=== PATIENT | male | born 1955 | race African-American/Black ===

== ENCOUNTER 2018-12-31 16:48 | Observation (INO) ==
[2018-12-31] MEDS ORDERED: MORPHINE 4 MG/1 ML VIAL IV STA (17:13)
[2018-12-31] MEDS ORDERED: FUROSEMIDE 40 MG/4 ML VIAL IV STA (17:13)
[2018-12-31] MEDS ORDERED: ASPIRIN 325 MG TABLET PO STA (17:13)
[2018-12-31] MEDS ORDERED: ONDANSETRON 4 MG/2 ML VIAL IV STA (17:13)
[2018-12-31] MEDS ORDERED: NITROGLYCERIN 2% OINT 1 INCH/GM PACK TOP STA (17:13)
[2018-12-31] MEDS ORDERED: PANTOPRAZOLE 40 MG VIAL IV STA (17:13)
[2018-12-31] MEDS ORDERED: ALUM/MAG/SIMETH/LIDO VISC 1:1 30 ML BOTTLE PO STA (17:13)
[2018-12-31] MEDS ORDERED: ALBUTEROL/IPRATROPIUM 3 ML NEB RESP TX STA (17:13)
[2018-12-31] MEDS ORDERED: methylPREDNISolone SOD SUC 125 MG/2 ML VIAL IV STA (17:13)
[2018-12-31 17:41] LABS: INR 0.9
[2018-12-31 17:49] LABS: Alanine Aminotransferase 32 U/L (16-61); Albumin 4.2 G/DL (3.4-5.0); Alkaline Phosphatase 71 U/L (45-117); Amylase 94 U/L (25-115); Aspartate Amino Transferase 26 U/L (0-37); Bilirubin,Total < 0.39 MG/DL (0.2-1.0); Blood Urea Nitrogen 18 MG/DL (7-18); Glucose 121 MG/DL (74-106); Osmolality,Calculated 281.4 MOS/KG (273-304); Potassium 3.6 MMOL/L (3.5-5.1); Sodium 140 MMOL/L (136-145); Total Protein 8.1 G/DL (6.4-8.3)
[2018-12-31 18:19] LABS: Basophils % 0.2 % (0.0-0.8); Hemoglobin 15.4 GM/DL (14.0-18.0); Immature Granulocytes % 0.4 %; Immature Granulocytes Absolute 0.05 #; Lymphocytes # 1.2 10*3/uL (1.4-4.0); Lymphocytes % 9.8 % (21.2-54.2); Mean Corpuscular HGB Conc 34.2 GM/DL (32-36); Mean Corpuscular Hemoglobin 34 PG (27-34); Mean Corpuscular Volume 98.5 FL (87-102); Mean Platelet Volume 10.1 FL (9.6-12.0); Monocytes # 0.9 10*3/uL (0.11-0.8); Monocytes % 7.4 % (1.7-12.7); Neutrophils # 10.4 10*3/uL (1.4-7.4); Neutrophils % 82.2 % (38.7-73.9); Platelet Count 320 T/CUMM (130-400); Red Blood Count 4.57 MC/CUMM (3.8-5.5); Red Cell Distribution Width 13.3 % (9.3-17.3); White Blood Count 12.6 T/CUMM (4-12)
[2018-12-31 18:39] LABS: Apearance,Urine CLEAR (Clear); Bacteria,Urine Occasional /HPF (Few); Bilirubin,Urine Negative (Negative); Blood, Urine Negative (Negative); Glucose,Urine (UA) Negative (Negative); Hyaline Casts,Urine 1 /LPF (0-3); Ketones,Urine Negative (Negative); Nitrite,Urine Negative (Negative); Protein,Urine Negative; RBC,Urine <1 /HPF (0-4); Squamous Epithelial Cell,Urine Occasional /HPF (0-10); Urine Color Yellow (Yellow); Urine Specific Gravity 1.013 (1.001-1.035); Urine Urobilinogen < 2.0 EU/DL (0.2-1.0); WBC,Urine 1 /HPF (0-6)
[2018-12-31] MEDS ORDERED: ACETAMINOPHEN 325 MG TABLET PO PRN (18:59)
[2018-12-31] MEDS ORDERED: ONDANSETRON 4 MG/2 ML VIAL IV PRN (18:59)
[2018-12-31] MEDS ORDERED: CYCLOBENZAPRINE 10 MG TABLET PO PRN (19:02)
[2018-12-31] MEDS ORDERED: MORPHINE 4 MG/1 ML VIAL IV PRN (19:08)
[2018-12-31 19:12] LABS: Barbiturates Screen,Urine Negative (Negative); Benzodiazepines Screen,Urine Negative (Negative); Cannabinoid Screen,Urine Negative (Negative); Opiate Screen,Urine Negative (Negative); Phencyclidine Screen,Urine Negative (Negative)
[2018-12-31] MEDS: ALBUTEROL/IPRATROPIUM 3 ML NEB RESP TX SCH (19:33)
[2018-12-31] MEDS: ENOXAPARIN 40 MG/0.4 ML SYRINGE SUBCUT SCH (20:50)
[2018-12-31] MEDS: cloNIDine 0.1 MG TABLET PO SCH (20:50)
[2018-12-31] MEDS: MAGNESIUM CHLORIDE 64 MG TABLET PO SCH (20:51)
[2018-12-31] MEDS: chlordiazePOXIDE 25 MG CAPSULE PO SCH (20:51)
[2018-12-31] MEDS: THIAMINE 100 MG TABLET PO SCH (20:51)
[2018-12-31 21:12] LABS: Troponin I < 0.015 NG/ML (0.00-0.045)
[2019-01-01] MEDS: traMADol 50 MG TABLET PO PRN ×2 (00:21→08:13)
[2019-01-01] MEDS: ALBUTEROL/IPRATROPIUM 3 ML NEB RESP TX SCH ×4 (02:02→19:48)
[2019-01-01 04:55] LABS: Basophils % 0.1 % (0.0-0.8); Hematocrit 43.7 VOL% (42.0-52.0); Hemoglobin 14.8 GM/DL (14.0-18.0); Immature Granulocytes % 0.6 %; Immature Granulocytes Absolute 0.08 #; Lymphocytes # 0.2 10*3/uL (1.4-4.0); Lymphocytes % 1.9 % (21.2-54.2); Mean Corpuscular HGB Conc 33.9 GM/DL (32-36); Mean Corpuscular Hemoglobin 34 PG (27-34); Mean Corpuscular Volume 99.3 FL (87-102); Mean Platelet Volume 10.8 FL (9.6-12.0); Monocytes # 0.3 10*3/uL (0.11-0.8); Monocytes % 2.7 % (1.7-12.7); Neutrophils # 11.9 10*3/uL (1.4-7.4); Neutrophils % 94.7 % (38.7-73.9); Platelet Count 278 T/CUMM (130-400); Red Cell Distribution Width 13.4 % (9.3-17.3); White Blood Count 12.6 T/CUMM (4-12)
[2019-01-01 05:18] LABS: Troponin I < 0.015 NG/ML (0.00-0.045)
[2019-01-01 05:24] LABS: Albumin 4.2 G/DL (3.4-5.0); Bilirubin,Total 0.8 MG/DL (0.2-1.0); Calcium 9.2 MG/DL (8.5-10.1); Potassium 4.1 MMOL/L (3.5-5.1); Thyroid Stimulating Hormone 0.153 uIU/ml (0.358-3.74); Total Protein 7.9 G/DL (6.4-8.3)
[2019-01-01 06:49] LABS: Lymphocytes 3 % (20-55); Segmented Neutrophils 96 % (50-85); Total Cells Counted 100
[2019-01-01 06:50] LABS: Platelet Estimate Normal; Schistocytes Slight
[2019-01-01] MEDS ORDERED: FUROSEMIDE 40 MG/4 ML VIAL IV ONE (07:17)
[2019-01-01] MEDS: PANTOPRAZOLE 40 MG TABLET PO SCH (08:14)
[2019-01-01] MEDS: chlordiazePOXIDE 25 MG CAPSULE PO SCH ×3 (08:14→20:58)
[2019-01-01] MEDS: THIAMINE 100 MG TABLET PO SCH ×2 (08:14→21:06)
[2019-01-01] MEDS: POTASSIUM CHLORIDE 10 MEQ TABLET PO SCH (08:14)
[2019-01-01] MEDS: ASPIRIN EC 325 MG TABLET PO SCH (08:14)
[2019-01-01] MEDS: cloNIDine 0.1 MG TABLET PO SCH (08:14)
[2019-01-01] MEDS: MAGNESIUM CHLORIDE 64 MG TABLET PO SCH ×2 (08:15→20:58)
[2019-01-01] MEDS: LEVOFLOXACIN INJ 500 MG in PREMIX 1 EACH IV SCH (08:15)
[2019-01-01] MEDS: NICOTINE 14 MG/24 HR PATCH TRANSDERM SCH (08:16)
[2019-01-01] MEDS ORDERED: VERAPAMIL 120 MG TABLET PO SCH (09:00)
[2019-01-01] MEDS ORDERED: LORazepam 2 MG/1 ML VIAL IV PRN (16:10)
[2019-01-01] MEDS: BUDESONIDE/FORMOTEROL 160-4.5 INHALER 6 GM INH SCH (20:58)
[2019-01-01] MEDS ORDERED: MONTELUKAST 10 MG TABLET PO SCH (21:00)
[2019-01-01] MEDS: ENOXAPARIN 40 MG/0.4 ML SYRINGE SUBCUT SCH (21:00)
[2019-01-01] MEDS ORDERED: ATORVASTATIN 10 MG TABLET PO SCH (21:00)
[2019-01-02] MEDS: ALBUTEROL/IPRATROPIUM 3 ML NEB RESP TX SCH ×2 (01:26→07:56)
[2019-01-02] MEDS: chlordiazePOXIDE 25 MG CAPSULE PO SCH (05:46)
[2019-01-02 06:09] LABS: Risk Ratio 2.3; VLDL CHOLESTEROL 25.4 MG/DL
[2019-01-02] MEDS: POTASSIUM CHLORIDE 10 MEQ TABLET PO SCH (08:05)
[2019-01-02] MEDS: THIAMINE 100 MG TABLET PO SCH (08:05)
[2019-01-02] MEDS: PANTOPRAZOLE 40 MG TABLET PO SCH (08:06)
[2019-01-02] MEDS: ASPIRIN EC 325 MG TABLET PO SCH (08:06)
[2019-01-02] MEDS: MAGNESIUM CHLORIDE 64 MG TABLET PO SCH (08:06)
[2019-01-02] MEDS: LEVOFLOXACIN INJ 500 MG in PREMIX 1 EACH IV SCH (08:06)
[2019-01-02] MEDS: BUDESONIDE/FORMOTEROL 160-4.5 INHALER 6 GM INH SCH (08:07)
[2019-01-02] MEDS: NICOTINE 14 MG/24 HR PATCH TRANSDERM SCH (08:08)
[2019-01-02] MEDS ORDERED: FOLIC ACID 1 MG TABLET PO SCH (09:00)
[2019-01-02] MEDS ORDERED: VERAPAMIL SR 240 MG TABLET PO SCH (09:00)
[2019-01-02 09:19] VITALS: BP 128/83
== END 2019-01-02 10:55 | disposition home or self-care (01) ==
LOC: EDBD → EDUNIT# → N.ED 16:48 → N.EDINP 16:48 → SUATTDRO 18:43 → N.5E 19:52
PROVIDERS: ADMIT Internal Medicine; ATTEND Internal Medicine

== ENCOUNTER 2019-06-14 13:30 | Inpatient (IN) ==
[2019-06-14] MEDS ORDERED: methylPREDNISolone SOD SUC 125 MG/2 ML VIAL ONE (13:38)
[2019-06-14] MEDS ORDERED: FAMOTIDINE 20 MG/2 ML VIAL IV ONE (13:38)
[2019-06-14] MEDS ORDERED: methylPREDNISolone SOD SUC 125 MG/2 ML VIAL IV STA (13:43)
[2019-06-14] MEDS ORDERED: FAMOTIDINE 20 MG/2 ML VIAL IV STA (13:43)
[2019-06-14] MEDS ORDERED: ONDANSETRON 4 MG/2 ML VIAL IV PRN (17:27)
[2019-06-14] MEDS ORDERED: ALBUTEROL 2.5 MG/3 ML NEB RESP TX PRN ×2 (17:27→23:00)
[2019-06-14 17:32] LABS: Basophils % 0.2 % (0.0-0.8); Hematocrit 54.7 VOL% (42.0-52.0); Hemoglobin 18.4 GM/DL (14.0-18.0); Immature Granulocytes % 0.4 %; Immature Granulocytes Absolute 0.04 #; Lymphocytes # 0.3 10*3/uL (1.4-4.0); Lymphocytes % 2.9 % (21.2-54.2); Mean Corpuscular HGB Conc 33.6 GM/DL (32-36); Mean Corpuscular Volume 100.4 FL (87-102); Mean Platelet Volume 10.5 FL (9.6-12.0); Monocytes % 1.3 % (1.7-12.7); Neutrophils % 95.2 % (38.7-73.9); Platelet Count 223 T/CUMM (130-400); Red Blood Count 5.45 MC/CUMM (3.8-5.5); Red Cell Distribution Width 14.6 % (9.3-17.3); White Blood Count 10.5 T/CUMM (4-12)
[2019-06-14 17:57] LABS: Calcium 9.7 MG/DL (8.5-10.1); Osmolality,Calculated 278.4 MOS/KG (273-304)
[2019-06-14 17:59] LABS: Anisocytosis 1+; Lymphocytes 2 % (20-55); Macrocytosis 1+; Platelet Estimate Normal; Polychromasia Slight; Segmented Neutrophils 98 % (50-85); Total Cells Counted 100
[2019-06-14 18:00] LABS: Atypical Lymphocytes 1+
[2019-06-14] MEDS ORDERED: LORazepam 1 MG TABLET PO PRN (19:09)
[2019-06-14] MEDS ORDERED: ONDANSETRON ODT 4 MG TABLET PO PRN (19:49)
[2019-06-14] MEDS: ENOXAPARIN 40 MG/0.4 ML SYRINGE SUBCUT SCH (20:15)
[2019-06-14] MEDS: methylPREDNISolone SOD SUC 125 MG/2 ML VIAL IV SCH (20:15)
[2019-06-14] MEDS: MAGNESIUM CHLORIDE 64 MG TABLET PO SCH (20:30)
[2019-06-14] MEDS: CYCLOBENZAPRINE 10 MG TABLET PO SCH (20:30)
[2019-06-14] MEDS: diphenhydrAMINE 50 MG/1 ML VIAL IV SCH ×2 (20:30→23:48)
[2019-06-14] MEDS: BUDESONIDE/FORMOTEROL 160-4.5 INHALER 6 GM INH SCH (22:22)
[2019-06-14] MEDS ORDERED: MAGNESIUM SULF RIDER 1 GM in PREMIX 1 EACH IV ONE (22:30)
[2019-06-14] MEDS: MAGNESIUM SULF RIDER 1 GM in PREMIX 1 EACH IV ONE ×2 (22:46→22:51)
[2019-06-15] MEDS ORDERED: hydrALAZINE 20 MG/1 ML VIAL IV PRN (00:05)
[2019-06-15] MEDS: methylPREDNISolone SOD SUC 125 MG/2 ML VIAL IV SCH ×4 (02:31→21:34)
[2019-06-15] MEDS: FAMOTIDINE 20 MG/2 ML VIAL IV SCH ×2 (02:31→14:31)
[2019-06-15] MEDS: diphenhydrAMINE 50 MG/1 ML VIAL IV SCH ×4 (05:58→23:44)
[2019-06-15 06:43] LABS: Basophils % 0.2 % (0.0-0.8); Hematocrit 56.6 VOL% (42.0-52.0); Hemoglobin 19.2 GM/DL (14.0-18.0); Immature Granulocytes % 0.2 %; Immature Granulocytes Absolute 0.02 #; Lymphocytes # 0.4 10*3/uL (1.4-4.0); Mean Corpuscular HGB Conc 33.9 GM/DL (32-36); Mean Corpuscular Volume 99.5 FL (87-102); Monocytes % 1.6 % (1.7-12.7); Platelet Count 211 T/CUMM (130-400); Red Blood Count 5.69 MC/CUMM (3.8-5.5); Red Cell Distribution Width 14.6 % (9.3-17.3); White Blood Count 8.8 T/CUMM (4-12)
[2019-06-15 07:05] LABS: Albumin 3.3 G/DL (3.4-5.0); Calcium 9.3 MG/DL (8.5-10.1); Total Protein 7.5 G/DL (6.4-8.3)
[2019-06-15 07:15] LABS: Band Neutrophils 3 % (0-10); Lymphocytes 3 % (20-55); Platelet Estimate Normal; Segmented Neutrophils 93 % (50-85); Total Cells Counted 100
[2019-06-15 07:16] LABS: Macrocytosis 1+
[2019-06-15] MEDS: POTASSIUM CHLORIDE 20 MEQ/15 ML UDCUP PO SCH (08:58)
[2019-06-15] MEDS: FOLIC ACID 1 MG TABLET PO SCH (08:59)
[2019-06-15] MEDS: MAGNESIUM CHLORIDE 64 MG TABLET PO SCH ×2 (08:59→21:34)
[2019-06-15] MEDS: MULTIVITAMIN (CENTRUM) TABLET PO SCH (08:59)
[2019-06-15] MEDS: VERAPAMIL 120 MG TABLET PO SCH (09:00)
[2019-06-15] MEDS: THIAMINE 100 MG TABLET PO SCH (09:03)
[2019-06-15] MEDS: BUDESONIDE/FORMOTEROL 160-4.5 INHALER 6 GM INH SCH ×2 (10:32→21:35)
[2019-06-15] MEDS: ENOXAPARIN 40 MG/0.4 ML SYRINGE SUBCUT SCH (21:34)
[2019-06-15] MEDS: CYCLOBENZAPRINE 10 MG TABLET PO SCH (21:34)
[2019-06-16] MEDS: FAMOTIDINE 20 MG/2 ML VIAL IV SCH ×2 (02:12→20:42)
[2019-06-16] MEDS: methylPREDNISolone SOD SUC 125 MG/2 ML VIAL IV SCH ×4 (02:21→20:42)
[2019-06-16] MEDS: diphenhydrAMINE 50 MG/1 ML VIAL IV SCH ×3 (06:13→17:32)
[2019-06-16 06:14] LABS: Calcium 9.6 MG/DL (8.5-10.1)
[2019-06-16] MEDS: VERAPAMIL 120 MG TABLET PO SCH (10:33)
[2019-06-16] MEDS: MULTIVITAMIN (CENTRUM) TABLET PO SCH (10:34)
[2019-06-16] MEDS: THIAMINE 100 MG TABLET PO SCH (10:34)
[2019-06-16] MEDS: MAGNESIUM CHLORIDE 64 MG TABLET PO SCH ×2 (10:34→20:41)
[2019-06-16] MEDS: hydroCHLOROthiazide 12.5 MG CAPSULE PO SCH (10:34)
[2019-06-16] MEDS: FOLIC ACID 1 MG TABLET PO SCH (10:34)
[2019-06-16] MEDS: POTASSIUM CHLORIDE 20 MEQ/15 ML UDCUP PO SCH (10:35)
[2019-06-16] MEDS: BUDESONIDE/FORMOTEROL 160-4.5 INHALER 6 GM INH SCH ×2 (14:45→20:43)
[2019-06-16] MEDS: CYCLOBENZAPRINE 10 MG TABLET PO SCH (20:41)
[2019-06-16] MEDS: ENOXAPARIN 40 MG/0.4 ML SYRINGE SUBCUT SCH (20:42)
[2019-06-17] MEDS: diphenhydrAMINE 50 MG/1 ML VIAL IV SCH ×3 (00:32→11:37)
[2019-06-17] MEDS: methylPREDNISolone SOD SUC 125 MG/2 ML VIAL IV SCH ×2 (03:15→09:02)
[2019-06-17 04:54] LABS: Basophils % 0.1 % (0.0-0.8); Hematocrit 45.2 VOL% (42.0-52.0); Immature Granulocytes % 0.5 %; Immature Granulocytes Absolute 0.05 #; Lymphocytes # 0.3 10*3/uL (1.4-4.0); Lymphocytes % 2.3 % (21.2-54.2); Mean Corpuscular HGB Conc 33.2 GM/DL (32-36); Mean Corpuscular Volume 100.2 FL (87-102); Mean Platelet Volume 10.7 FL (9.6-12.0); Monocytes % 5.4 % (1.7-12.7); Neutrophils % 91.7 % (38.7-73.9); Platelet Count 192 T/CUMM (130-400); Red Blood Count 4.51 MC/CUMM (3.8-5.5); Red Cell Distribution Width 14.6 % (9.3-17.3); White Blood Count 10.8 T/CUMM (4-12)
[2019-06-17 05:43] LABS: Lymphocytes 3 % (20-55); Segmented Neutrophils 97 % (50-85); Total Cells Counted 100
[2019-06-17 05:44] LABS: Anisocytosis 1+; Platelet Estimate Adequate
[2019-06-17] MEDS: FAMOTIDINE 20 MG/2 ML VIAL IV SCH (09:04)
[2019-06-17] MEDS: THIAMINE 100 MG TABLET PO SCH (09:07)
[2019-06-17] MEDS: hydroCHLOROthiazide 12.5 MG CAPSULE PO SCH (09:07)
[2019-06-17] MEDS: FOLIC ACID 1 MG TABLET PO SCH (09:07)
[2019-06-17] MEDS: MULTIVITAMIN (CENTRUM) TABLET PO SCH (09:07)
[2019-06-17] MEDS: MAGNESIUM CHLORIDE 64 MG TABLET PO SCH (09:07)
[2019-06-17] MEDS: VERAPAMIL 120 MG TABLET PO SCH (09:07)
[2019-06-17] MEDS: POTASSIUM CHLORIDE 20 MEQ/15 ML UDCUP PO SCH (09:08)
[2019-06-17] MEDS: BUDESONIDE/FORMOTEROL 160-4.5 INHALER 6 GM INH SCH (09:41)
[2019-06-17 11:59] VITALS: BP 158/91
== END 2019-06-17 13:07 | disposition home or self-care (01) | DRG 811 ==
LOC: EDUNIT# → EDBD → N.ED 13:30 → SUATTDRO 17:27 → SUPCPDRO 17:27 → N.EDINP 17:27 → N.CC 18:20 → N.2E 06-15 18:48
PROVIDERS: ADMIT Family Medicine; ATTEND Internal Medicine

== ENCOUNTER 2019-12-19 11:46 | Inpatient (IN) ==
[2019-12-19] MEDS ORDERED: MORPHINE 4 MG/1 ML VIAL IV STA (11:58)
[2019-12-19] MEDS ORDERED: ONDANSETRON 4 MG/2 ML VIAL IV STA (11:58)
[2019-12-19] MEDS ORDERED: NITROGLYCERIN 2% OINT 1 INCH/GM PACK TOP STA (11:58)
[2019-12-19] MEDS ORDERED: ASPIRIN 325 MG TABLET PO STA (11:58)
[2019-12-19] MEDS ORDERED: ALUM/MAG/SIMETH/LIDO VISC 1:1 30 ML BOTTLE PO STA (11:58)
[2019-12-19 13:14] LABS: Apearance,Urine CLEAR (Clear); Bilirubin,Urine Negative (Negative); Blood, Urine Small mg/dL (Negative); Glucose,Urine (UA) Negative (Negative); Ketones,Urine 20 mg/dL (Negative); Mucus,Urine Occasional /LPF (Occasional); Nitrite,Urine Negative (Negative); Protein,Urine Negative; RBC,Urine 2 /HPF (0-4); Squamous Epithelial Cell,Urine Occasional /HPF (0-10); Urine Color Yellow (Yellow); Urine Specific Gravity 1.016 (1.001-1.035); Urine Urobilinogen < 2.0 EU/DL (0.2-1.0); WBC,Urine <1 /HPF (0-6)
[2019-12-19 13:24] LABS: Barbiturates Screen,Urine Negative (Negative); Benzodiazepines Screen,Urine Negative (Negative); Cannabinoid Screen,Urine Negative (Negative); Opiate Screen,Urine Negative (Negative); Phencyclidine Screen,Urine Negative (Negative)
[2019-12-19 13:33] LABS: Basophils % 0.4 % (0.0-0.8); Eosinophils % 0.1 % (0.00-10.9); Hematocrit 47.8 VOL% (42.0-52.0); Hemoglobin 16.8 GM/DL (14.0-18.0); Immature Granulocytes % 0.3 %; Immature Granulocytes Absolute 0.02 #; Lymphocytes % 12.2 % (21.2-54.2); Mean Corpuscular HGB Conc 35.1 GM/DL (32-36); Mean Corpuscular Volume 94.7 FL (87-102); Mean Platelet Volume 9.9 FL (9.6-12.0); Monocytes % 7.4 % (1.7-12.7); Neutrophils % 79.6 % (38.7-73.9); Platelet Count 272 T/CUMM (130-400); Red Blood Count 5.05 MC/CUMM (3.8-5.5); Red Cell Distribution Width 15.3 % (9.3-17.3); White Blood Count 7.9 T/CUMM (4-12)
[2019-12-19 13:44] LABS: PT Patient Result 10.7 SECS (9.6-12.2)
[2019-12-19 13:57] LABS: Albumin 3.8 G/DL (3.4-5.0); Bilirubin,Total 0.8 MG/DL (0.2-1.0); Calcium 9.1 MG/DL (8.5-10.1); Osmolality,Calculated 272.7 MOS/KG (273-304); Total Protein 7.2 G/DL (6.4-8.3)
[2019-12-19] MEDS ORDERED: POTASSIUM CHLORIDE 20 MEQ TABLET PO STA (14:23)
[2019-12-19] MEDS ORDERED: MAGNESIUM SULF RIDER 2 GM in PREMIX 1 EACH IV STA (14:23)
[2019-12-19] MEDS ORDERED: diphenhydrAMINE CAP 25 MG CAPSULE PO PRN (14:35)
[2019-12-19] MEDS ORDERED: ZALEPLON 5 MG CAPSULE PO PRN (14:35)
[2019-12-19] MEDS ORDERED: PROMETHAZINE 25 MG/1 ML VIAL IM PRN (14:35)
[2019-12-19] MEDS ORDERED: MORPHINE 4 MG/1 ML VIAL IV PRN (14:35)
[2019-12-19] MEDS ORDERED: ONDANSETRON 4 MG/2 ML VIAL IV PRN (14:35)
[2019-12-19] MEDS ORDERED: ACETAMINOPHEN 325 MG TABLET PO PRN (14:35)
[2019-12-19] MEDS ORDERED: ALBUTEROL 2.5 MG/3 ML NEB RESP TX PRN (15:00)
[2019-12-19] MEDS ORDERED: ENOXAPARIN 40 MG/0.4 ML SYRINGE SUBCUT SCH (15:00)
[2019-12-19] MEDS ORDERED: cefTRIAXone 1,000 MG in SYRINGE 1 EACH IV SCH (15:00)
[2019-12-19] MEDS ORDERED: AZITHROMYCIN INJ 500 MG in SODIUM CHLORIDE 0.9% 250 ML IV SCH (15:30)
[2019-12-19] MEDS ORDERED: LABETALOL 100 MG/20 ML VIAL IV PRN (17:04)
[2019-12-19] MEDS: ALBUTEROL/IPRATROPIUM 3 ML NEB RESP TX SCH (19:29)
[2019-12-19] MEDS: BUDESONIDE/FORMOTEROL 160-4.5 INHALER 6 GM INH SCH ×2 (19:59→21:52)
[2019-12-19] MEDS: chlordiazePOXIDE 10 MG CAPSULE PO SCH ×2 (19:59→21:31)
[2019-12-19] MEDS: hydroCHLOROthiazide 12.5 MG CAPSULE PO SCH (20:19)
[2019-12-19] MEDS: VERAPAMIL SR 180 MG TABLET PO SCH (20:19)
[2019-12-19] MEDS: LEVOFLOXACIN INJ 500 MG in PREMIX 1 EACH IV SCH (20:19)
[2019-12-19] MEDS: CYCLOBENZAPRINE 10 MG TABLET PO SCH (21:32)
[2019-12-19] MEDS: PIPERACILLIN/TAZOBACTAM 3,375 MG in SODIUM CHLORIDE 0.9% 100 ML IV SCH (21:33)
[2019-12-20] MEDS: ALBUTEROL/IPRATROPIUM 3 ML NEB RESP TX SCH ×4 (00:59→20:17)
[2019-12-20 05:37] LABS: Basophils % 0.2 % (0.0-0.8); Eosinophils % 0.3 % (0.00-10.9); Hematocrit 50.9 VOL% (42.0-52.0); Hemoglobin 17.7 GM/DL (14.0-18.0); Immature Granulocytes % 0.2 %; Immature Granulocytes Absolute 0.01 #; Lymphocytes % 14.9 % (21.2-54.2); Mean Corpuscular HGB Conc 34.8 GM/DL (32-36); Mean Platelet Volume 9.8 FL (9.6-12.0); Monocytes % 10.3 % (1.7-12.7); Neutrophils % 74.1 % (38.7-73.9); Platelet Count 252 T/CUMM (130-400); Red Blood Count 5.36 MC/CUMM (3.8-5.5); Red Cell Distribution Width 15.5 % (9.3-17.3); White Blood Count 6.6 T/CUMM (4-12)
[2019-12-20] MEDS: PIPERACILLIN/TAZOBACTAM 3,375 MG in SODIUM CHLORIDE 0.9% 100 ML IV SCH ×3 (05:41→21:42)
[2019-12-20 06:02] LABS: Calcium 9.4 MG/DL (8.5-10.1); Osmolality,Calculated 266.2 MOS/KG (273-304); Risk Ratio 2.3; VLDL CHOLESTEROL 20.2 MG/DL
[2019-12-20] MEDS: BUDESONIDE/FORMOTEROL 160-4.5 INHALER 6 GM INH SCH ×2 (09:55→21:39)
[2019-12-20] MEDS: POTASSIUM CHLORIDE 20 MEQ TABLET PO SCH ×2 (09:55→11:53)
[2019-12-20] MEDS: VERAPAMIL SR 180 MG TABLET PO SCH (09:56)
[2019-12-20] MEDS: chlordiazePOXIDE 10 MG CAPSULE PO SCH ×3 (09:56→21:38)
[2019-12-20] MEDS: PANTOPRAZOLE 40 MG TABLET PO SCH (09:56)
[2019-12-20] MEDS: ASPIRIN 325 MG TABLET PO SCH (09:56)
[2019-12-20] MEDS: hydroCHLOROthiazide 12.5 MG CAPSULE PO SCH (09:56)
[2019-12-20 14:30] LABS: Eosinophils,Pleural Fluid 2 %; Lymphocytes,Pleural Fluid 52 %; Neutrophils,Pleural Fluid 46 %
[2019-12-20 14:31] LABS: RBC,Pleural Fluid 4172 T/CUMM
[2019-12-20] MEDS: LEVOFLOXACIN INJ 500 MG in PREMIX 1 EACH IV SCH (18:48)
[2019-12-20] MEDS: CYCLOBENZAPRINE 10 MG TABLET PO SCH (21:38)
[2019-12-21] MEDS: ALBUTEROL/IPRATROPIUM 3 ML NEB RESP TX SCH ×4 (00:13→19:54)
[2019-12-21] MEDS: PIPERACILLIN/TAZOBACTAM 3,375 MG in SODIUM CHLORIDE 0.9% 100 ML IV SCH ×3 (06:33→22:45)
[2019-12-21] MEDS ORDERED: LORazepam 2 MG/1 ML VIAL IV PRN (08:50)
[2019-12-21] MEDS: NICOTINE 21 MG/24 HR PATCH TRANSDERM SCH (09:06)
[2019-12-21] MEDS: chlordiazePOXIDE 25 MG CAPSULE PO SCH ×3 (09:07→21:34)
[2019-12-21] MEDS: BUDESONIDE/FORMOTEROL 160-4.5 INHALER 6 GM INH SCH ×2 (09:08→21:34)
[2019-12-21] MEDS: hydroCHLOROthiazide 12.5 MG CAPSULE PO SCH (09:08)
[2019-12-21] MEDS: PANTOPRAZOLE 40 MG TABLET PO SCH (09:08)
[2019-12-21] MEDS: VERAPAMIL SR 180 MG TABLET PO SCH (09:08)
[2019-12-21] MEDS: ASPIRIN 325 MG TABLET PO SCH (09:08)
[2019-12-21] MEDS: LEVOFLOXACIN 500 MG TABLET PO SCH (09:10)
[2019-12-21] MEDS ORDERED: AZITHROMYCIN 250 MG TABLET PO SCH (17:00)
[2019-12-21] MEDS: CYCLOBENZAPRINE 10 MG TABLET PO SCH (21:34)
[2019-12-22] MEDS: ALBUTEROL/IPRATROPIUM 3 ML NEB RESP TX SCH ×4 (01:30→19:12)
[2019-12-22] MEDS: PIPERACILLIN/TAZOBACTAM 3,375 MG in SODIUM CHLORIDE 0.9% 100 ML IV SCH ×3 (05:53→21:05)
[2019-12-22] MEDS ORDERED: POTASSIUM CHLORIDE 20 MEQ TABLET PO SCH (07:30)
[2019-12-22] MEDS: LEVOFLOXACIN 500 MG TABLET PO SCH (08:10)
[2019-12-22] MEDS: VERAPAMIL SR 180 MG TABLET PO SCH (08:10)
[2019-12-22] MEDS: hydroCHLOROthiazide 12.5 MG CAPSULE PO SCH (08:10)
[2019-12-22] MEDS: chlordiazePOXIDE 25 MG CAPSULE PO SCH ×5 (08:10→21:04)
[2019-12-22] MEDS: ASPIRIN 325 MG TABLET PO SCH (08:10)
[2019-12-22] MEDS: NICOTINE 21 MG/24 HR PATCH TRANSDERM SCH (08:10)
[2019-12-22] MEDS: PANTOPRAZOLE 40 MG TABLET PO SCH (08:10)
[2019-12-22] MEDS: BUDESONIDE/FORMOTEROL 160-4.5 INHALER 6 GM INH SCH ×2 (08:11→21:05)
[2019-12-22] MEDS ORDERED: chlordiazePOXIDE 25 MG CAPSULE PO ONE (08:31)
[2019-12-22] MEDS: METOPROLOL TARTRATE 25 MG TABLET PO SCH ×2 (09:01→21:04)
[2019-12-22] MEDS: CYCLOBENZAPRINE 10 MG TABLET PO SCH (21:04)
[2019-12-23] MEDS: ALBUTEROL/IPRATROPIUM 3 ML NEB RESP TX SCH ×4 (00:12→19:21)
[2019-12-23 05:01] LABS: Basophils % 0.5 % (0.0-0.8); Eosinophils # 0.2 10*3/uL (0.0-0.87); Eosinophils % 3.3 % (0.00-10.9); Hematocrit 44.8 VOL% (42.0-52.0); Hemoglobin 15.2 GM/DL (14.0-18.0); Immature Granulocytes % 0.3 %; Immature Granulocytes Absolute 0.02 #; Lymphocytes % 15.3 % (21.2-54.2); Mean Corpuscular HGB Conc 33.9 GM/DL (32-36); Mean Corpuscular Volume 98.2 FL (87-102); Mean Platelet Volume 10.3 FL (9.6-12.0); Monocytes % 14.2 % (1.7-12.7); Neutrophils % 66.4 % (38.7-73.9); Platelet Count 190 T/CUMM (130-400); Red Blood Count 4.56 MC/CUMM (3.8-5.5); Red Cell Distribution Width 16.2 % (9.3-17.3); White Blood Count 6.3 T/CUMM (4-12)
[2019-12-23 05:30] LABS: Calcium 9.7 MG/DL (8.5-10.1)
[2019-12-23 05:31] LABS: Calcium 9.3 MG/DL (8.5-10.1)
[2019-12-23] MEDS: PIPERACILLIN/TAZOBACTAM 3,375 MG in SODIUM CHLORIDE 0.9% 100 ML IV SCH ×3 (06:35→21:59)
[2019-12-23] MEDS ORDERED: MAGNESIUM SULF RIDER 2 GM in PREMIX 1 EACH IV ONE (07:39)
[2019-12-23] MEDS: NICOTINE 21 MG/24 HR PATCH TRANSDERM SCH (08:27)
[2019-12-23] MEDS: hydroCHLOROthiazide 12.5 MG CAPSULE PO SCH (08:29)
[2019-12-23] MEDS: ASPIRIN 325 MG TABLET PO SCH (08:29)
[2019-12-23] MEDS: chlordiazePOXIDE 25 MG CAPSULE PO SCH ×4 (08:29→20:49)
[2019-12-23] MEDS: VERAPAMIL SR 180 MG TABLET PO SCH (08:29)
[2019-12-23] MEDS: PANTOPRAZOLE 40 MG TABLET PO SCH (08:30)
[2019-12-23] MEDS: BUDESONIDE/FORMOTEROL 160-4.5 INHALER 6 GM INH SCH ×2 (08:30→20:49)
[2019-12-23] MEDS: METOPROLOL TARTRATE 25 MG TABLET PO SCH ×2 (08:30→20:49)
[2019-12-23] MEDS: LEVOFLOXACIN 500 MG TABLET PO SCH (08:30)
[2019-12-23] MEDS: CYCLOBENZAPRINE 10 MG TABLET PO SCH (20:49)
[2019-12-24] MEDS: ALBUTEROL/IPRATROPIUM 3 ML NEB RESP TX SCH ×4 (00:12→19:15)
[2019-12-24] MEDS: PIPERACILLIN/TAZOBACTAM 3,375 MG in SODIUM CHLORIDE 0.9% 100 ML IV SCH ×3 (06:11→22:38)
[2019-12-24] MEDS: NICOTINE 21 MG/24 HR PATCH TRANSDERM SCH (08:36)
[2019-12-24] MEDS: chlordiazePOXIDE 25 MG CAPSULE PO SCH ×4 (08:37→20:59)
[2019-12-24] MEDS: ASPIRIN 325 MG TABLET PO SCH (08:37)
[2019-12-24] MEDS: METOPROLOL TARTRATE 25 MG TABLET PO SCH ×2 (08:37→20:59)
[2019-12-24] MEDS: VERAPAMIL SR 180 MG TABLET PO SCH (08:38)
[2019-12-24] MEDS: PANTOPRAZOLE 40 MG TABLET PO SCH (08:38)
[2019-12-24] MEDS: hydroCHLOROthiazide 12.5 MG CAPSULE PO SCH (08:38)
[2019-12-24] MEDS: BUDESONIDE/FORMOTEROL 160-4.5 INHALER 6 GM INH SCH ×2 (08:39→20:59)
[2019-12-24] MEDS: CYCLOBENZAPRINE 10 MG TABLET PO SCH (20:59)
[2019-12-25] MEDS: ALBUTEROL/IPRATROPIUM 3 ML NEB RESP TX SCH ×4 (00:50→20:05)
[2019-12-25 05:39] LABS: Calcium 9.2 MG/DL (8.5-10.1); Osmolality,Calculated 276.7 MOS/KG (273-304)
[2019-12-25] MEDS: PIPERACILLIN/TAZOBACTAM 3,375 MG in SODIUM CHLORIDE 0.9% 100 ML IV SCH (05:41)
[2019-12-25] MEDS ORDERED: MAGNESIUM SULF RIDER 2 GM in PREMIX 1 EACH IV ONE (07:21)
[2019-12-25] MEDS: BUDESONIDE/FORMOTEROL 160-4.5 INHALER 6 GM INH SCH ×2 (09:59→21:06)
[2019-12-25] MEDS: MAGNESIUM CHLORIDE 64 MG TABLET PO SCH ×2 (09:59→21:05)
[2019-12-25] MEDS: NICOTINE 21 MG/24 HR PATCH TRANSDERM SCH (09:59)
[2019-12-25] MEDS: PANTOPRAZOLE 40 MG TABLET PO SCH (10:00)
[2019-12-25] MEDS: ASPIRIN 325 MG TABLET PO SCH (10:00)
[2019-12-25] MEDS: hydroCHLOROthiazide 12.5 MG CAPSULE PO SCH (10:00)
[2019-12-25] MEDS: METOPROLOL TARTRATE 25 MG TABLET PO SCH ×2 (10:01→21:06)
[2019-12-25] MEDS: VERAPAMIL SR 180 MG TABLET PO SCH (10:04)
[2019-12-25] MEDS: AMOXICILLIN/CLAV 875 MG TABLET PO SCH ×2 (10:04→21:05)
[2019-12-25] MEDS: chlordiazePOXIDE 25 MG CAPSULE PO SCH (11:29)
[2019-12-25] MEDS: chlordiazePOXIDE 10 MG CAPSULE PO SCH ×2 (16:23→21:06)
[2019-12-26] MEDS: ALBUTEROL/IPRATROPIUM 3 ML NEB RESP TX SCH ×2 (00:23→07:45)
[2019-12-26 04:04] LABS: Basophils % 0.4 % (0.0-0.8); Eosinophils # 0.2 10*3/uL (0.0-0.87); Eosinophils % 2.7 % (0.00-10.9); Hemoglobin 14.4 GM/DL (14.0-18.0); Immature Granulocytes % 0.2 %; Immature Granulocytes Absolute 0.01 #; Lymphocytes # 0.8 10*3/uL (1.4-4.0); Lymphocytes % 14.2 % (21.2-54.2); Mean Corpuscular HGB Conc 33.5 GM/DL (32-36); Mean Corpuscular Volume 99.3 FL (87-102); Mean Platelet Volume 10.4 FL (9.6-12.0); Monocytes % 15.1 % (1.7-12.7); Neutrophils % 67.4 % (38.7-73.9); Platelet Count 188 T/CUMM (130-400); Red Blood Count 4.33 MC/CUMM (3.8-5.5); Red Cell Distribution Width 16.2 % (9.3-17.3); White Blood Count 5.6 T/CUMM (4-12)
[2019-12-26 04:19] LABS: Calcium 9.2 MG/DL (8.5-10.1); Osmolality,Calculated 275.7 MOS/KG (273-304)
[2019-12-26] MEDS ORDERED: MIDAZOLAM 2 MG/2 ML VIAL ONE (06:53)
[2019-12-26] MEDS ORDERED: PROMETHAZINE 25 MG/1 ML VIAL IM ONE (07:00)
[2019-12-26] MEDS ORDERED: MEPERIDINE 50 MG/1 ML VIAL IM ONE (07:00)
[2019-12-26] MEDS ORDERED: LIDOCAINE 1% 20 ML VIAL MISC INJ ONE (07:30)
[2019-12-26] MEDS ORDERED: LIDOCAINE 2% VISCOUS 100 ML BOTTLE SWISH/SPIT ONE (07:30)
[2019-12-26] MEDS ORDERED: LIDOCAINE 2% 20 ML VIAL RESP TX ONE (07:30)
[2019-12-26] MEDS ORDERED: MIDAZOLAM 2 MG/2 ML VIAL IV ONE (07:30)
[2019-12-26 08:37] VITALS: BP 110/65
[2019-12-26] MEDS ORDERED: MAGNESIUM SULF RIDER 4 GM in PREMIX 1 EACH IV PRN (09:32)
[2019-12-26] MEDS ORDERED: MAGNESIUM SULF RIDER 2 GM in PREMIX 1 EACH IV PRN (09:32)
[2019-12-26] MEDS: BUDESONIDE/FORMOTEROL 160-4.5 INHALER 6 GM INH SCH (09:38)
[2019-12-26] MEDS: VERAPAMIL SR 180 MG TABLET PO SCH (09:38)
[2019-12-26] MEDS: hydroCHLOROthiazide 12.5 MG CAPSULE PO SCH (09:38)
[2019-12-26] MEDS: MAGNESIUM CHLORIDE 64 MG TABLET PO SCH (09:38)
[2019-12-26] MEDS: METOPROLOL TARTRATE 25 MG TABLET PO SCH (09:38)
[2019-12-26] MEDS: AMOXICILLIN/CLAV 875 MG TABLET PO SCH (09:38)
[2019-12-26] MEDS: PANTOPRAZOLE 40 MG TABLET PO SCH (09:38)
[2019-12-26] MEDS: chlordiazePOXIDE 10 MG CAPSULE PO SCH (09:38)
[2019-12-26] MEDS: NICOTINE 21 MG/24 HR PATCH TRANSDERM SCH (09:38)
[2019-12-26] MEDS: ASPIRIN 325 MG TABLET PO SCH (09:38)
== END 2019-12-26 11:27 | disposition home or self-care (01) | DRG 137 ==
LOC: N.ED 11:46 → N.EDINP 11:46 → N.2W 15:01 → SUATTDRO 12-20 09:56
PROVIDERS: ADMIT Internal Medicine; ATTEND Internal Medicine

== ENCOUNTER 2020-02-14 10:56 | Inpatient (IN) ==
[2020-02-14 11:28] LABS: Basophils % 0.4 % (0.0-0.8); Eosinophils % 0.2 % (0.00-10.9); Hematocrit 51.8 VOL% (42.0-52.0); Hemoglobin 17.5 GM/DL (14.0-18.0); Immature Granulocytes % 0.4 %; Immature Granulocytes Absolute 0.02 #; Lymphocytes # 0.6 10*3/uL (1.4-4.0); Lymphocytes % 10.8 % (21.2-54.2); Mean Corpuscular HGB Conc 33.8 GM/DL (32-36); Mean Corpuscular Volume 100.4 FL (87-102); Mean Platelet Volume 10.5 FL (9.6-12.0); Monocytes % 11.2 % (1.7-12.7); Platelet Count 247 T/CUMM (130-400); Red Blood Count 5.16 MC/CUMM (3.8-5.5); Red Cell Distribution Width 17.3 % (9.3-17.3); White Blood Count 5.5 T/CUMM (4-12)
[2020-02-14 12:20] LABS: Apearance,Urine CLEAR (Clear); Bilirubin,Urine Negative (Negative); Blood, Urine Negative (Negative); Glucose,Urine (UA) Negative (Negative); Ketones,Urine 20 mg/dL (Negative); Nitrite,Urine Negative (Negative); Protein,Urine Negative; RBC,Urine 3 /HPF (0-4); Squamous Epithelial Cell,Urine Occasional /HPF (0-10); Urine Color Yellow (Yellow); Urine Specific Gravity 1.014 (1.001-1.035); WBC,Urine 3 /HPF (0-6)
[2020-02-14 12:26] LABS: Barbiturates Screen,Urine Negative (Negative); Benzodiazepines Screen,Urine Negative (Negative); Cannabinoid Screen,Urine Negative (Negative); Opiate Screen,Urine Negative (Negative); Phencyclidine Screen,Urine Negative (Negative)
[2020-02-14 12:28] LABS: Alanine Aminotransferase 30 U/L (16-61); Albumin 3.7 G/DL (3.4-5.0); Alkaline Phosphatase 70 U/L (45-117); Aspartate Amino Transferase 31 U/L (0-37); Blood Urea Nitrogen 9 MG/DL (7-18); Calcium 9.5 MG/DL (8.5-10.1); Estimated Glom Filtration Rate 115 ML/MIN; Glucose 76 MG/DL (74-106); Osmolality,Calculated 265.2 MOS/KG (273-304); Total Protein 7.8 G/DL (6.4-8.3); Troponin I < 0.015 NG/ML (0.00-0.045)
[2020-02-14] MEDS ORDERED: ONDANSETRON 4 MG/2 ML VIAL IV PRN ×2 (13:55→15:42)
[2020-02-14] MEDS ORDERED: ACETAMINOPHEN 325 MG TABLET PO PRN (13:55)
[2020-02-14] MEDS ORDERED: PROMETHAZINE 25 MG/1 ML VIAL IM PRN (13:55)
[2020-02-14] MEDS ORDERED: ALBUTEROL 2.5 MG/3 ML NEB RESP TX PRN (13:58)
[2020-02-14] MEDS ORDERED: SODIUM CHLORIDE 0.9% 100 ML IV ONE (14:41)
[2020-02-14] MEDS ORDERED: PIPERACILLIN/TAZOBACTAM 3,375 MG VIAL IV ONE (14:41)
[2020-02-14] MEDS: ENOXAPARIN 40 MG/0.4 ML SYRINGE SUBCUT SCH (14:49)
[2020-02-14] MEDS: hydrALAZINE 20 MG/1 ML VIAL IV PRN (14:49)
[2020-02-14] MEDS: PIPERACILLIN/TAZOBACTAM 3,375 MG in SODIUM CHLORIDE 0.9% 100 ML IV SCH ×2 (14:49→22:00)
[2020-02-14] MEDS ORDERED: chlorproMAZINE INJ 50 MG in SODIUM CHLORIDE 0.9% 100 ML IV PRN (15:42)
[2020-02-14] MEDS ORDERED: TEMAZEPAM 7.5 MG CAPSULE PO PRN (15:42)
[2020-02-14] MEDS ORDERED: chlorproMAZINE INJ 25 MG in SODIUM CHLORIDE 0.9% 100 ML IV PRN (15:42)
[2020-02-14] MEDS ORDERED: MYLANTA/LIDO VISC 2:1 300 ML BOTTLE SWISH/SWAL PRN (15:42)
[2020-02-14] MEDS ORDERED: ALUMINUM/MAGNES/SIMETH MAX STR 30 ML UDCUP PO PRN (15:42)
[2020-02-14] MEDS ORDERED: diphenhydrAMINE CAP 25 MG CAPSULE PO PRN (15:42)
[2020-02-14] MEDS ORDERED: MAGNESIUM HYDROXIDE SUSP 30 ML UDCUP PO PRN (15:42)
[2020-02-14] MEDS ORDERED: LACTULOSE 20 GM/30 ML UDCUP PO PRN (15:42)
[2020-02-14] MEDS ORDERED: guaiFENesin 200 MG/10 ML UDCUP PO PRN (15:42)
[2020-02-14] MEDS ORDERED: LOPERAMIDE 2 MG CAPSULE PO PRN (15:42)
[2020-02-14] MEDS ORDERED: BENZTROPINE 2 MG/2 ML AMP IV PRN (15:42)
[2020-02-14] MEDS ORDERED: ALPRAZolam 0.25 MG TABLET PO PRN (15:42)
[2020-02-14] MEDS ORDERED: traMADol 50 MG TABLET PO PRN (15:42)
[2020-02-14] MEDS ORDERED: PROMETHAZINE INJ 25 MG in SODIUM CHLORIDE 0.9% 50 ML IV PRN (15:42)
[2020-02-14] MEDS: SODIUM CHLORIDE 0.9% 1,000 ML IV SCH (15:51)
[2020-02-14] MEDS: ALBUTEROL/IPRATROPIUM 3 ML NEB RESP TX SCH (19:48)
[2020-02-14] MEDS: CYCLOBENZAPRINE 10 MG TABLET PO SCH (20:33)
[2020-02-14] MEDS: METOPROLOL TARTRATE 25 MG TABLET PO SCH (20:33)
[2020-02-14] MEDS: BUDESONIDE/FORMOTEROL 160-4.5 INHALER 6 GM INH SCH (20:34)
[2020-02-15] MEDS: ALBUTEROL/IPRATROPIUM 3 ML NEB RESP TX SCH ×4 (00:01→20:58)
[2020-02-15] MEDS: SODIUM CHLORIDE 0.9% 1,000 ML IV SCH ×3 (00:20→17:11)
[2020-02-15] MEDS: PIPERACILLIN/TAZOBACTAM 3,375 MG in SODIUM CHLORIDE 0.9% 100 ML IV SCH ×3 (05:02→22:39)
[2020-02-15 06:01] LABS: Basophils % 0.2 % (0.0-0.8); Eosinophils % 0.7 % (0.00-10.9); Hematocrit 48.5 VOL% (42.0-52.0); Hemoglobin 16.5 GM/DL (14.0-18.0); Immature Granulocytes % 0.4 %; Immature Granulocytes Absolute 0.02 #; Lymphocytes # 0.9 10*3/uL (1.4-4.0); Mean Corpuscular Volume 99.4 FL (87-102); Mean Platelet Volume 10.4 FL (9.6-12.0); Monocytes % 13.7 % (1.7-12.7); Platelet Count 217 T/CUMM (130-400); Red Blood Count 4.88 MC/CUMM (3.8-5.5); Red Cell Distribution Width 16.8 % (9.3-17.3); White Blood Count 5.4 T/CUMM (4-12)
[2020-02-15 06:32] LABS: Albumin 3.3 G/DL (3.4-5.0); Bilirubin,Total 2.6 MG/DL (0.2-1.0); Calcium 9.4 MG/DL (8.5-10.1); Osmolality,Calculated 263.5 MOS/KG (273-304)
[2020-02-15] MEDS ORDERED: POTASSIUM CHLORIDE 20 MEQ TABLET PO ONE (10:12)
[2020-02-15 10:41] LABS: PT Patient Result 11.1 SECS (9.6-12.2)
[2020-02-15] MEDS: METOPROLOL TARTRATE 25 MG TABLET PO SCH ×3 (11:34→20:37)
[2020-02-15] MEDS: VERAPAMIL SR 180 MG TABLET PO SCH (11:34)
[2020-02-15] MEDS: PANTOPRAZOLE 40 MG TABLET PO SCH (11:34)
[2020-02-15] MEDS: hydroCHLOROthiazide 12.5 MG CAPSULE PO SCH (11:34)
[2020-02-15] MEDS: BUDESONIDE/FORMOTEROL 160-4.5 INHALER 6 GM INH SCH ×2 (11:35→22:39)
[2020-02-15] MEDS: ENOXAPARIN 40 MG/0.4 ML SYRINGE SUBCUT SCH (16:58)
[2020-02-15] MEDS: BISACODYL 5 MG TABLET PO PRN (17:08)
[2020-02-15] MEDS: hydrALAZINE 20 MG/1 ML VIAL IV PRN (17:11)
[2020-02-15] MEDS: CYCLOBENZAPRINE 10 MG TABLET PO SCH (20:37)
[2020-02-16] MEDS: ALBUTEROL/IPRATROPIUM 3 ML NEB RESP TX SCH ×4 (00:34→19:40)
[2020-02-16] MEDS: PIPERACILLIN/TAZOBACTAM 3,375 MG in SODIUM CHLORIDE 0.9% 100 ML IV SCH ×3 (05:03→23:18)
[2020-02-16] MEDS: SODIUM CHLORIDE 0.9% 1,000 ML IV SCH ×4 (05:04→23:18)
[2020-02-16 05:09] LABS: Calcium 9.2 MG/DL (8.5-10.1); Osmolality,Calculated 270.1 MOS/KG (273-304)
[2020-02-16] MEDS: BISACODYL 5 MG TABLET PO PRN (08:06)
[2020-02-16] MEDS: VERAPAMIL SR 180 MG TABLET PO SCH (08:07)
[2020-02-16] MEDS: hydroCHLOROthiazide 12.5 MG CAPSULE PO SCH (08:07)
[2020-02-16] MEDS: METOPROLOL TARTRATE 25 MG TABLET PO SCH ×2 (08:08→20:51)
[2020-02-16] MEDS: PANTOPRAZOLE 40 MG TABLET PO SCH (08:08)
[2020-02-16] MEDS ORDERED: MAGNESIUM SULF RIDER 4 GM in PREMIX 1 EACH IV ONE (08:30)
[2020-02-16] MEDS: BUDESONIDE/FORMOTEROL 160-4.5 INHALER 6 GM INH SCH ×2 (10:46→23:17)
[2020-02-16] MEDS: hydrALAZINE 20 MG/1 ML VIAL IV PRN (11:43)
[2020-02-16] MEDS: ENOXAPARIN 40 MG/0.4 ML SYRINGE SUBCUT SCH (15:29)
[2020-02-16] MEDS: CYCLOBENZAPRINE 10 MG TABLET PO SCH (20:51)
[2020-02-17] MEDS: ALBUTEROL/IPRATROPIUM 3 ML NEB RESP TX SCH ×4 (00:39→19:44)
[2020-02-17] MEDS ORDERED: HALOPERIDOL 5 MG/ML AMP ONE (02:59)
[2020-02-17] MEDS ORDERED: HALOPERIDOL 5 MG/ML AMP IM ONE (03:02)
[2020-02-17 04:29] LABS: Basophils % 0.1 % (0.0-0.8); Eosinophils # 0.1 10*3/uL (0.0-0.87); Eosinophils % 0.6 % (0.00-10.9); Hemoglobin 15.9 GM/DL (14.0-18.0); Immature Granulocytes % 0.3 %; Immature Granulocytes Absolute 0.02 #; Lymphocytes # 0.8 10*3/uL (1.4-4.0); Lymphocytes % 10.5 % (21.2-54.2); Mean Corpuscular HGB Conc 33.1 GM/DL (32-36); Mean Corpuscular Volume 102.6 FL (87-102); Mean Platelet Volume 10.2 FL (9.6-12.0); Monocytes % 9.6 % (1.7-12.7); Neutrophils % 78.9 % (38.7-73.9); Platelet Count 187 T/CUMM (130-400); Red Blood Count 4.68 MC/CUMM (3.8-5.5); Red Cell Distribution Width 16.8 % (9.3-17.3); White Blood Count 7.9 T/CUMM (4-12)
[2020-02-17 04:57] LABS: Calcium 9.5 MG/DL (8.5-10.1); Osmolality,Calculated 260.7 MOS/KG (273-304)
[2020-02-17] MEDS: PIPERACILLIN/TAZOBACTAM 3,375 MG in SODIUM CHLORIDE 0.9% 100 ML IV SCH ×3 (06:26→21:01)
[2020-02-17] MEDS ORDERED: MEPERIDINE 50 MG/1 ML VIAL IM ONE (07:00)
[2020-02-17] MEDS ORDERED: PROMETHAZINE 25 MG/1 ML VIAL IM ONE (07:00)
[2020-02-17] MEDS ORDERED: LIDOCAINE 2% VISCOUS 100 ML BOTTLE SWISH/SPIT ONE (07:30)
[2020-02-17] MEDS ORDERED: MIDAZOLAM 2 MG/2 ML VIAL IV ONE (07:30)
[2020-02-17] MEDS ORDERED: LIDOCAINE 1% 20 ML VIAL MISC INJ ONE (07:30)
[2020-02-17] MEDS ORDERED: LIDOCAINE 2% 20 ML VIAL RESP TX ONE (07:30)
[2020-02-17] MEDS ORDERED: MIDAZOLAM 2 MG/2 ML VIAL ONE (07:36)
[2020-02-17] MEDS: SODIUM CHLORIDE 0.9% 1,000 ML IV SCH ×2 (07:54→15:33)
[2020-02-17] MEDS ORDERED: TUBERCULIN SKIN TEST 0.1 ML SYRINGE INTRADERM ONE (07:55)
[2020-02-17] MEDS: hydroCHLOROthiazide 12.5 MG CAPSULE PO SCH (09:29)
[2020-02-17] MEDS: PANTOPRAZOLE 40 MG TABLET PO SCH (09:29)
[2020-02-17] MEDS: VERAPAMIL SR 180 MG TABLET PO SCH (09:29)
[2020-02-17] MEDS: METOPROLOL TARTRATE 25 MG TABLET PO SCH ×2 (09:29→20:54)
[2020-02-17] MEDS: BUDESONIDE/FORMOTEROL 160-4.5 INHALER 6 GM INH SCH ×2 (09:32→20:55)
[2020-02-17] MEDS: ENOXAPARIN 40 MG/0.4 ML SYRINGE SUBCUT SCH (15:34)
[2020-02-17] MEDS: CYCLOBENZAPRINE 10 MG TABLET PO SCH (20:54)
[2020-02-18] MEDS: ALBUTEROL/IPRATROPIUM 3 ML NEB RESP TX SCH ×4 (00:40→19:39)
[2020-02-18 05:31] LABS: Basophils % 0.2 % (0.0-0.8); Eosinophils # 0.1 10*3/uL (0.0-0.87); Eosinophils % 0.8 % (0.00-10.9); Hematocrit 46.6 VOL% (42.0-52.0); Hemoglobin 16.3 GM/DL (14.0-18.0); Immature Granulocytes % 0.2 %; Immature Granulocytes Absolute 0.02 #; Lymphocytes # 0.9 10*3/uL (1.4-4.0); Lymphocytes % 9.9 % (21.2-54.2); Mean Corpuscular Volume 98.9 FL (87-102); Monocytes % 14.6 % (1.7-12.7); Neutrophils % 74.3 % (38.7-73.9); Platelet Count 197 T/CUMM (130-400); Red Blood Count 4.71 MC/CUMM (3.8-5.5); Red Cell Distribution Width 16.3 % (9.3-17.3); White Blood Count 8.6 T/CUMM (4-12)
[2020-02-18 05:52] LABS: Calcium 9.9 MG/DL (8.5-10.1); Osmolality,Calculated 261.7 MOS/KG (273-304)
[2020-02-18] MEDS: PIPERACILLIN/TAZOBACTAM 3,375 MG in SODIUM CHLORIDE 0.9% 100 ML IV SCH ×3 (05:56→22:29)
[2020-02-18] MEDS: hydroCHLOROthiazide 12.5 MG CAPSULE PO SCH (09:05)
[2020-02-18] MEDS: METOPROLOL TARTRATE 25 MG TABLET PO SCH ×2 (09:05→20:14)
[2020-02-18] MEDS: PANTOPRAZOLE 40 MG TABLET PO SCH (09:05)
[2020-02-18] MEDS: VERAPAMIL SR 180 MG TABLET PO SCH (09:05)
[2020-02-18] MEDS: BUDESONIDE/FORMOTEROL 160-4.5 INHALER 6 GM INH SCH ×2 (09:06→21:34)
[2020-02-18] MEDS: SODIUM CHLORIDE 0.9% 1,000 ML IV SCH ×2 (09:58→16:06)
[2020-02-18] MEDS: HALOPERIDOL 5 MG/ML AMP IM PRN (09:58)
[2020-02-18] MEDS ORDERED: MAGNESIUM SULF RIDER 2 GM in PREMIX 1 EACH IV ONE ×3 (10:28→18:00)
[2020-02-18] MEDS ORDERED: LORazepam 2 MG/1 ML VIAL IV PRN (11:27)
[2020-02-18] MEDS ORDERED: LORazepam 2 MG/1 ML VIAL IV ONE (12:13)
[2020-02-18] MEDS: chlordiazePOXIDE 25 MG CAPSULE PO SCH ×2 (12:33→17:55)
[2020-02-18] MEDS: LORazepam 2 MG/1 ML VIAL IV SCH ×3 (13:23→21:29)
[2020-02-18] MEDS: ENOXAPARIN 40 MG/0.4 ML SYRINGE SUBCUT SCH (14:19)
[2020-02-18] MEDS: CYCLOBENZAPRINE 10 MG TABLET PO SCH (20:14)
[2020-02-19] MEDS: LORazepam 2 MG/1 ML VIAL IV SCH ×3 (01:33→08:50)
[2020-02-19] MEDS: chlordiazePOXIDE 25 MG CAPSULE PO SCH ×4 (02:11→21:05)
[2020-02-19 05:31] LABS: Basophils % 0.3 % (0.0-0.8); Eosinophils # 0.2 10*3/uL (0.0-0.87); Eosinophils % 2.5 % (0.00-10.9); Hematocrit 48.7 VOL% (42.0-52.0); Hemoglobin 16.7 GM/DL (14.0-18.0); Immature Granulocytes % 0.1 %; Immature Granulocytes Absolute 0.01 #; Lymphocytes # 0.9 10*3/uL (1.4-4.0); Lymphocytes % 13.2 % (21.2-54.2); Mean Corpuscular HGB Conc 34.3 GM/DL (32-36); Mean Platelet Volume 10.9 FL (9.6-12.0); Monocytes % 17.2 % (1.7-12.7); Neutrophils % 66.7 % (38.7-73.9); Platelet Count 198 T/CUMM (130-400); Red Blood Count 4.82 MC/CUMM (3.8-5.5); Red Cell Distribution Width 16.2 % (9.3-17.3); White Blood Count 6.7 T/CUMM (4-12)
[2020-02-19 05:45] LABS: Calcium 9.9 MG/DL (8.5-10.1); Osmolality,Calculated 258.8 MOS/KG (273-304)
[2020-02-19] MEDS: SODIUM CHLORIDE 0.9% 1,000 ML IV SCH ×2 (07:17)
[2020-02-19] MEDS: PIPERACILLIN/TAZOBACTAM 3,375 MG in SODIUM CHLORIDE 0.9% 100 ML IV SCH ×3 (07:18→21:05)
[2020-02-19] MEDS: ALBUTEROL/IPRATROPIUM 3 ML NEB RESP TX SCH ×4 (07:20→19:25)
[2020-02-19 08:39] LABS: Eosinophils 4 % (0-10); Lymphocytes 15 % (20-55); Segmented Neutrophils 69 % (50-85); Total Cells Counted 100
[2020-02-19 08:40] LABS: Hypochromasia Slight; Macrocytosis 1+; Platelet Estimate Adequate
[2020-02-19] MEDS: PROPRANOLOL 20 MG TABLET PO SCH ×2 (08:50→21:05)
[2020-02-19] MEDS: VERAPAMIL SR 180 MG TABLET PO SCH (08:51)
[2020-02-19] MEDS: PANTOPRAZOLE 40 MG TABLET PO SCH (08:51)
[2020-02-19] MEDS: hydroCHLOROthiazide 12.5 MG CAPSULE PO SCH (08:51)
[2020-02-19] MEDS: BUDESONIDE/FORMOTEROL 160-4.5 INHALER 6 GM INH SCH ×2 (08:52→21:06)
[2020-02-19] MEDS ORDERED: LORazepam 2 MG/1 ML VIAL IV SCH (10:30)
[2020-02-19] MEDS: ENOXAPARIN 40 MG/0.4 ML SYRINGE SUBCUT SCH (13:07)
[2020-02-19] MEDS: LORazepam 2 MG/1 ML VIAL IV PRN (13:56)
[2020-02-19] MEDS: HALOPERIDOL 5 MG/ML AMP IM PRN (13:56)
[2020-02-19] MEDS: CYCLOBENZAPRINE 10 MG TABLET PO SCH (21:05)
[2020-02-20] MEDS: ALBUTEROL/IPRATROPIUM 3 ML NEB RESP TX SCH ×4 (00:30→19:52)
[2020-02-20] MEDS: LORazepam 2 MG/1 ML VIAL IV PRN ×2 (00:50→03:31)
[2020-02-20 05:16] LABS: Albumin 3.3 G/DL (3.4-5.0); Bilirubin,Total 0.8 MG/DL (0.2-1.0); Calcium 9.5 MG/DL (8.5-10.1); Osmolality,Calculated 265.4 MOS/KG (273-304); Total Protein 7.6 G/DL (6.4-8.3)
[2020-02-20 06:47] LABS: Basophils % 0.4 % (0.0-0.8); Eosinophils # 0.1 10*3/uL (0.0-0.87); Eosinophils % 1.6 % (0.00-10.9); Hematocrit 47.9 VOL% (42.0-52.0); Hemoglobin 16.1 GM/DL (14.0-18.0); Immature Granulocytes % 0.4 %; Immature Granulocytes Absolute 0.03 #; Lymphocytes # 0.8 10*3/uL (1.4-4.0); Mean Corpuscular HGB Conc 33.6 GM/DL (32-36); Mean Corpuscular Volume 102.6 FL (87-102); Mean Platelet Volume 10.9 FL (9.6-12.0); Monocytes % 17.5 % (1.7-12.7); Neutrophils % 68.1 % (38.7-73.9); Platelet Count 249 T/CUMM (130-400); Red Blood Count 4.67 MC/CUMM (3.8-5.5); Red Cell Distribution Width 16.5 % (9.3-17.3); White Blood Count 6.9 T/CUMM (4-12)
[2020-02-20] MEDS: chlordiazePOXIDE 25 MG CAPSULE PO SCH ×3 (06:59→20:11)
[2020-02-20 07:11] LABS: Eosinophils 2 % (0-10); Lymphocytes 17 % (20-55); Macrocytosis Slight; Platelet Estimate Adequate; Segmented Neutrophils 67 % (50-85); Total Cells Counted 100
[2020-02-20] MEDS: PANTOPRAZOLE 40 MG TABLET PO SCH (12:00)
[2020-02-20] MEDS: AMOXICILLIN/CLAV 875 MG TABLET PO SCH ×2 (12:01→20:11)
[2020-02-20] MEDS: MULTIVITAMIN (BEROCCA) TABLET PO SCH (12:01)
[2020-02-20] MEDS: PROPRANOLOL 20 MG TABLET PO SCH ×2 (12:01→20:11)
[2020-02-20] MEDS: THIAMINE 100 MG TABLET PO SCH (12:01)
[2020-02-20] MEDS: FOLIC ACID 1 MG TABLET PO SCH (12:01)
[2020-02-20] MEDS: BUDESONIDE/FORMOTEROL 160-4.5 INHALER 6 GM INH SCH ×2 (12:01→20:14)
[2020-02-20] MEDS: VERAPAMIL SR 180 MG TABLET PO SCH (12:03)
[2020-02-20] MEDS: hydroCHLOROthiazide 12.5 MG CAPSULE PO SCH (12:05)
[2020-02-20] MEDS: ENOXAPARIN 40 MG/0.4 ML SYRINGE SUBCUT SCH (15:18)
[2020-02-20] MEDS: CYCLOBENZAPRINE 10 MG TABLET PO SCH (20:11)
[2020-02-21] MEDS: ALBUTEROL/IPRATROPIUM 3 ML NEB RESP TX SCH ×4 (00:25→19:20)
[2020-02-21] MEDS: chlordiazePOXIDE 25 MG CAPSULE PO SCH (03:38)
[2020-02-21 06:10] LABS: Basophils % 0.5 % (0.0-0.8); Eosinophils # 0.1 10*3/uL (0.0-0.87); Eosinophils % 1.9 % (0.00-10.9); Hematocrit 42.5 VOL% (42.0-52.0); Hemoglobin 14.6 GM/DL (14.0-18.0); Immature Granulocytes % 0.2 %; Immature Granulocytes Absolute 0.01 #; Lymphocytes % 14.7 % (21.2-54.2); Mean Corpuscular HGB Conc 34.4 GM/DL (32-36); Mean Corpuscular Volume 101.2 FL (87-102); Mean Platelet Volume 10.1 FL (9.6-12.0); Monocytes % 20.6 % (1.7-12.7); Neutrophils % 62.1 % (38.7-73.9); Platelet Count 257 T/CUMM (130-400); Red Cell Distribution Width 15.9 % (9.3-17.3); White Blood Count 6.5 T/CUMM (4-12)
[2020-02-21 06:37] LABS: Calcium 9.5 MG/DL (8.5-10.1); Osmolality,Calculated 269.2 MOS/KG (273-304)
[2020-02-21 06:44] LABS: Calcium 9.3 MG/DL (8.5-10.1); Osmolality,Calculated 269.2 MOS/KG (273-304)
[2020-02-21 06:56] LABS: Eosinophils 2 % (0-10); Lymphocytes 17 % (20-55); Segmented Neutrophils 60 % (50-85); Total Cells Counted 100
[2020-02-21 06:57] LABS: Hypochromasia Slight; Macrocytosis Slight; Platelet Estimate Normal
[2020-02-21] MEDS: PANTOPRAZOLE 40 MG TABLET PO SCH (08:24)
[2020-02-21] MEDS: FOLIC ACID 1 MG TABLET PO SCH (08:24)
[2020-02-21] MEDS: THIAMINE 100 MG TABLET PO SCH (08:24)
[2020-02-21] MEDS: VERAPAMIL SR 180 MG TABLET PO SCH (08:25)
[2020-02-21] MEDS: MULTIVITAMIN (BEROCCA) TABLET PO SCH (08:25)
[2020-02-21] MEDS: AMOXICILLIN/CLAV 875 MG TABLET PO SCH ×2 (08:27→20:14)
[2020-02-21] MEDS: PROPRANOLOL 20 MG TABLET PO SCH ×2 (08:27→20:14)
[2020-02-21] MEDS: BUDESONIDE/FORMOTEROL 160-4.5 INHALER 6 GM INH SCH ×2 (08:27→20:15)
[2020-02-21] MEDS: ENOXAPARIN 40 MG/0.4 ML SYRINGE SUBCUT SCH (14:09)
[2020-02-21] MEDS ORDERED: CYCLOBENZAPRINE 10 MG TABLET PO PRN (15:29)
[2020-02-22] MEDS: ALBUTEROL/IPRATROPIUM 3 ML NEB RESP TX SCH ×3 (00:40→12:35)
[2020-02-22 04:53] LABS: Basophils % 0.4 % (0.0-0.8); Eosinophils # 0.1 10*3/uL (0.0-0.87); Eosinophils % 1.9 % (0.00-10.9); Hematocrit 44.5 VOL% (42.0-52.0); Hemoglobin 14.6 GM/DL (14.0-18.0); Immature Granulocytes % 0.2 %; Immature Granulocytes Absolute 0.01 #; Lymphocytes # 0.8 10*3/uL (1.4-4.0); Lymphocytes % 16.9 % (21.2-54.2); Mean Corpuscular HGB Conc 32.8 GM/DL (32-36); Mean Corpuscular Volume 103.7 FL (87-102); Mean Platelet Volume 10.3 FL (9.6-12.0); Monocytes % 18.6 % (1.7-12.7); Platelet Count 279 T/CUMM (130-400); Red Blood Count 4.29 MC/CUMM (3.8-5.5); Red Cell Distribution Width 15.9 % (9.3-17.3); White Blood Count 4.8 T/CUMM (4-12)
[2020-02-22 05:14] LABS: Lymphocytes 22 % (20-55); Platelet Estimate Adequate; Segmented Neutrophils 65 % (50-85); Total Cells Counted 100
[2020-02-22 05:15] LABS: Hypochromasia 1+; Macrocytosis Slight
[2020-02-22 05:18] LABS: Calcium 9.4 MG/DL (8.5-10.1)
[2020-02-22] MEDS: VERAPAMIL SR 180 MG TABLET PO SCH (08:41)
[2020-02-22] MEDS: FOLIC ACID 1 MG TABLET PO SCH (08:41)
[2020-02-22] MEDS: PANTOPRAZOLE 40 MG TABLET PO SCH (08:41)
[2020-02-22] MEDS: THIAMINE 100 MG TABLET PO SCH (08:41)
[2020-02-22] MEDS: MULTIVITAMIN (BEROCCA) TABLET PO SCH (08:41)
[2020-02-22] MEDS: BUDESONIDE/FORMOTEROL 160-4.5 INHALER 6 GM INH SCH (08:42)
[2020-02-22] MEDS: AMOXICILLIN/CLAV 875 MG TABLET PO SCH (08:42)
[2020-02-22] MEDS: PROPRANOLOL 20 MG TABLET PO SCH (08:42)
[2020-02-22] MEDS ORDERED: CYANOCOBALAMIN 1000 MCG/1 ML VIAL IM ONE (09:15)
[2020-02-22] MEDS ORDERED: SODIUM CHLORIDE 0.9% IV ONE (09:16)
[2020-02-22] MEDS ORDERED: DEXAMETHASONE INJ 10 MG in SODIUM CHLORIDE 0.9% 50 ML IV ONE ×2 (09:16→09:30)
[2020-02-22] MEDS ORDERED: PEMETREXED IV ONE (09:16)
[2020-02-22] MEDS ORDERED: CARBOplatin 300 MG in SODIUM CHLORIDE 0.9% 250 ML IV ONE (09:17)
[2020-02-22] MEDS ORDERED: GRANISETRON 1 MG/1 ML VIAL IV SCH (09:30)
[2020-02-22 12:09] VITALS: BP 130/80
== END 2020-02-22 14:39 | disposition home health service (06) | DRG 136 ==
LOC: N.EDINP 10:56 → N.ED 10:56 → N.EDINP 15:23 → N.4E 15:27 → SUATTDRO 02-15 13:17 → N.4E 02-18 09:03
PROVIDERS: ADMIT Internal Medicine; ATTEND Family Medicine
PROC: BRONCHB (2020-02-17 07:35)

== ENCOUNTER 2020-02-26 21:51 | Observation (INO) ==
[2020-02-26 22:44] LABS: Basophils % 0.7 % (0.0-0.8); Eosinophils % 0.7 % (0.00-10.9); Hematocrit 44.4 VOL% (42.0-52.0); Hemoglobin 14.7 GM/DL (14.0-18.0); Immature Granulocytes Absolute 0.04 #; Lymphocytes # 0.6 10*3/uL (1.4-4.0); Lymphocytes % 14.6 % (21.2-54.2); Mean Corpuscular HGB Conc 33.1 GM/DL (32-36); Mean Corpuscular Volume 101.6 FL (87-102); Mean Platelet Volume 10.1 FL (9.6-12.0); Monocytes % 4.5 % (1.7-12.7); Neutrophils % 78.5 % (38.7-73.9); Platelet Count 323 T/CUMM (130-400); Red Blood Count 4.37 MC/CUMM (3.8-5.5); Red Cell Distribution Width 15.4 % (9.3-17.3); White Blood Count 4.2 T/CUMM (4-12)
[2020-02-26 23:12] LABS: Albumin 3.1 G/DL (3.4-5.0); Bilirubin,Total 0.4 MG/DL (0.2-1.0); Calcium 9.3 MG/DL (8.5-10.1); Osmolality,Calculated 268.2 MOS/KG (273-304); Total Protein 7.3 G/DL (6.4-8.3)
[2020-02-27] MEDS ORDERED: GLUCAGON 1 MG VIAL IM PRN (00:46)
[2020-02-27] MEDS ORDERED: DEXTROSE 50% 25 GM/50 ML SYRINGE IV PRN (00:46)
[2020-02-27] MEDS ORDERED: MORPHINE 4 MG/1 ML VIAL IV PRN (00:46)
[2020-02-27] MEDS ORDERED: ONDANSETRON 4 MG/2 ML VIAL IV PRN (00:46)
[2020-02-27 01:39] LABS: INR 0.9
[2020-02-27] MEDS: AZITHROMYCIN 250 MG TABLET PO SCH (01:43)
[2020-02-27] MEDS: ENOXAPARIN 40 MG/0.4 ML SYRINGE SUBCUT SCH (01:45)
[2020-02-27] MEDS: cefTRIAXone 2,000 MG in SYRINGE 1 EACH IV SCH (01:46)
[2020-02-27] MEDS ORDERED: INFLUENZA VIRUS VACCINE 0.5 ML SYRINGE IM ONE (02:02)
[2020-02-27 02:16] LABS: Eosinophils 2 % (0-10); Lymphocytes 10 % (20-55); Segmented Neutrophils 87 % (50-85); Total Cells Counted 100
[2020-02-27 02:17] LABS: Anisocytosis 1+; Platelet Estimate Normal
[2020-02-27] MEDS: ALBUTEROL/IPRATROPIUM 3 ML NEB RESP TX SCH ×4 (02:21→19:46)
[2020-02-27 05:14] LABS: Basophils % 0.5 % (0.0-0.8); Eosinophils % 0.8 % (0.00-10.9); Hematocrit 43.7 VOL% (42.0-52.0); Hemoglobin 14.7 GM/DL (14.0-18.0); Immature Granulocytes Absolute 0.04 #; Lymphocytes # 0.5 10*3/uL (1.4-4.0); Lymphocytes % 11.7 % (21.2-54.2); Mean Corpuscular HGB Conc 33.6 GM/DL (32-36); Mean Corpuscular Volume 100.7 FL (87-102); Mean Platelet Volume 10.1 FL (9.6-12.0); Monocytes % 4.3 % (1.7-12.7); Neutrophils % 81.7 % (38.7-73.9); Platelet Count 307 T/CUMM (130-400); Red Blood Count 4.34 MC/CUMM (3.8-5.5); Red Cell Distribution Width 15.3 % (9.3-17.3); White Blood Count 3.9 T/CUMM (4-12)
[2020-02-27 05:33] LABS: Calcium 8.9 MG/DL (8.5-10.1)
[2020-02-27 05:36] LABS: INR 0.9; Partial Thromboplastin Time 33.4 SECS (20.8-36.0)
[2020-02-27 05:38] LABS: Hypochromasia 1+; Lymphocytes 13 % (20-55); Platelet Estimate Adequate; Segmented Neutrophils 86 % (50-85); Total Cells Counted 100
[2020-02-27] MEDS: METOPROLOL TARTRATE 25 MG TABLET PO SCH ×2 (08:56→21:22)
[2020-02-27] MEDS: POTASSIUM CHLORIDE 20 MEQ TABLET PO SCH (08:56)
[2020-02-27] MEDS: PANTOPRAZOLE 40 MG TABLET PO SCH (08:56)
[2020-02-27] MEDS: FUROSEMIDE 40 MG/4 ML VIAL IV SCH ×2 (08:56→17:22)
[2020-02-27] MEDS: BUDESONIDE/FORMOTEROL 160-4.5 INHALER 6 GM INH SCH ×2 (09:05→21:27)
[2020-02-27] MEDS: chlordiazePOXIDE 25 MG CAPSULE PO SCH ×3 (13:51→21:22)
[2020-02-27] MEDS: FOLIC ACID 1 MG TABLET PO SCH (17:22)
[2020-02-27 18:03] LABS: Barbiturates Screen,Urine Negative (Negative); Benzodiazepines Screen,Urine Positive (Negative); Cannabinoid Screen,Urine Negative (Negative); Opiate Screen,Urine Negative (Negative); Phencyclidine Screen,Urine Negative (Negative)
[2020-02-28] MEDS: cefTRIAXone 2,000 MG in SYRINGE 1 EACH IV SCH (00:13)
[2020-02-28] MEDS: ALBUTEROL/IPRATROPIUM 3 ML NEB RESP TX SCH ×3 (00:21→13:25)
[2020-02-28 08:00] VITALS: BP 109/71
[2020-02-28] MEDS: METOPROLOL TARTRATE 25 MG TABLET PO SCH (08:34)
[2020-02-28] MEDS: AZITHROMYCIN 250 MG TABLET PO SCH (08:34)
[2020-02-28] MEDS: POTASSIUM CHLORIDE 20 MEQ TABLET PO SCH (08:34)
[2020-02-28] MEDS: FOLIC ACID 1 MG TABLET PO SCH (08:34)
[2020-02-28] MEDS: PANTOPRAZOLE 40 MG TABLET PO SCH (08:34)
[2020-02-28] MEDS: chlordiazePOXIDE 25 MG CAPSULE PO SCH (08:34)
[2020-02-28] MEDS: ENOXAPARIN 40 MG/0.4 ML SYRINGE SUBCUT SCH (08:35)
[2020-02-28] MEDS: FUROSEMIDE 40 MG/4 ML VIAL IV SCH (08:35)
[2020-02-28] MEDS: BUDESONIDE/FORMOTEROL 160-4.5 INHALER 6 GM INH SCH (08:35)
== END 2020-02-28 13:00 | disposition home or self-care (01) ==
LOC: EDUNIT# → EDBD → N.ED 21:51 → N.EDINP 02-27 00:46 → INTOOBSV 02-27 00:46 → N.TELES 02-27 01:19
PROVIDERS: ADMIT Internal Medicine Cardiovascular Disease; ATTEND Internal Medicine Cardiovascular Disease

== ENCOUNTER 2020-04-23 19:30 | Observation (INO) ==
[2020-04-23 20:21] LABS: Basophils % 0.4 % (0.0-0.8); Eosinophils # 0.1 10*3/uL (0.0-0.87); Eosinophils % 0.7 % (0.00-10.9); Hematocrit 52.7 VOL% (42.0-52.0); Hemoglobin 17.8 GM/DL (14.0-18.0); Immature Granulocytes % 0.3 %; Immature Granulocytes Absolute 0.02 #; Lymphocytes # 0.7 10*3/uL (1.4-4.0); Lymphocytes % 9.2 % (21.2-54.2); Mean Corpuscular HGB Conc 33.8 GM/DL (32-36); Mean Corpuscular Volume 96.3 FL (87-102); Mean Platelet Volume 9.6 FL (9.6-12.0); Monocytes % 11.7 % (1.7-12.7); Neutrophils % 77.7 % (38.7-73.9); Platelet Count 298 T/CUMM (130-400); Red Blood Count 5.47 MC/CUMM (3.8-5.5); Red Cell Distribution Width 16.1 % (9.3-17.3); White Blood Count 7.5 T/CUMM (4-12)
[2020-04-23 20:35] LABS: INR 1.1; PT Patient Result 11.9 SECS (9.8-11.9)
[2020-04-23 20:50] LABS: Albumin 3.5 G/DL (3.4-5.0); Bilirubin,Total 1.6 MG/DL (0.2-1.0); Osmolality,Calculated 269.1 MOS/KG (273-304); Total Protein 7.8 G/DL (6.4-8.3)
[2020-04-23] MEDS ORDERED: GLUCAGON 1 MG VIAL IM PRN (23:39)
[2020-04-23] MEDS ORDERED: DEXTROSE 50% 25 GM/50 ML VIAL IV PRN (23:39)
[2020-04-23] MEDS ORDERED: MAGNESIUM SULF RIDER 2 GM in PREMIX 1 EACH IV ONE (23:50)
[2020-04-23] MEDS ORDERED: POTASSIUM CHLORIDE 20 MEQ/15 ML UDCUP PO ONE (23:51)
[2020-04-24] MEDS ORDERED: LORazepam 1 MG TABLET PO PRN (00:47)
[2020-04-24] MEDS: PIPERACILLIN/TAZOBACTAM 3,375 MG in SODIUM CHLORIDE 0.9% 100 ML IV SCH ×4 (01:45→23:58)
[2020-04-24] MEDS: ALBUTEROL 1.25 MG/3 ML NEB RESP TX SCH ×6 (02:47→23:00)
[2020-04-24] MEDS: VANCOMYCIN INJ 1,250 MG in SODIUM CHLORIDE 0.9% 250 ML IV SCH ×2 (05:45→16:50)
[2020-04-24 07:27] LABS: Apearance,Urine CLOUDY (Clear); Bilirubin,Urine Negative (Negative); Blood, Urine Negative (Negative); Glucose,Urine (UA) Negative (Negative); Hyaline Casts,Urine 4 /LPF (0-3); Ketones,Urine Negative (Negative); Mucus,Urine Occasional /LPF (Occasional); Nitrite,Urine Negative (Negative); Protein,Urine Negative; RBC,Urine 5 /HPF (0-4); Squamous Epithelial Cell,Urine Moderate /HPF (0-10); Urine Color Yellow (Yellow); Urine Urobilinogen < 2.0 EU/DL (0.2-1.0); WBC,Urine 2 /HPF (0-6)
[2020-04-24 07:39] LABS: Barbiturates Screen,Urine Negative (Negative); Benzodiazepines Screen,Urine Negative (Negative); Cannabinoid Screen,Urine Negative (Negative); Opiate Screen,Urine Negative (Negative); Phencyclidine Screen,Urine Negative (Negative)
[2020-04-24] MEDS: PANTOPRAZOLE 40 MG TABLET PO SCH (08:05)
[2020-04-24] MEDS ORDERED: ALBUTEROL 2.5 MG/3 ML NEB RESP TX PRN (08:13)
[2020-04-24 08:19] LABS: Basophils % 0.3 % (0.0-0.8); Eosinophils # 0.1 10*3/uL (0.0-0.87); Eosinophils % 0.9 % (0.00-10.9); Hematocrit 54.2 VOL% (42.0-52.0); Hemoglobin 17.9 GM/DL (14.0-18.0); Immature Granulocytes % 0.3 %; Immature Granulocytes Absolute 0.02 #; Lymphocytes # 0.7 10*3/uL (1.4-4.0); Lymphocytes % 10.5 % (21.2-54.2); Mean Corpuscular Volume 98.2 FL (87-102); Mean Platelet Volume 9.3 FL (9.6-12.0); Monocytes % 12.3 % (1.7-12.7); Neutrophils % 75.7 % (38.7-73.9); Platelet Count 269 T/CUMM (130-400); Red Blood Count 5.52 MC/CUMM (3.8-5.5); Red Cell Distribution Width 16.8 % (9.3-17.3); White Blood Count 6.8 T/CUMM (4-12)
[2020-04-24] MEDS: METOPROLOL TARTRATE 25 MG TABLET PO SCH (08:47)
[2020-04-24] MEDS: BUDESONIDE/FORMOTEROL 160-4.5 INHALER 6 GM INH SCH ×2 (08:48→20:47)
[2020-04-24] MEDS: FOLIC ACID 1 MG TABLET PO SCH (09:04)
[2020-04-24] MEDS: VERAPAMIL SR 180 MG TABLET PO SCH (09:04)
[2020-04-24] MEDS ORDERED: CYCLOBENZAPRINE 10 MG TABLET PO SCH (21:00)
[2020-04-25] MEDS: ALBUTEROL 1.25 MG/3 ML NEB RESP TX SCH ×3 (03:15→13:30)
[2020-04-25] MEDS: VANCOMYCIN INJ 1,250 MG in SODIUM CHLORIDE 0.9% 250 ML IV SCH (05:25)
[2020-04-25] MEDS: FOLIC ACID 1 MG TABLET PO SCH (09:26)
[2020-04-25] MEDS: PIPERACILLIN/TAZOBACTAM 3,375 MG in SODIUM CHLORIDE 0.9% 100 ML IV SCH (09:26)
[2020-04-25] MEDS: PANTOPRAZOLE 40 MG TABLET PO SCH (09:26)
[2020-04-25] MEDS: METOPROLOL TARTRATE 25 MG TABLET PO SCH (09:26)
[2020-04-25] MEDS: VERAPAMIL SR 180 MG TABLET PO SCH (10:00)
[2020-04-25] MEDS: BUDESONIDE/FORMOTEROL 160-4.5 INHALER 6 GM INH SCH (10:00)
[2020-04-25 11:34] VITALS: BP 152/96
== END 2020-04-25 14:55 | disposition home health service (06) ==
LOC: EDBD → EDUNIT# → N.EDINP 19:30 → N.ED 19:30 → N.EDINP 04-24 00:25 → N.TELES 04-24 00:55
PROVIDERS: ADMIT Internal Medicine; ATTEND Internal Medicine

== ENCOUNTER 2020-06-16 23:46 | Inpatient (IN) ==
[2020-06-17 01:29] LABS: Basophils % 0.5 % (0.0-0.8); Eosinophils # 0.1 10*3/uL (0.0-0.87); Eosinophils % 1.8 % (0.00-10.9); Hematocrit 54.2 VOL% (42.0-52.0); Immature Granulocytes % 0.2 %; Immature Granulocytes Absolute 0.01 #; Lymphocytes # 0.9 10*3/uL (1.4-4.0); Lymphocytes % 14.2 % (21.2-54.2); Mean Corpuscular HGB Conc 33.2 GM/DL (32-36); Mean Corpuscular Volume 95.8 FL (87-102); Mean Platelet Volume 9.7 FL (9.6-12.0); Monocytes % 17.9 % (1.7-12.7); Neutrophils % 65.4 % (38.7-73.9); Platelet Count 253 T/CUMM (130-400); Red Blood Count 5.66 MC/CUMM (3.8-5.5); Red Cell Distribution Width 17.4 % (9.3-17.3); White Blood Count 6.2 T/CUMM (4-12)
[2020-06-17 01:48] LABS: Albumin 3.4 G/DL (3.4-5.0); Bilirubin,Total 0.4 MG/DL (0.2-1.0); Calcium 8.8 MG/DL (8.5-10.1); Total Protein 7.7 G/DL (6.4-8.3)
[2020-06-17 02:08] LABS: INR 1.1; PT Patient Result 11.5 SECS (9.8-11.9)
[2020-06-17] MEDS ORDERED: POTASSIUM CHLORIDE 20 MEQ/15 ML UDCUP PO ONE (02:25)
[2020-06-17] MEDS ORDERED: ACETAMINOPHEN 325 MG TABLET PO PRN (05:10)
[2020-06-17] MEDS ORDERED: ONDANSETRON 4 MG/2 ML VIAL IV PRN (05:10)
[2020-06-17] MEDS ORDERED: DOCUSATE SODIUM 100 MG CAPSULE PO PRN (05:10)
[2020-06-17] MEDS ORDERED: MAGNESIUM SULF RIDER 2 GM in PREMIX 1 EACH IV PRN (05:10)
[2020-06-17] MEDS ORDERED: MAGNESIUM SULF RIDER 4 GM in PREMIX 1 EACH IV PRN (05:10)
[2020-06-17] MEDS ORDERED: ONDANSETRON ODT 4 MG TABLET PO PRN (05:15)
[2020-06-17] MEDS ORDERED: SODIUM CHLORIDE 0.9% 1,000 ML IV SCH (05:30)
[2020-06-17 05:58] LABS: Anisocytosis 2+; Band Neutrophils 5 % (0-10); Eosinophils 1 % (0-10); Hypochromasia 2+; Lymphocytes 16 % (20-55); Macrocytosis 2+; Platelet Estimate Normal; Segmented Neutrophils 60 % (50-85); Total Cells Counted 100
[2020-06-17] MEDS: ENOXAPARIN 40 MG/0.4 ML SYRINGE SUBCUT SCH (06:16)
[2020-06-17] MEDS ORDERED: VERAPAMIL SR 180 MG TABLET PO SCH (09:00)
[2020-06-17] MEDS: METOPROLOL TARTRATE 25 MG TABLET PO SCH ×2 (09:13→20:44)
[2020-06-17] MEDS: POTASSIUM CHLORIDE 20 MEQ TABLET PO PRN ×5 (09:13→22:45)
[2020-06-17] MEDS: FOLIC ACID 1 MG TABLET PO SCH (09:13)
[2020-06-17] MEDS: PANTOPRAZOLE 40 MG TABLET PO SCH (09:13)
[2020-06-17] MEDS: OFLOXACIN 0.3% OPH SOLN 5 ML BOTTLE BOTH EYES SCH ×2 (09:36→20:44)
[2020-06-17] MEDS ORDERED: ALUM/MAG/SIMETH/LIDO VISC 1:1 30 ML BOTTLE PO ONE (10:38)
[2020-06-17] MEDS: CYCLOBENZAPRINE 10 MG TABLET PO SCH (20:44)
[2020-06-18] MEDS: POTASSIUM CHLORIDE 20 MEQ TABLET PO PRN (00:45)
[2020-06-18 05:45] LABS: Basophils % 0.3 % (0.0-0.8); Eosinophils # 0.2 10*3/uL (0.0-0.87); Eosinophils % 2.3 % (0.00-10.9); Hemoglobin 16.6 GM/DL (14.0-18.0); Immature Granulocytes % 0.1 %; Immature Granulocytes Absolute 0.01 #; Lymphocytes # 0.7 10*3/uL (1.4-4.0); Lymphocytes % 10.1 % (21.2-54.2); Mean Corpuscular HGB Conc 33.2 GM/DL (32-36); Mean Platelet Volume 10.1 FL (9.6-12.0); Monocytes % 15.7 % (1.7-12.7); Neutrophils % 71.5 % (38.7-73.9); Platelet Count 220 T/CUMM (130-400); Red Blood Count 5.21 MC/CUMM (3.8-5.5); White Blood Count 7.3 T/CUMM (4-12)
[2020-06-18 06:04] LABS: Calcium 8.9 MG/DL (8.5-10.1); Osmolality,Calculated 270.8 MOS/KG (273-304)
[2020-06-18 06:07] LABS: Eosinophils 3 % (0-10); Hypochromasia 1+; Lymphocytes 12 % (20-55); Macrocytosis 1+; Segmented Neutrophils 68 % (50-85); Total Cells Counted 100
[2020-06-18 06:08] LABS: Platelet Estimate Normal
[2020-06-18] MEDS: ENOXAPARIN 40 MG/0.4 ML SYRINGE SUBCUT SCH (06:23)
[2020-06-18] MEDS: methylPREDNISolone SOD SUC 40 MG/1 ML VIAL IV SCH ×3 (08:58→21:23)
[2020-06-18] MEDS: METOPROLOL TARTRATE 25 MG TABLET PO SCH (08:58)
[2020-06-18] MEDS: PANTOPRAZOLE 40 MG TABLET PO SCH (08:58)
[2020-06-18] MEDS: OFLOXACIN 0.3% OPH SOLN 5 ML BOTTLE BOTH EYES SCH ×2 (08:59→21:34)
[2020-06-18] MEDS: FOLIC ACID 1 MG TABLET PO SCH (08:59)
[2020-06-18] MEDS: cefTRIAXone 1,000 MG in SYRINGE 1 EACH IV SCH (12:58)
[2020-06-18] MEDS: AZITHROMYCIN INJ 500 MG in SODIUM CHLORIDE 0.9% 250 ML IV SCH (12:59)
[2020-06-18] MEDS: ALBUTEROL/IPRATROPIUM 3 ML NEB RESP TX SCH ×2 (14:28→20:19)
[2020-06-18] MEDS ORDERED: hydrALAZINE 20 MG/1 ML VIAL IV PRN (19:59)
[2020-06-18] MEDS: FLUTICASONE/SALMETEROL 500-50 DISKUS 14 DOSE INH SCH (21:22)
[2020-06-18] MEDS: CYCLOBENZAPRINE 10 MG TABLET PO SCH (21:24)
[2020-06-19] MEDS: ALBUTEROL/IPRATROPIUM 3 ML NEB RESP TX SCH ×4 (00:31→20:42)
[2020-06-19] MEDS: methylPREDNISolone SOD SUC 40 MG/1 ML VIAL IV SCH ×4 (04:30→21:52)
[2020-06-19] MEDS: OFLOXACIN 0.3% OPH SOLN 5 ML BOTTLE BOTH EYES SCH ×2 (09:05→21:53)
[2020-06-19] MEDS: FLUTICASONE/SALMETEROL 500-50 DISKUS 14 DOSE INH SCH ×2 (09:05→21:53)
[2020-06-19] MEDS: NEBIVOLOL 5 MG TABLET PO SCH (09:06)
[2020-06-19] MEDS: FOLIC ACID 1 MG TABLET PO SCH (09:06)
[2020-06-19] MEDS: PANTOPRAZOLE 40 MG TABLET PO SCH (09:06)
[2020-06-19] MEDS ORDERED: LOPERAMIDE 2 MG CAPSULE PO PRN ×2 (09:11)
[2020-06-19] MEDS: cefTRIAXone 1,000 MG in SYRINGE 1 EACH IV SCH (11:29)
[2020-06-19] MEDS: AZITHROMYCIN INJ 500 MG in SODIUM CHLORIDE 0.9% 250 ML IV SCH (14:51)
[2020-06-19 15:17] LABS: RBC,Pleural Fluid 20766 T/CUMM
[2020-06-19 16:03] LABS: Lymphocytes,Pleural Fluid 97 %; Monocytes,Pleural Fluid 2 %; Neutrophils,Pleural Fluid 1 %
[2020-06-19] MEDS: CYCLOBENZAPRINE 10 MG TABLET PO SCH (21:52)
[2020-06-20] MEDS: ALBUTEROL/IPRATROPIUM 3 ML NEB RESP TX SCH ×2 (01:18→07:45)
[2020-06-20] MEDS: methylPREDNISolone SOD SUC 40 MG/1 ML VIAL IV SCH ×2 (03:28→08:25)
[2020-06-20] MEDS: ENOXAPARIN 40 MG/0.4 ML SYRINGE SUBCUT SCH (07:07)
[2020-06-20] MEDS: PANTOPRAZOLE 40 MG TABLET PO SCH (08:25)
[2020-06-20] MEDS: NEBIVOLOL 5 MG TABLET PO SCH (08:25)
[2020-06-20] MEDS: FOLIC ACID 1 MG TABLET PO SCH (08:26)
[2020-06-20] MEDS: OFLOXACIN 0.3% OPH SOLN 5 ML BOTTLE BOTH EYES SCH (08:27)
[2020-06-20] MEDS: FLUTICASONE/SALMETEROL 500-50 DISKUS 14 DOSE INH SCH (08:27)
[2020-06-20 08:48] LABS: Basophils % 0.1 % (0.0-0.8); Hematocrit 52.9 VOL% (42.0-52.0); Hemoglobin 17.1 GM/DL (14.0-18.0); Immature Granulocytes % 0.4 %; Immature Granulocytes Absolute 0.06 #; Lymphocytes # 0.4 10*3/uL (1.4-4.0); Lymphocytes % 2.8 % (21.2-54.2); Mean Corpuscular HGB Conc 32.3 GM/DL (32-36); Mean Corpuscular Volume 98.1 FL (87-102); Mean Platelet Volume 10.2 FL (9.6-12.0); Monocytes % 5.9 % (1.7-12.7); Neutrophils % 90.8 % (38.7-73.9); Platelet Count 257 T/CUMM (130-400); Red Blood Count 5.39 MC/CUMM (3.8-5.5); Red Cell Distribution Width 17.3 % (9.3-17.3)
[2020-06-20 08:55] LABS: Calcium 9.7 MG/DL (8.5-10.1); Osmolality,Calculated 271.4 MOS/KG (273-304)
[2020-06-20 09:07] LABS: Hypochromasia 1+; Lymphocytes 4 % (20-55); Nucleated Red Blood Cells 1 (0-5); Platelet Estimate Adequate; Segmented Neutrophils 93 % (50-85); Total Cells Counted 100
[2020-06-20 09:08] LABS: Macrocytosis Slight
[2020-06-20 12:16] VITALS: BP 145/81
== END 2020-06-20 13:45 | disposition home health service (06) | DRG 181 ==
LOC: EDUNIT# → N.ED 23:46 → N.EDINP 23:46 → SUATTDRO 06-17 05:04 → N.EDINP 06-17 07:57 → N.4E 06-17 08:05
PROVIDERS: ADMIT Internal Medicine; ATTEND Internal Medicine

== ENCOUNTER 2020-08-03 17:02 | Observation (INO) ==
[2020-08-03] MEDS ORDERED: SODIUM CHLORIDE 0.9% 1,000 ML IV STA (17:24)
[2020-08-03] MEDS ORDERED: ONDANSETRON 4 MG/2 ML VIAL IV ONE (18:33)
[2020-08-03 18:51] LABS: Basophils % 0.4 % (0.0-0.8); Eosinophils % 0.3 % (0.00-10.9); Hematocrit 54.5 VOL% (42.0-52.0); Hemoglobin 18.2 GM/DL (14.0-18.0); Immature Granulocytes % 0.3 %; Immature Granulocytes Absolute 0.02 #; Lymphocytes # 0.8 10*3/uL (1.4-4.0); Lymphocytes % 10.7 % (21.2-54.2); Mean Corpuscular HGB Conc 33.4 GM/DL (32-36); Mean Corpuscular Volume 95.6 FL (87-102); Mean Platelet Volume 9.9 FL (9.6-12.0); Monocytes % 13.3 % (1.7-12.7); Platelet Count 239 T/CUMM (130-400); Red Cell Distribution Width 17.2 % (9.3-17.3); White Blood Count 7.2 T/CUMM (4-12)
[2020-08-03 19:02] LABS: Apearance,Urine CLOUDY (Clear); Bilirubin,Urine Negative (Negative); Blood, Urine Small mg/dL (Negative); Glucose,Urine (UA) Negative (Negative); Hyaline Casts,Urine 1 /LPF (0-3); Ketones,Urine 5 mg/dL (Negative); Mucus,Urine Occasional /LPF (Occasional); Nitrite,Urine Negative (Negative); Protein,Urine 30 MG/DL; RBC,Urine 1 /HPF (0-4); Squamous Epithelial Cell,Urine Occasional /HPF (0-10); Urine Color Amber (Yellow); Urine Specific Gravity 1.025 (1.001-1.035); WBC,Urine 1 /HPF (0-6)
[2020-08-03 19:06] LABS: Albumin 3.7 G/DL (3.4-5.0); Bilirubin,Total 1.4 MG/DL (0.2-1.0); Calcium 9.2 MG/DL (8.5-10.1); Osmolality,Calculated 282.1 MOS/KG (273-304); Total Protein 7.2 G/DL (6.4-8.3)
[2020-08-03 19:33] LABS: Ferritin 147.1 ng/ml (26-388)
[2020-08-03] MEDS ORDERED: hydrALAZINE 20 MG/1 ML VIAL IV PRN (20:36)
[2020-08-03] MEDS ORDERED: guaiFENesin/DM ER 600-30 MG TABLET PO PRN (20:36)
[2020-08-03] MEDS ORDERED: ACETAMINOPHEN 325 MG TABLET PO PRN (20:36)
[2020-08-03] MEDS ORDERED: diphenhydrAMINE CAP 25 MG CAPSULE PO PRN (20:36)
[2020-08-03] MEDS ORDERED: MORPHINE 4 MG/1 ML VIAL IV PRN (20:36)
[2020-08-03] MEDS ORDERED: NICOTINE 21 MG/24 HR PATCH TRANSDERM PRN (20:36)
[2020-08-03] MEDS ORDERED: ONDANSETRON 4 MG/2 ML VIAL IV PRN (20:36)
[2020-08-03] MEDS ORDERED: DEXTROSE 50% 25 GM/50 ML VIAL IV PRN (20:36)
[2020-08-03] MEDS ORDERED: PROMETHAZINE 25 MG/1 ML VIAL IM PRN (20:36)
[2020-08-03] MEDS ORDERED: ZALEPLON 5 MG CAPSULE PO PRN (20:36)
[2020-08-03] MEDS ORDERED: GLUCAGON 1 MG VIAL IM PRN (20:36)
[2020-08-03] MEDS ORDERED: METOPROLOL TARTRATE 25 MG TABLET PO SCH (21:00)
[2020-08-03] MEDS: DOCUSATE SODIUM 100 MG CAPSULE PO SCH (22:05)
[2020-08-04] MEDS ORDERED: ENOXAPARIN 80 MG/0.8 ML SYRINGE SUBCUT ONE (06:00)
[2020-08-04 06:28] LABS: Basophils % 0.3 % (0.0-0.8); Eosinophils # 0.1 10*3/uL (0.0-0.87); Eosinophils % 1.5 % (0.00-10.9); Hematocrit 51.2 VOL% (42.0-52.0); Hemoglobin 17.3 GM/DL (14.0-18.0); Immature Granulocytes % 0.3 %; Immature Granulocytes Absolute 0.02 #; Lymphocytes # 0.7 10*3/uL (1.4-4.0); Lymphocytes % 12.3 % (21.2-54.2); Mean Corpuscular HGB Conc 33.8 GM/DL (32-36); Mean Platelet Volume 9.9 FL (9.6-12.0); Monocytes % 16.3 % (1.7-12.7); Neutrophils % 69.3 % (38.7-73.9); Platelet Count 226 T/CUMM (130-400); Red Blood Count 5.39 MC/CUMM (3.8-5.5); White Blood Count 5.8 T/CUMM (4-12)
[2020-08-04 06:59] LABS: Albumin 3.2 G/DL (3.4-5.0); Bilirubin,Total 3.4 MG/DL (0.2-1.0); Calcium 8.7 MG/DL (8.5-10.1); Eosinophils 3 % (0-10); Hypochromasia Slight; Lymphocytes 17 % (20-55); Osmolality,Calculated 276.4 MOS/KG (273-304); Segmented Neutrophils 70 % (50-85); Total Cells Counted 100
[2020-08-04 07:00] LABS: Macrocytosis 1+; Platelet Estimate Normal; Polychromasia Slight
[2020-08-04 10:02] LABS: Hepatitis B Core IgM Quant 0.24 Index; Hepatitis B Surface Ag Quant < 0.10 Index; Hepatitis B Surface Ag Result Negative (Negative); Hepatitis C Virus Ab Quant 0.07 Index; Hepatitis C Virus Ab Result Negative (Negative)
[2020-08-04] MEDS: BUDESONIDE/FORMOTEROL 160-4.5 INHALER 6 GM INH SCH ×2 (11:16→20:19)
[2020-08-04] MEDS: FLUTICASONE/SALMETEROL 500-50 DISKUS 14 DOSE INH SCH ×2 (11:17→20:18)
[2020-08-04] MEDS: POTASSIUM CHLORIDE RIDER 10 MEQ in PREMIX 1 EACH IV PRN ×5 (11:17→19:18)
[2020-08-04] MEDS: OFLOXACIN 0.3% OPH SOLN 5 ML BOTTLE BOTH EYES SCH ×2 (11:17→20:21)
[2020-08-04] MEDS: VERAPAMIL SR 180 MG TABLET PO SCH (11:19)
[2020-08-04] MEDS: DOCUSATE SODIUM 100 MG CAPSULE PO SCH ×2 (11:20→20:18)
[2020-08-04] MEDS: NEBIVOLOL 5 MG TABLET PO SCH (11:20)
[2020-08-04] MEDS: FOLIC ACID 1 MG TABLET PO SCH (11:20)
[2020-08-04] MEDS: PANTOPRAZOLE 40 MG TABLET PO SCH (11:20)
[2020-08-04] MEDS: LINACLOTIDE 145 MCG CAPSULE PO SCH (11:24)
[2020-08-04] MEDS: TAMSULOSIN 0.4 MG CAPSULE PO SCH (20:18)
[2020-08-05 07:56] VITALS: BP 120/74
[2020-08-05] MEDS: FLUTICASONE/SALMETEROL 500-50 DISKUS 14 DOSE INH SCH (08:34)
[2020-08-05] MEDS: BUDESONIDE/FORMOTEROL 160-4.5 INHALER 6 GM INH SCH (08:34)
[2020-08-05] MEDS: LINACLOTIDE 145 MCG CAPSULE PO SCH (08:34)
[2020-08-05] MEDS: VERAPAMIL SR 180 MG TABLET PO SCH (08:35)
[2020-08-05] MEDS: FOLIC ACID 1 MG TABLET PO SCH (08:35)
[2020-08-05] MEDS: PANTOPRAZOLE 40 MG TABLET PO SCH (08:35)
[2020-08-05] MEDS: NEBIVOLOL 5 MG TABLET PO SCH (08:35)
[2020-08-05] MEDS: DOCUSATE SODIUM 100 MG CAPSULE PO SCH (08:35)
[2020-08-05] MEDS: TAMSULOSIN 0.4 MG CAPSULE PO SCH (08:35)
[2020-08-05] MEDS: OFLOXACIN 0.3% OPH SOLN 5 ML BOTTLE BOTH EYES SCH (08:36)
== END 2020-08-05 13:35 | disposition home or self-care (01) ==
LOC: EDUNIT# → N.EDINP 17:02 → N.ED 17:02 → N.4E 21:16
PROVIDERS: ADMIT Hospitalist; ATTEND Hospitalist

== ENCOUNTER 2020-09-17 15:29 | Observation (INO) ==
[2020-09-17] MEDS ORDERED: cefTRIAXone 1,000 MG in SODIUM CHLORIDE 0.9% 100 ML IV STA (15:52)
[2020-09-17] MEDS ORDERED: SODIUM CHLORIDE 0.9% 1,000 ML IV STA (15:52)
[2020-09-17 15:54] LABS: Basophils % 0.4 % (0.0-0.8); Eosinophils % 0.3 % (0.00-10.9); Hematocrit 50.9 VOL% (42.0-52.0); Hemoglobin 17.1 GM/DL (14.0-18.0); Immature Granulocytes % 0.3 %; Immature Granulocytes Absolute 0.03 #; Lymphocytes # 0.9 10*3/uL (1.4-4.0); Lymphocytes % 7.9 % (21.2-54.2); Mean Corpuscular HGB Conc 33.6 GM/DL (32-36); Mean Corpuscular Volume 92.4 FL (87-102); Mean Platelet Volume 9.9 FL (9.6-12.0); Monocytes % 13.9 % (1.7-12.7); Neutrophils % 77.2 % (38.7-73.9); Platelet Count 222 T/CUMM (130-400); Red Blood Count 5.51 MC/CUMM (3.8-5.5); White Blood Count 11.1 T/CUMM (4-12)
[2020-09-17 16:15] LABS: Calcium 9.2 MG/DL (8.5-10.1); Osmolality,Calculated 260.7 MOS/KG (273-304)
[2020-09-17 16:17] LABS: INR 1.1; PT Patient Result 11.9 SECS (9.8-11.9)
[2020-09-17] MEDS ORDERED: GLUCAGON 1 MG VIAL IM PRN (17:51)
[2020-09-17] MEDS ORDERED: LACTULOSE 20 GM/30 ML UDCUP PO PRN (17:51)
[2020-09-17] MEDS ORDERED: DOCUSATE SODIUM 100 MG CAPSULE PO PRN (17:51)
[2020-09-17] MEDS ORDERED: NICOTINE 21 MG/24 HR PATCH TRANSDERM PRN (17:51)
[2020-09-17] MEDS ORDERED: ONDANSETRON 4 MG/2 ML VIAL IV PRN (17:51)
[2020-09-17] MEDS ORDERED: PROMETHAZINE 25 MG/1 ML VIAL IM PRN (17:51)
[2020-09-17] MEDS ORDERED: guaiFENesin/DM ER 600-30 MG TABLET PO PRN (17:51)
[2020-09-17] MEDS ORDERED: MORPHINE 4 MG/1 ML VIAL IV PRN (17:51)
[2020-09-17] MEDS ORDERED: DEXTROSE 50% 25 GM/50 ML VIAL IV PRN (17:51)
[2020-09-17] MEDS ORDERED: ACETAMINOPHEN 325 MG TABLET PO PRN (17:51)
[2020-09-17] MEDS ORDERED: ZINC SULFATE 220 MG CAPSULE PO SCH (19:00)
[2020-09-17] MEDS ORDERED: ENOXAPARIN 40 MG/0.4 ML SYRINGE SUBCUT SCH (21:00)
[2020-09-17] MEDS ORDERED: AZITHROMYCIN INJ 500 MG in SODIUM CHLORIDE 0.9% 250 ML IV SCH (21:00)
[2020-09-18 05:37] LABS: Basophils % 0.5 % (0.0-0.8); Eosinophils % 0.2 % (0.00-10.9); Hematocrit 49.4 VOL% (42.0-52.0); Hemoglobin 16.6 GM/DL (14.0-18.0); Immature Granulocytes % 0.2 %; Immature Granulocytes Absolute 0.02 #; Lymphocytes # 0.8 10*3/uL (1.4-4.0); Lymphocytes % 9.1 % (21.2-54.2); Mean Corpuscular HGB Conc 33.6 GM/DL (32-36); Mean Platelet Volume 10.4 FL (9.6-12.0); Monocytes % 21.1 % (1.7-12.7); Neutrophils % 68.9 % (38.7-73.9); Platelet Count 220 T/CUMM (130-400); Red Blood Count 5.31 MC/CUMM (3.8-5.5); Red Cell Distribution Width 13.9 % (9.3-17.3); White Blood Count 8.2 T/CUMM (4-12)
[2020-09-18] MEDS: ALBUTEROL INHALER 18 GM INH SCH ×3 (05:51→12:09)
[2020-09-18 05:59] LABS: Bilirubin,Total 0.7 MG/DL (0.2-1.0); Calcium 9.2 MG/DL (8.5-10.1); Eosinophils 1 % (0-10); Ferritin 325.5 ng/ml (26-388); Lymphocytes 13 % (20-55); Osmolality,Calculated 263.4 MOS/KG (273-304); Platelet Estimate Adequate; Segmented Neutrophils 68 % (50-85); Thyroid Stimulating Hormone 0.196 uIU/ml (0.358-3.74); Total Cells Counted 100; Total Protein 6.9 G/DL (6.4-8.3)
[2020-09-18 06:54] LABS: Sedimentation Rate-Westergren 21 MM/HR (0-20)
[2020-09-18] MEDS ORDERED: MAGNESIUM SULF RIDER 2 GM in PREMIX 1 EACH IV PRN (08:01)
[2020-09-18] MEDS ORDERED: MAGNESIUM SULF RIDER 4 GM in PREMIX 1 EACH IV PRN (08:01)
[2020-09-18 08:52] VITALS: BP 116/68
[2020-09-18] MEDS ORDERED: METOPROLOL TARTRATE 25 MG TABLET PO SCH (09:00)
[2020-09-18] MEDS ORDERED: DEXAMETHASONE 10 MG/1 ML VIAL IV SCH (09:00)
[2020-09-18] MEDS ORDERED: FOLIC ACID 1 MG TABLET PO SCH (09:00)
[2020-09-18] MEDS ORDERED: TAMSULOSIN 0.4 MG CAPSULE PO SCH (09:00)
[2020-09-18] MEDS ORDERED: VERAPAMIL SR 180 MG TABLET PO SCH (09:00)
[2020-09-18] MEDS ORDERED: PANTOPRAZOLE 40 MG TABLET PO SCH (09:00)
[2020-09-18] MEDS ORDERED: NEBIVOLOL 5 MG TABLET PO SCH (09:00)
[2020-09-18] MEDS ORDERED: cefTRIAXone 1,000 MG in SYRINGE 1 EACH IV SCH (18:00)
== END 2020-09-18 15:30 | disposition home or self-care (01) ==
LOC: EDUNIT# → EDBD → N.ED 15:29 → N.EDINP 15:29 → N.2E 18:20
PROVIDERS: ADMIT Internal Medicine; ATTEND Internal Medicine

== ENCOUNTER 2020-09-24 17:03 | Inpatient (IN) ==
[2020-09-24] MEDS ORDERED: ONDANSETRON 4 MG/2 ML VIAL IV PRN (19:10)
[2020-09-24] MEDS ORDERED: ALBUTEROL 2.5 MG/3 ML NEB RESP TX PRN (19:10)
[2020-09-24] MEDS ORDERED: MAGNESIUM SULF RIDER 4 GM in PREMIX 1 EACH IV ONE (19:18)
[2020-09-24] MEDS ORDERED: PHENYLEPHRINE DRIP 40 MG/250 ML PREMIX IV SCH (19:30)
[2020-09-24] MEDS ORDERED: AZITHROMYCIN INJ 500 MG in SODIUM CHLORIDE 0.9% 250 ML IV SCH (19:30)
[2020-09-24 19:31] LABS: Basophils % 0.3 % (0.0-0.8); Hematocrit 47.6 VOL% (42.0-52.0); Hemoglobin 16.7 GM/DL (14.0-18.0); Immature Granulocytes % 0.8 %; Immature Granulocytes Absolute 0.06 #; Lymphocytes # 0.3 10*3/uL (1.4-4.0); Lymphocytes % 3.4 % (21.2-54.2); Mean Corpuscular HGB Conc 35.1 GM/DL (32-36); Mean Corpuscular Volume 89.5 FL (87-102); Mean Platelet Volume 10.1 FL (9.6-12.0); Monocytes % 5.8 % (1.7-12.7); Neutrophils % 89.7 % (38.7-73.9); Platelet Count 243 T/CUMM (130-400); Red Blood Count 5.32 MC/CUMM (3.8-5.5); Red Cell Distribution Width 13.8 % (9.3-17.3)
[2020-09-24 19:51] LABS: Bilirubin,Total 0.4 MG/DL (0.2-1.0); Calcium 8.5 MG/DL (8.5-10.1); Osmolality,Calculated 271.5 MOS/KG (273-304); Total Protein 6.6 G/DL (6.4-8.3)
[2020-09-24 19:56] LABS: Lymphocytes 5 % (20-55); Segmented Neutrophils 95 % (50-85); Total Cells Counted 100
[2020-09-24 19:57] LABS: Hypochromasia 1+; Platelet Estimate Normal; Toxic Granulation 1+
[2020-09-24 20:23] LABS: ABG Base Excess 1.4 MMOL/L (-2.5-2.5); ABG HCO3 25.5 MMOL/L (20-26); ABG Oxygen Saturation 93.8 % (95-100); ABG PCO2 36.8 MM HG (35-48); ABG PH 7.442 (7.35-7.45); ABG PO2 71.6 MM HG (80-95); ABG TCO2 20.8 MMOL/L (23-27)
[2020-09-24 20:24] LABS: Allen Test Positive
[2020-09-24] MEDS: DEXAMETHASONE 4 MG TABLET PO SCH (20:41)
[2020-09-24] MEDS: POTASSIUM CHLORIDE 20 MEQ TABLET PO SCH (20:42)
[2020-09-24] MEDS: FAMOTIDINE 20 MG TABLET PO SCH (20:42)
[2020-09-24] MEDS: MEROPENEM 500 MG in SODIUM CHLORIDE 0.9% 100 ML IV SCH (20:42)
[2020-09-24] MEDS: ENOXAPARIN 40 MG/0.4 ML SYRINGE SUBCUT SCH (20:43)
[2020-09-24] MEDS: LACTATED RINGERS 1,000 ML IV SCH (20:44)
[2020-09-25] MEDS: POTASSIUM CHLORIDE 20 MEQ TABLET PO SCH ×2 (01:15→05:27)
[2020-09-25] MEDS: MEROPENEM 500 MG in SODIUM CHLORIDE 0.9% 100 ML IV SCH ×4 (03:50→20:54)
[2020-09-25] MEDS: LACTATED RINGERS 1,000 ML IV SCH ×3 (05:36→22:21)
[2020-09-25 05:38] LABS: Basophils % 0.4 % (0.0-0.8); Hematocrit 52.3 VOL% (42.0-52.0); Hemoglobin 18.1 GM/DL (14.0-18.0); Immature Granulocytes % 0.5 %; Immature Granulocytes Absolute 0.03 #; Lymphocytes # 0.3 10*3/uL (1.4-4.0); Lymphocytes % 5.8 % (21.2-54.2); Mean Corpuscular HGB Conc 34.6 GM/DL (32-36); Mean Corpuscular Volume 90.6 FL (87-102); Mean Platelet Volume 10.4 FL (9.6-12.0); Monocytes % 6.1 % (1.7-12.7); Neutrophils % 87.2 % (38.7-73.9); Platelet Count 214 T/CUMM (130-400); Red Blood Count 5.77 MC/CUMM (3.8-5.5); Red Cell Distribution Width 13.9 % (9.3-17.3); White Blood Count 5.5 T/CUMM (4-12)
[2020-09-25 05:44] LABS: Ferritin 515.5 ng/ml (26-388)
[2020-09-25 05:49] LABS: Platelet Estimate Adequate
[2020-09-25 06:58] LABS: Calcium 9.2 MG/DL (8.5-10.1); Osmolality,Calculated 271.2 MOS/KG (273-304)
[2020-09-25] MEDS: DEXAMETHASONE 4 MG TABLET PO SCH (08:35)
[2020-09-25] MEDS: FAMOTIDINE 20 MG TABLET PO SCH ×2 (08:35→20:55)
[2020-09-25] MEDS: AZITHROMYCIN INJ 500 MG in SODIUM CHLORIDE 0.9% 250 ML IV SCH (09:00)
[2020-09-25] MEDS ORDERED: BUDESONIDE/FORMOTEROL 160-4.5 INHALER 6 GM INH SCH (11:50)
[2020-09-25] MEDS: FLUTICASONE/SALMETEROL 500-50 DISKUS 14 DOSE INH SCH ×2 (13:34→20:54)
[2020-09-25] MEDS: LINACLOTIDE 145 MCG CAPSULE PO SCH (13:34)
[2020-09-25] MEDS: TAMSULOSIN 0.4 MG CAPSULE PO SCH (20:54)
[2020-09-25] MEDS: ENOXAPARIN 40 MG/0.4 ML SYRINGE SUBCUT SCH (20:54)
[2020-09-25] MEDS: OFLOXACIN 0.3% OPH SOLN 5 ML BOTTLE BOTH EYES SCH (20:55)
[2020-09-26] MEDS: MEROPENEM 500 MG in SODIUM CHLORIDE 0.9% 100 ML IV SCH ×4 (03:17→21:00)
[2020-09-26 04:04] LABS: Basophils % 0.1 % (0.0-0.8); Hematocrit 45.5 VOL% (42.0-52.0); Immature Granulocytes % 0.4 %; Immature Granulocytes Absolute 0.06 #; Lymphocytes # 0.4 10*3/uL (1.4-4.0); Mean Corpuscular HGB Conc 33.8 GM/DL (32-36); Mean Corpuscular Volume 90.6 FL (87-102); Mean Platelet Volume 10.8 FL (9.6-12.0); Monocytes % 5.6 % (1.7-12.7); Neutrophils % 90.9 % (38.7-73.9); Platelet Count 200 T/CUMM (130-400); Red Blood Count 5.02 MC/CUMM (3.8-5.5); Red Cell Distribution Width 13.9 % (9.3-17.3)
[2020-09-26 04:11] LABS: Hemoglobin 15.4 GM/DL (14.0-18.0); White Blood Count 14.3 T/CUMM (4-12)
[2020-09-26 04:14] LABS: Osmolality,Calculated 276.4 MOS/KG (273-304)
[2020-09-26 04:23] LABS: Ferritin 443.2 ng/ml (26-388)
[2020-09-26] MEDS: LACTATED RINGERS 1,000 ML IV SCH ×3 (04:25→22:15)
[2020-09-26 04:38] LABS: Lymphocytes 2 % (20-55); Segmented Neutrophils 97 % (50-85); Target Cells Slight; Tear Drop Cells Slight; Total Cells Counted 100
[2020-09-26 04:39] LABS: Hypochromasia 1+; Microcytosis Slight; Platelet Estimate Normal
[2020-09-26] MEDS: DEXAMETHASONE 4 MG TABLET PO SCH (08:58)
[2020-09-26] MEDS: OFLOXACIN 0.3% OPH SOLN 5 ML BOTTLE BOTH EYES SCH ×2 (08:58→21:00)
[2020-09-26] MEDS: FAMOTIDINE 20 MG TABLET PO SCH ×2 (08:58→21:00)
[2020-09-26] MEDS: LINACLOTIDE 145 MCG CAPSULE PO SCH (08:58)
[2020-09-26] MEDS: FOLIC ACID 1 MG TABLET PO SCH (08:58)
[2020-09-26] MEDS: ALBUTEROL INHALER 18 GM INH SCH ×3 (08:59→18:56)
[2020-09-26] MEDS: TAMSULOSIN 0.4 MG CAPSULE PO SCH ×2 (08:59→20:59)
[2020-09-26] MEDS: FLUTICASONE/SALMETEROL 500-50 DISKUS 14 DOSE INH SCH ×2 (09:50→20:59)
[2020-09-26] MEDS: AZITHROMYCIN INJ 500 MG in SODIUM CHLORIDE 0.9% 250 ML IV SCH (10:14)
[2020-09-26] MEDS: ENOXAPARIN 40 MG/0.4 ML SYRINGE SUBCUT SCH (20:59)
[2020-09-27] MEDS: ALBUTEROL INHALER 18 GM INH SCH ×4 (00:17→20:07)
[2020-09-27] MEDS: MEROPENEM 500 MG in SODIUM CHLORIDE 0.9% 100 ML IV SCH ×4 (02:07→20:00)
[2020-09-27 05:39] LABS: Basophils % 0.1 % (0.0-0.8); Hematocrit 46.3 VOL% (42.0-52.0); Hemoglobin 16.1 GM/DL (14.0-18.0); Immature Granulocytes % 0.6 %; Immature Granulocytes Absolute 0.06 #; Lymphocytes # 0.4 10*3/uL (1.4-4.0); Mean Corpuscular HGB Conc 34.8 GM/DL (32-36); Mean Corpuscular Volume 88.9 FL (87-102); Mean Platelet Volume 10.7 FL (9.6-12.0); Monocytes % 6.4 % (1.7-12.7); Neutrophils % 88.9 % (38.7-73.9); Platelet Count 204 T/CUMM (130-400); Red Blood Count 5.21 MC/CUMM (3.8-5.5); Red Cell Distribution Width 13.7 % (9.3-17.3); White Blood Count 10.1 T/CUMM (4-12)
[2020-09-27 05:59] LABS: Calcium 9.1 MG/DL (8.5-10.1); Osmolality,Calculated 258.9 MOS/KG (273-304)
[2020-09-27 06:02] LABS: Band Neutrophils 2 % (0-10); Lymphocytes 6 % (20-55); Segmented Neutrophils 84 % (50-85); Total Cells Counted 100
[2020-09-27 06:03] LABS: Hypochromasia 1+; Microcytosis Slight; Platelet Estimate Normal
[2020-09-27] MEDS: ACETAMINOPHEN 325 MG TABLET PO PRN ×2 (06:15→20:00)
[2020-09-27] MEDS: LACTATED RINGERS 1,000 ML IV SCH ×2 (06:32→19:20)
[2020-09-27] MEDS: LINACLOTIDE 145 MCG CAPSULE PO SCH (09:18)
[2020-09-27] MEDS: FAMOTIDINE 20 MG TABLET PO SCH ×2 (09:19→20:00)
[2020-09-27] MEDS: DEXAMETHASONE 4 MG TABLET PO SCH (09:19)
[2020-09-27] MEDS: TAMSULOSIN 0.4 MG CAPSULE PO SCH ×2 (09:19→20:00)
[2020-09-27] MEDS: FOLIC ACID 1 MG TABLET PO SCH (09:19)
[2020-09-27] MEDS: FLUTICASONE/SALMETEROL 500-50 DISKUS 14 DOSE INH SCH ×2 (09:32→20:07)
[2020-09-27] MEDS: OFLOXACIN 0.3% OPH SOLN 5 ML BOTTLE BOTH EYES SCH ×2 (09:33→20:00)
[2020-09-27] MEDS: AZITHROMYCIN INJ 500 MG in SODIUM CHLORIDE 0.9% 250 ML IV SCH (10:18)
[2020-09-27] MEDS: ENOXAPARIN 40 MG/0.4 ML SYRINGE SUBCUT SCH (20:00)
[2020-09-28] MEDS: ALBUTEROL INHALER 18 GM INH SCH ×4 (00:48→19:48)
[2020-09-28] MEDS: MEROPENEM 500 MG in SODIUM CHLORIDE 0.9% 100 ML IV SCH ×4 (02:10→21:56)
[2020-09-28] MEDS: LACTATED RINGERS 1,000 ML IV SCH ×3 (02:36→22:39)
[2020-09-28] MEDS: ACETAMINOPHEN 325 MG TABLET PO PRN ×2 (04:30→15:50)
[2020-09-28 05:13] LABS: Basophils # 0.1 10*3/uL (0.0-0.2); Basophils % 0.5 % (0.0-0.8); Eosinophils % 0.3 % (0.00-10.9); Hematocrit 50.9 VOL% (42.0-52.0); Hemoglobin 17.3 GM/DL (14.0-18.0); Immature Granulocytes % 0.9 %; Immature Granulocytes Absolute 0.09 #; Lymphocytes # 0.4 10*3/uL (1.4-4.0); Lymphocytes % 4.3 % (21.2-54.2); Mean Platelet Volume 10.9 FL (9.6-12.0); Monocytes % 5.6 % (1.7-12.7); Neutrophils % 88.4 % (38.7-73.9); Platelet Count 179 T/CUMM (130-400); Red Blood Count 5.72 MC/CUMM (3.8-5.5); Red Cell Distribution Width 13.4 % (9.3-17.3); White Blood Count 9.8 T/CUMM (4-12)
[2020-09-28 05:37] LABS: Band Neutrophils 1 % (0-10); Lymphocytes 2 % (20-55); Platelet Estimate Normal; Segmented Neutrophils 94 % (50-85); Total Cells Counted 100
[2020-09-28 06:46] LABS: Calcium 9.2 MG/DL (8.5-10.1); Osmolality,Calculated 262.5 MOS/KG (273-304)
[2020-09-28] MEDS: LINACLOTIDE 145 MCG CAPSULE PO SCH (07:59)
[2020-09-28] MEDS: DEXAMETHASONE 4 MG TABLET PO SCH (08:00)
[2020-09-28] MEDS: TAMSULOSIN 0.4 MG CAPSULE PO SCH ×2 (08:00→21:53)
[2020-09-28] MEDS: FLUTICASONE/SALMETEROL 500-50 DISKUS 14 DOSE INH SCH ×2 (08:00→21:53)
[2020-09-28] MEDS: FOLIC ACID 1 MG TABLET PO SCH (08:00)
[2020-09-28] MEDS: OFLOXACIN 0.3% OPH SOLN 5 ML BOTTLE BOTH EYES SCH ×2 (08:01→21:53)
[2020-09-28] MEDS: FAMOTIDINE 20 MG TABLET PO SCH ×2 (08:01→21:53)
[2020-09-28] MEDS: AZITHROMYCIN INJ 500 MG in SODIUM CHLORIDE 0.9% 250 ML IV SCH (09:10)
[2020-09-28] MEDS: ENOXAPARIN 40 MG/0.4 ML SYRINGE SUBCUT SCH (21:53)
[2020-09-29] MEDS: ALBUTEROL INHALER 18 GM INH SCH ×4 (01:06→21:23)
[2020-09-29] MEDS: MEROPENEM 500 MG in SODIUM CHLORIDE 0.9% 100 ML IV SCH ×2 (03:24→08:23)
[2020-09-29] MEDS: LINACLOTIDE 145 MCG CAPSULE PO SCH (08:22)
[2020-09-29] MEDS: DEXAMETHASONE 4 MG TABLET PO SCH (08:22)
[2020-09-29] MEDS: TAMSULOSIN 0.4 MG CAPSULE PO SCH ×2 (08:22→21:24)
[2020-09-29] MEDS: FLUTICASONE/SALMETEROL 500-50 DISKUS 14 DOSE INH SCH ×2 (08:22→21:24)
[2020-09-29] MEDS: FOLIC ACID 1 MG TABLET PO SCH (08:22)
[2020-09-29] MEDS: FAMOTIDINE 20 MG TABLET PO SCH ×2 (08:23→21:24)
[2020-09-29] MEDS: OFLOXACIN 0.3% OPH SOLN 5 ML BOTTLE BOTH EYES SCH ×2 (08:23→21:21)
[2020-09-29] MEDS: LACTATED RINGERS 1,000 ML IV SCH ×3 (08:24→21:29)
[2020-09-29] MEDS: METOPROLOL TARTRATE 25 MG TABLET PO SCH ×2 (09:31→21:24)
[2020-09-29] MEDS: AZITHROMYCIN INJ 500 MG in SODIUM CHLORIDE 0.9% 250 ML IV SCH (09:31)
[2020-09-29 11:08] LABS: ABG Base Excess 4.4 MMOL/L (-2.5-2.5); ABG HCO3 28.2 MMOL/L (20-26); ABG Oxygen Saturation 92.2 % (95-100); ABG PCO2 30.5 MM HG (35-48); ABG PH 7.538 (7.35-7.45); ABG PO2 60.2 MM HG (80-95); ABG TCO2 21.2 MMOL/L (23-27)
[2020-09-29] MEDS: VERAPAMIL SR 180 MG TABLET PO SCH (11:32)
[2020-09-29] MEDS: cefTRIAXone 2,000 MG in SYRINGE 1 EACH IV SCH (11:33)
[2020-09-29] MEDS: MEGESTROL 400 MG/10 ML UDCUP PO SCH (11:34)
[2020-09-29] MEDS ORDERED: FUROSEMIDE 40 MG/4 ML VIAL IV ONE (11:45)
[2020-09-29] MEDS: ACETAMINOPHEN 325 MG TABLET PO PRN (12:35)
[2020-09-29] MEDS: DEXAMETHASONE 10 MG/1 ML VIAL IV SCH (16:24)
[2020-09-29] MEDS: ENOXAPARIN 40 MG/0.4 ML SYRINGE SUBCUT SCH (21:24)
[2020-09-30] MEDS: ALBUTEROL INHALER 18 GM INH SCH ×4 (02:38→20:25)
[2020-09-30 04:55] LABS: Basophils % 0.2 % (0.0-0.8); Hematocrit 45.9 VOL% (42.0-52.0); Immature Granulocytes % 0.6 %; Immature Granulocytes Absolute 0.07 #; Lymphocytes # 0.4 10*3/uL (1.4-4.0); Mean Corpuscular HGB Conc 34.9 GM/DL (32-36); Mean Corpuscular Volume 88.3 FL (87-102); Mean Platelet Volume 10.7 FL (9.6-12.0); Neutrophils % 92.2 % (38.7-73.9); Platelet Count 215 T/CUMM (130-400); Red Cell Distribution Width 13.4 % (9.3-17.3); White Blood Count 12.6 T/CUMM (4-12)
[2020-09-30 05:16] LABS: Calcium 9.6 MG/DL (8.5-10.1); Osmolality,Calculated 263.9 MOS/KG (273-304)
[2020-09-30 05:24] LABS: Lymphocytes 2 % (20-55); Platelet Estimate Normal; Segmented Neutrophils 97 % (50-85); Total Cells Counted 100
[2020-09-30 05:30] LABS: Ferritin 1080.2 ng/ml (26-388)
[2020-09-30] MEDS: LINACLOTIDE 145 MCG CAPSULE PO SCH (08:03)
[2020-09-30] MEDS: TAMSULOSIN 0.4 MG CAPSULE PO SCH ×2 (08:03→20:25)
[2020-09-30] MEDS: FOLIC ACID 1 MG TABLET PO SCH (08:03)
[2020-09-30] MEDS: VERAPAMIL SR 180 MG TABLET PO SCH (08:03)
[2020-09-30] MEDS: METOPROLOL TARTRATE 25 MG TABLET PO SCH ×2 (08:03→20:25)
[2020-09-30] MEDS: DEXAMETHASONE 10 MG/1 ML VIAL IV SCH (08:03)
[2020-09-30] MEDS: FLUTICASONE/SALMETEROL 500-50 DISKUS 14 DOSE INH SCH ×2 (08:03→20:25)
[2020-09-30] MEDS: MEGESTROL 400 MG/10 ML UDCUP PO SCH (08:04)
[2020-09-30] MEDS: OFLOXACIN 0.3% OPH SOLN 5 ML BOTTLE BOTH EYES SCH ×2 (08:04→22:50)
[2020-09-30] MEDS: AZITHROMYCIN 250 MG TABLET PO SCH (08:04)
[2020-09-30] MEDS: FAMOTIDINE 20 MG TABLET PO SCH ×2 (08:04→20:25)
[2020-09-30] MEDS: cefTRIAXone 2,000 MG in SYRINGE 1 EACH IV SCH (10:11)
[2020-09-30] MEDS ORDERED: SODIUM CHLORIDE 0.9% 1,000 ML IV PRN (14:20)
[2020-09-30] MEDS: ENOXAPARIN 40 MG/0.4 ML SYRINGE SUBCUT SCH (20:25)
[2020-10-01] MEDS: ALBUTEROL INHALER 18 GM INH SCH ×4 (01:55→20:23)
[2020-10-01 05:09] LABS: Basophils % 0.1 % (0.0-0.8); Hematocrit 45.5 VOL% (42.0-52.0); Hemoglobin 15.8 GM/DL (14.0-18.0); Immature Granulocytes % 0.7 %; Immature Granulocytes Absolute 0.08 #; Lymphocytes # 0.4 10*3/uL (1.4-4.0); Lymphocytes % 3.4 % (21.2-54.2); Mean Corpuscular HGB Conc 34.7 GM/DL (32-36); Mean Corpuscular Volume 88.3 FL (87-102); Mean Platelet Volume 11.2 FL (9.6-12.0); Monocytes % 3.3 % (1.7-12.7); Neutrophils % 92.5 % (38.7-73.9); Platelet Count 233 T/CUMM (130-400); Red Blood Count 5.15 MC/CUMM (3.8-5.5); Red Cell Distribution Width 13.4 % (9.3-17.3); White Blood Count 11.9 T/CUMM (4-12)
[2020-10-01 05:31] LABS: Calcium 9.1 MG/DL (8.5-10.1); Osmolality,Calculated 277.2 MOS/KG (273-304)
[2020-10-01 05:34] LABS: Ferritin 1059.1 ng/ml (26-388)
[2020-10-01 05:44] LABS: Band Neutrophils 1 % (0-10); Hypochromasia 1+; Lymphocytes 6 % (20-55); Ovalocytes Slight; Platelet Estimate Adequate; Segmented Neutrophils 89 % (50-85); Total Cells Counted 100
[2020-10-01 05:45] LABS: Microcytosis Slight
[2020-10-01] MEDS: MEGESTROL 400 MG/10 ML UDCUP PO SCH (09:19)
[2020-10-01] MEDS: LINACLOTIDE 145 MCG CAPSULE PO SCH (09:19)
[2020-10-01] MEDS: DEXAMETHASONE 10 MG/1 ML VIAL IV SCH (09:19)
[2020-10-01] MEDS: ENOXAPARIN 40 MG/0.4 ML SYRINGE SUBCUT SCH ×2 (09:19→20:22)
[2020-10-01] MEDS: TAMSULOSIN 0.4 MG CAPSULE PO SCH ×2 (09:20→20:23)
[2020-10-01] MEDS: OFLOXACIN 0.3% OPH SOLN 5 ML BOTTLE BOTH EYES SCH ×2 (09:20→20:23)
[2020-10-01] MEDS: FOLIC ACID 1 MG TABLET PO SCH (09:20)
[2020-10-01] MEDS: VERAPAMIL SR 180 MG TABLET PO SCH (09:20)
[2020-10-01] MEDS: FAMOTIDINE 20 MG TABLET PO SCH ×2 (09:20→20:22)
[2020-10-01] MEDS: AZITHROMYCIN 250 MG TABLET PO SCH (09:20)
[2020-10-01] MEDS: METOPROLOL TARTRATE 25 MG TABLET PO SCH ×2 (09:20→20:23)
[2020-10-01] MEDS: FLUTICASONE/SALMETEROL 500-50 DISKUS 14 DOSE INH SCH ×2 (09:20→20:23)
[2020-10-01] MEDS: cefTRIAXone 2,000 MG in SYRINGE 1 EACH IV SCH ×2 (12:00→15:59)
[2020-10-01] MEDS ORDERED: FUROSEMIDE 40 MG/4 ML VIAL IV ONE (14:47)
[2020-10-01] MEDS: ACETAMINOPHEN 325 MG TABLET PO PRN (20:23)
[2020-10-02] MEDS: ACETAMINOPHEN 325 MG TABLET PO PRN (00:36)
[2020-10-02] MEDS: ALBUTEROL INHALER 18 GM INH SCH ×4 (02:54→18:46)
[2020-10-02] MEDS: LINACLOTIDE 145 MCG CAPSULE PO SCH (10:31)
[2020-10-02] MEDS: MEGESTROL 400 MG/10 ML UDCUP PO SCH (10:33)
[2020-10-02] MEDS: ENOXAPARIN 40 MG/0.4 ML SYRINGE SUBCUT SCH ×2 (10:33→21:14)
[2020-10-02] MEDS: VERAPAMIL SR 180 MG TABLET PO SCH (10:33)
[2020-10-02] MEDS: DEXAMETHASONE 10 MG/1 ML VIAL IV SCH (10:33)
[2020-10-02] MEDS: FAMOTIDINE 20 MG TABLET PO SCH ×2 (10:34→21:18)
[2020-10-02] MEDS: AZITHROMYCIN 250 MG TABLET PO SCH (10:34)
[2020-10-02] MEDS: FOLIC ACID 1 MG TABLET PO SCH (10:34)
[2020-10-02] MEDS: METOPROLOL TARTRATE 25 MG TABLET PO SCH ×2 (10:34→21:18)
[2020-10-02] MEDS: TAMSULOSIN 0.4 MG CAPSULE PO SCH ×2 (10:34→21:17)
[2020-10-02] MEDS: FLUTICASONE/SALMETEROL 500-50 DISKUS 14 DOSE INH SCH ×2 (10:35→21:17)
[2020-10-02] MEDS: OFLOXACIN 0.3% OPH SOLN 5 ML BOTTLE BOTH EYES SCH ×2 (10:35→21:18)
[2020-10-02] MEDS: cefTRIAXone 2,000 MG in SYRINGE 1 EACH IV SCH (13:28)
[2020-10-03] MEDS: ALBUTEROL INHALER 18 GM INH SCH ×3 (03:57→13:38)
[2020-10-03 06:40] LABS: Basophils % 0.3 % (0.0-0.8); Hematocrit 48.4 VOL% (42.0-52.0); Hemoglobin 16.5 GM/DL (14.0-18.0); Immature Granulocytes Absolute 0.16 #; Lymphocytes # 0.5 10*3/uL (1.4-4.0); Lymphocytes % 2.9 % (21.2-54.2); Mean Corpuscular HGB Conc 34.1 GM/DL (32-36); Mean Platelet Volume 10.9 FL (9.6-12.0); Monocytes % 3.7 % (1.7-12.7); Neutrophils % 92.1 % (38.7-73.9); Platelet Count 267 T/CUMM (130-400); Red Cell Distribution Width 13.5 % (9.3-17.3); White Blood Count 15.9 T/CUMM (4-12)
[2020-10-03 06:54] LABS: Calcium 9.8 MG/DL (8.5-10.1); Osmolality,Calculated 266.9 MOS/KG (273-304)
[2020-10-03 07:14] LABS: Hypochromasia 1+; Lymphocytes 5 % (20-55); Microcytosis Slight; Segmented Neutrophils 92 % (50-85); Total Cells Counted 100
[2020-10-03 07:15] LABS: Platelet Estimate Normal
[2020-10-03] MEDS: DEXAMETHASONE 10 MG/1 ML VIAL IV SCH (09:10)
[2020-10-03] MEDS: ENOXAPARIN 40 MG/0.4 ML SYRINGE SUBCUT SCH (09:10)
[2020-10-03] MEDS: MEGESTROL 400 MG/10 ML UDCUP PO SCH (09:10)
[2020-10-03] MEDS: METOPROLOL TARTRATE 25 MG TABLET PO SCH (09:11)
[2020-10-03] MEDS: FOLIC ACID 1 MG TABLET PO SCH (09:11)
[2020-10-03] MEDS: VERAPAMIL SR 180 MG TABLET PO SCH (09:11)
[2020-10-03] MEDS: AZITHROMYCIN 250 MG TABLET PO SCH (09:11)
[2020-10-03] MEDS: FAMOTIDINE 20 MG TABLET PO SCH (09:11)
[2020-10-03] MEDS: OFLOXACIN 0.3% OPH SOLN 5 ML BOTTLE BOTH EYES SCH (09:11)
[2020-10-03] MEDS: TAMSULOSIN 0.4 MG CAPSULE PO SCH (09:11)
[2020-10-03] MEDS: LINACLOTIDE 145 MCG CAPSULE PO SCH (09:11)
[2020-10-03] MEDS: FLUTICASONE/SALMETEROL 500-50 DISKUS 14 DOSE INH SCH (09:11)
[2020-10-03] MEDS: cefTRIAXone 2,000 MG in SYRINGE 1 EACH IV SCH (10:19)
[2020-10-03 11:12] VITALS: BP 129/73
== END 2020-10-03 14:35 | disposition home health service (06) | DRG 177 ==
LOC: SUATTDRO 20:15 → N.CC 20:15 → N.2E 09-25 11:38
PROVIDERS: ADMIT Internal Medicine; ATTEND Internal Medicine

== ENCOUNTER 2020-12-06 10:15 | Observation (INO) ==
[2020-12-06] MEDS ORDERED: PROMETHAZINE INJ 25 MG in SODIUM CHLORIDE 0.9% 50 ML IV STA (10:49)
[2020-12-06] MEDS ORDERED: SODIUM CHLORIDE 0.9% 1,000 ML IV STA ×2 (10:49→14:11)
[2020-12-06] MEDS ORDERED: PROMETHAZINE 25 MG/1 ML VIAL ONE (10:52)
[2020-12-06 10:53] LABS: Basophils # 0.1 10*3/uL (0.0-0.2); Basophils % 0.4 % (0.0-0.8); Hematocrit 54.7 VOL% (42.0-52.0); Hemoglobin 19.2 GM/DL (14.0-18.0); Immature Granulocytes % 0.4 %; Immature Granulocytes Absolute 0.06 #; Lymphocytes % 6.5 % (21.2-54.2); Mean Corpuscular HGB Conc 35.1 GM/DL (32-36); Mean Corpuscular Volume 93.2 FL (87-102); Mean Platelet Volume 10.1 FL (9.6-12.0); Monocytes % 5.8 % (1.7-12.7); Neutrophils % 86.9 % (38.7-73.9); Platelet Count 232 T/CUMM (130-400); Red Blood Count 5.87 MC/CUMM (3.8-5.5); Red Cell Distribution Width 16.7 % (9.3-17.3); White Blood Count 14.6 T/CUMM (4-12)
[2020-12-06 11:19] LABS: Albumin 4.1 G/DL (3.4-5.0); Bilirubin,Total 2.5 MG/DL (0.2-1.0); Calcium 9.4 MG/DL (8.5-10.1); Osmolality,Calculated 279.3 MOS/KG (273-304); Total Protein 8.3 G/DL (6.4-8.3)
[2020-12-06 14:16] LABS: Bilirubin,Urine Negative (Negative); Blood, Urine Negative (Negative); Glucose,Urine (UA) Negative (Negative); Ketones,Urine Negative (Negative); Nitrite,Urine Negative (Negative); Protein,Urine Negative; RBC,Urine 1 /HPF (0-4); Squamous Epithelial Cell,Urine Occasional /HPF (0-10); Urine Appearance CLEAR (Clear); Urine Color Straw (Yellow); Urine Specific Gravity 1.028 (1.001-1.035); Urine Urobilinogen < 2.0 EU/DL (0.2-1.0); WBC,Urine 6 /HPF (0-6)
[2020-12-06 14:54] LABS: Barbiturates Screen,Urine Negative (Negative); Benzodiazepines Screen,Urine Negative (Negative); Cannabinoid Screen,Urine Negative (Negative); Opiate Screen,Urine Negative (Negative); Phencyclidine Screen,Urine Negative (Negative)
[2020-12-06] MEDS ORDERED: DEXTROSE 50% 25 GM/50 ML VIAL IV PRN (16:07)
[2020-12-06] MEDS ORDERED: DOCUSATE SODIUM 100 MG CAPSULE PO PRN (16:07)
[2020-12-06] MEDS ORDERED: SIMETHICONE CHEW 125 MG TABLET PO PRN (16:07)
[2020-12-06] MEDS ORDERED: ZALEPLON 5 MG CAPSULE PO PRN (16:07)
[2020-12-06] MEDS ORDERED: traZODone 50 MG TABLET PO PRN (16:07)
[2020-12-06] MEDS ORDERED: NICOTINE 21 MG/24 HR PATCH TRANSDERM PRN (16:07)
[2020-12-06] MEDS ORDERED: PROMETHAZINE 25 MG/1 ML VIAL IM PRN (16:07)
[2020-12-06] MEDS ORDERED: LACTULOSE 20 GM/30 ML UDCUP PO PRN (16:07)
[2020-12-06] MEDS ORDERED: ALUMINUM/MAGNES/SIMETH MAX STR 30 ML UDCUP PO PRN (16:07)
[2020-12-06] MEDS ORDERED: BISACODYL 5 MG TABLET PO PRN (16:07)
[2020-12-06] MEDS ORDERED: CALCIUM CARBONATE CHEW 500 MG TABLET PO PRN (16:07)
[2020-12-06] MEDS ORDERED: GLUCAGON 1 MG VIAL IM PRN (16:07)
[2020-12-06] MEDS ORDERED: diphenhydrAMINE CAP 25 MG CAPSULE PO PRN (16:07)
[2020-12-06] MEDS ORDERED: guaiFENesin/DM ER 600-30 MG TABLET PO PRN (16:07)
[2020-12-06] MEDS ORDERED: ONDANSETRON 4 MG/2 ML VIAL IV PRN (16:07)
[2020-12-06] MEDS ORDERED: hydrALAZINE 20 MG/1 ML VIAL IV PRN (16:07)
[2020-12-06] MEDS ORDERED: SODIUM CHLORIDE 0.9% 400 ML IV STA (16:07)
[2020-12-06] MEDS ORDERED: ALBUTEROL/IPRATROPIUM 3 ML NEB RESP TX PRN (16:07)
[2020-12-06] MEDS ORDERED: MORPHINE 4 MG/1 ML VIAL IV PRN (16:07)
[2020-12-06] MEDS ORDERED: PIPERACILLIN/TAZOBACTAM 3,375 MG VIAL IV ONE (16:48)
[2020-12-06] MEDS: PIPERACILLIN/TAZOBACTAM 3,375 MG in SODIUM CHLORIDE 0.9% 100 ML IV SCH (16:59)
[2020-12-06] MEDS: SODIUM CHLORIDE 0.9% 1,000 ML IV SCH (17:44)
[2020-12-06] MEDS: METOPROLOL TARTRATE 25 MG TABLET PO SCH (21:26)
[2020-12-06] MEDS: ENOXAPARIN 40 MG/0.4 ML SYRINGE SUBCUT SCH (21:26)
[2020-12-06] MEDS: TAMSULOSIN 0.4 MG CAPSULE PO SCH (21:26)
[2020-12-06] MEDS: FINASTERIDE 5 MG TABLET PO SCH (21:26)
[2020-12-06] MEDS: VANCOMYCIN INJ 1,250 MG in SODIUM CHLORIDE 0.9% 250 ML IV SCH (21:27)
[2020-12-07] MEDS: PIPERACILLIN/TAZOBACTAM 3,375 MG in SODIUM CHLORIDE 0.9% 100 ML IV SCH ×3 (00:26→21:16)
[2020-12-07 05:38] LABS: Bilirubin,Urine Negative (Negative); Blood, Urine Negative (Negative); Glucose,Urine (UA) Negative (Negative); Ketones,Urine 5 mg/dL (Negative); Mucus,Urine Occasional /LPF (Occasional); Nitrite,Urine Negative (Negative); Protein,Urine Negative; RBC,Urine 2 /HPF (0-4); Squamous Epithelial Cell,Urine Occasional /HPF (0-10); Urine Appearance CLEAR (Clear); Urine Color Yellow (Yellow); Urine Specific Gravity 1.026 (1.001-1.035); WBC,Urine 5 /HPF (0-6)
[2020-12-07 05:40] LABS: Basophils # 0.1 10*3/uL (0.0-0.2); Basophils % 0.8 % (0.0-0.8); Eosinophils # 0.1 10*3/uL (0.0-0.87); Eosinophils % 0.8 % (0.00-10.9); Hematocrit 48.7 VOL% (42.0-52.0); Immature Granulocytes % 0.2 %; Immature Granulocytes Absolute 0.01 #; Lymphocytes # 0.8 10*3/uL (1.4-4.0); Lymphocytes % 12.4 % (21.2-54.2); Mean Corpuscular HGB Conc 33.9 GM/DL (32-36); Mean Corpuscular Volume 96.8 FL (87-102); Mean Platelet Volume 10.7 FL (9.6-12.0); Monocytes % 13.1 % (1.7-12.7); Neutrophils % 72.7 % (38.7-73.9); Red Blood Count 5.03 MC/CUMM (3.8-5.5); Red Cell Distribution Width 16.5 % (9.3-17.3)
[2020-12-07 06:00] LABS: Hemoglobin 16.5 GM/DL (14.0-18.0); Platelet Count 181 T/CUMM (130-400); White Blood Count 6.4 T/CUMM (4-12)
[2020-12-07 06:13] LABS: Albumin 3.3 G/DL (3.4-5.0); Bilirubin,Total 3.1 MG/DL (0.2-1.0); Calcium 8.6 MG/DL (8.5-10.1); Osmolality,Calculated 275.4 MOS/KG (273-304); Total Protein 6.7 G/DL (6.4-8.3)
[2020-12-07] MEDS ORDERED: MAGNESIUM SULF RIDER 4 GM in PREMIX 1 EACH IV PRN (06:30)
[2020-12-07] MEDS ORDERED: MAGNESIUM SULF RIDER 2 GM in PREMIX 1 EACH IV PRN (06:30)
[2020-12-07] MEDS ORDERED: POTASSIUM CHLORIDE RIDER 10 MEQ in PREMIX 1 EACH IV PRN (06:30)
[2020-12-07] MEDS: SODIUM CHLORIDE 0.9% 1,000 ML IV SCH ×3 (08:14→18:02)
[2020-12-07] MEDS: FLUTICASONE/SALMETEROL 500-50 DISKUS 14 DOSE INH SCH ×3 (08:22→21:48)
[2020-12-07] MEDS: VANCOMYCIN INJ 1,250 MG in SODIUM CHLORIDE 0.9% 250 ML IV SCH (09:47)
[2020-12-07] MEDS: PANTOPRAZOLE 40 MG TABLET PO SCH (12:58)
[2020-12-07] MEDS: FINASTERIDE 5 MG TABLET PO SCH (12:58)
[2020-12-07] MEDS: CYCLOBENZAPRINE 10 MG TABLET PO SCH (12:58)
[2020-12-07] MEDS: METOPROLOL TARTRATE 25 MG TABLET PO SCH ×2 (12:58→21:15)
[2020-12-07] MEDS: VERAPAMIL SR 180 MG TABLET PO SCH (12:58)
[2020-12-07] MEDS: FOLIC ACID 1 MG TABLET PO SCH (12:59)
[2020-12-07] MEDS: POTASSIUM CHLORIDE 20 MEQ TABLET PO SCH ×2 (12:59→14:31)
[2020-12-07] MEDS: TAMSULOSIN 0.4 MG CAPSULE PO SCH ×2 (12:59→21:15)
[2020-12-07] MEDS: LINACLOTIDE 145 MCG CAPSULE PO SCH (13:02)
[2020-12-07] MEDS: chlordiazePOXIDE 10 MG CAPSULE PO SCH ×2 (14:31→21:15)
[2020-12-07] MEDS: THIAMINE 100 MG TABLET PO SCH (21:15)
[2020-12-07] MEDS: ENOXAPARIN 40 MG/0.4 ML SYRINGE SUBCUT SCH (21:17)
[2020-12-08] MEDS: PIPERACILLIN/TAZOBACTAM 3,375 MG in SODIUM CHLORIDE 0.9% 100 ML IV SCH (03:39)
[2020-12-08] MEDS: LINACLOTIDE 145 MCG CAPSULE PO SCH (07:40)
[2020-12-08 08:15] VITALS: BP 148/89
[2020-12-08] MEDS ORDERED: LOPERAMIDE 2 MG CAPSULE PO ONE (08:17)
[2020-12-08] MEDS: FINASTERIDE 5 MG TABLET PO SCH (08:39)
[2020-12-08] MEDS: chlordiazePOXIDE 10 MG CAPSULE PO SCH (08:39)
[2020-12-08] MEDS: VERAPAMIL SR 180 MG TABLET PO SCH (08:40)
[2020-12-08] MEDS: PANTOPRAZOLE 40 MG TABLET PO SCH (08:41)
[2020-12-08] MEDS: FOLIC ACID 1 MG TABLET PO SCH (08:41)
[2020-12-08] MEDS: METOPROLOL TARTRATE 25 MG TABLET PO SCH (08:41)
[2020-12-08] MEDS: CYCLOBENZAPRINE 10 MG TABLET PO SCH (08:41)
[2020-12-08] MEDS: THIAMINE 100 MG TABLET PO SCH (08:41)
[2020-12-08] MEDS: TAMSULOSIN 0.4 MG CAPSULE PO SCH (08:42)
[2020-12-08] MEDS: FLUTICASONE/SALMETEROL 500-50 DISKUS 14 DOSE INH SCH (08:42)
== END 2020-12-08 10:00 | disposition home or self-care (01) ==
LOC: EDUNIT# → N.ED 10:15 → N.EDINP 10:15 → N.3E 18:10
PROVIDERS: ADMIT Internal Medicine; ATTEND Internal Medicine

== ENCOUNTER 2020-12-14 18:31 | Inpatient (IN) ==
[2020-12-14] MEDS ORDERED: SODIUM CHLORIDE 0.9% 1,000 ML IV STA ×2 (18:53→20:40)
[2020-12-14 19:02] LABS: Basophils % 0.6 % (0.0-0.8); Eosinophils # 0.1 10*3/uL (0.0-0.87); Eosinophils % 0.9 % (0.00-10.9); Hematocrit 51.2 VOL% (42.0-52.0); Hemoglobin 17.6 GM/DL (14.0-18.0); Immature Granulocytes % 0.2 %; Immature Granulocytes Absolute 0.01 #; Lymphocytes # 1.3 10*3/uL (1.4-4.0); Lymphocytes % 23.9 % (21.2-54.2); Mean Corpuscular HGB Conc 34.4 GM/DL (32-36); Mean Corpuscular Volume 96.2 FL (87-102); Mean Platelet Volume 10.4 FL (9.6-12.0); Monocytes % 13.8 % (1.7-12.7); Neutrophils % 60.6 % (38.7-73.9); Platelet Count 206 T/CUMM (130-400); Red Blood Count 5.32 MC/CUMM (3.8-5.5); Red Cell Distribution Width 15.2 % (9.3-17.3); White Blood Count 5.3 T/CUMM (4-12)
[2020-12-14 19:28] LABS: Albumin 3.5 G/DL (3.4-5.0); Bilirubin,Total 0.8 MG/DL (0.2-1.0); Calcium 8.2 MG/DL (8.5-10.1); Osmolality,Calculated 282.1 MOS/KG (273-304)
[2020-12-14 19:30] LABS: INR 1.1; PT Patient Result 11.4 SECS (9.8-11.9); Partial Thromboplastin Time 31.4 SECS (23.9-33.8)
[2020-12-14] MEDS ORDERED: LEVOFLOXACIN INJ 500 MG in PREMIX 1 EACH IV STA (20:40)
[2020-12-14] MEDS ORDERED: hydrALAZINE 20 MG/1 ML VIAL ONE (21:41)
[2020-12-14] MEDS ORDERED: hydrALAZINE 20 MG/1 ML VIAL IV STA (21:46)
[2020-12-14] MEDS ORDERED: LEVALBUTEROL 1.25 MG/3 ML NEB RESP TX STA (22:18)
[2020-12-14] MEDS ORDERED: methylPREDNISolone SOD SUC 125 MG/2 ML VIAL ONE (22:29)
[2020-12-14] MEDS ORDERED: methylPREDNISolone SOD SUC 125 MG/2 ML VIAL IV STA (22:29)
[2020-12-14] MEDS ORDERED: FUROSEMIDE 40 MG/4 ML VIAL IV STA (22:29)
[2020-12-14] MEDS ORDERED: NITROGLYCERIN 2% OINT 1 INCH/GM PACK TOP ONE (22:30)
[2020-12-14] MEDS ORDERED: FUROSEMIDE 40 MG/4 ML VIAL ONE (22:30)
[2020-12-14] MEDS ORDERED: NITROGLYCERIN 2% OINT 1 INCH/GM PACK TOP STA (22:30)
[2020-12-14 22:43] LABS: ABG Base Excess 1.4 MMOL/L (-2.5-2.5); ABG HCO3 25.6 MMOL/L (20-26); ABG Oxygen Saturation 98.2 % (95-100); ABG PO2 93.4 MM HG (80-95); ABG TCO2 16.2 MMOL/L (23-27)
[2020-12-14 22:56] LABS: ABG PCO2 20.5 MM HG (35-48)
[2020-12-14] MEDS ORDERED: ACETAMINOPHEN 325 MG TABLET PO PRN (23:16)
[2020-12-14] MEDS ORDERED: DOCUSATE SODIUM 100 MG CAPSULE PO PRN (23:16)
[2020-12-14] MEDS ORDERED: ONDANSETRON 4 MG/2 ML VIAL IV PRN (23:16)
[2020-12-14] MEDS ORDERED: hydrALAZINE 20 MG/1 ML VIAL IV PRN (23:16)
[2020-12-14] MEDS ORDERED: GLUCAGON 1 MG VIAL IM PRN (23:16)
[2020-12-14] MEDS ORDERED: DEXTROSE 50% 25 GM/50 ML VIAL IV PRN (23:16)
[2020-12-14] MEDS ORDERED: LABETALOL 20 MG/4 ML SYRINGE IV STA (23:24)
[2020-12-15] MEDS ORDERED: LOPERAMIDE 2 MG CAPSULE PO PRN (00:27)
[2020-12-15] MEDS: LEVALBUTEROL 1.25 MG/3 ML NEB RESP TX SCH ×4 (00:50→20:28)
[2020-12-15] MEDS: ENOXAPARIN 40 MG/0.4 ML SYRINGE SUBCUT SCH ×2 (01:26→22:50)
[2020-12-15] MEDS: PIPERACILLIN/TAZOBACTAM 3,375 MG in SODIUM CHLORIDE 0.9% 100 ML IV SCH ×2 (01:27→08:44)
[2020-12-15] MEDS ORDERED: MAGNESIUM SULF RIDER 2 GM in PREMIX 1 EACH IV PRN (01:40)
[2020-12-15] MEDS ORDERED: POTASSIUM CHLORIDE 20 MEQ TABLET PO PRN (01:40)
[2020-12-15] MEDS ORDERED: MAGNESIUM SULF RIDER 4 GM in PREMIX 1 EACH IV PRN (01:40)
[2020-12-15 03:02] LABS: Basophils % 0.1 % (0.0-0.8); Eosinophils # 0.1 10*3/uL (0.0-0.87); Eosinophils % 0.6 % (0.00-10.9); Hematocrit 52.4 VOL% (42.0-52.0); Hemoglobin 18.2 GM/DL (14.0-18.0); Immature Granulocytes % 0.2 %; Immature Granulocytes Absolute 0.02 #; Lymphocytes # 0.2 10*3/uL (1.4-4.0); Lymphocytes % 2.9 % (21.2-54.2); Mean Corpuscular HGB Conc 34.7 GM/DL (32-36); Mean Corpuscular Volume 95.8 FL (87-102); Mean Platelet Volume 10.3 FL (9.6-12.0); Monocytes % 1.6 % (1.7-12.7); Neutrophils % 94.6 % (38.7-73.9); Platelet Count 190 T/CUMM (130-400); Red Blood Count 5.47 MC/CUMM (3.8-5.5); Red Cell Distribution Width 15.3 % (9.3-17.3); White Blood Count 8.2 T/CUMM (4-12)
[2020-12-15 03:26] LABS: Albumin 3.8 G/DL (3.4-5.0); Bilirubin,Total 0.9 MG/DL (0.2-1.0); Calcium 8.6 MG/DL (8.5-10.1); Osmolality,Calculated 278.4 MOS/KG (273-304)
[2020-12-15 06:55] LABS: Lymphocytes 2 % (20-55); Platelet Estimate Normal; Segmented Neutrophils 98 % (50-85); Total Cells Counted 100
[2020-12-15 06:56] LABS: Microcytosis Slight; Polychromasia Slight; Stomatocytes Slight
[2020-12-15] MEDS ORDERED: methylPREDNISolone SOD SUC 40 MG/1 ML VIAL IV SCH (08:00)
[2020-12-15] MEDS: METOPROLOL TARTRATE 25 MG TABLET PO SCH ×2 (08:44→21:45)
[2020-12-15] MEDS: FLUTICASONE/SALMETEROL 500-50 DISKUS 14 DOSE INH SCH ×2 (08:44→21:42)
[2020-12-15] MEDS: CYCLOBENZAPRINE 10 MG TABLET PO SCH (08:44)
[2020-12-15] MEDS: FOLIC ACID 1 MG TABLET PO SCH (08:44)
[2020-12-15] MEDS: TAMSULOSIN 0.4 MG CAPSULE PO SCH ×2 (08:44→21:45)
[2020-12-15] MEDS: VERAPAMIL SR 180 MG TABLET PO SCH (08:44)
[2020-12-15] MEDS: PANTOPRAZOLE 40 MG TABLET PO SCH (08:45)
[2020-12-15] MEDS: FINASTERIDE 5 MG TABLET PO SCH (08:45)
[2020-12-15] MEDS: THIAMINE 100 MG TABLET PO SCH ×2 (08:45→21:45)
[2020-12-15] MEDS: OFLOXACIN 0.3% OPH SOLN 5 ML BOTTLE BOTH EYES SCH ×2 (08:45→21:42)
[2020-12-15] MEDS: DOXYCYCLINE HYCLATE INJ 100 MG in SODIUM CHLORIDE 0.9% 100 ML IV SCH (13:20)
[2020-12-15] MEDS: AZITHROMYCIN 250 MG TABLET PO SCH (13:20)
[2020-12-15] MEDS: methylPREDNISolone SOD SUC 40 MG/1 ML VIAL IV SCH (21:42)
[2020-12-15] MEDS: LEVOFLOXACIN INJ 750 MG in PREMIX 1 EACH IV SCH (21:46)
[2020-12-16] MEDS: DOXYCYCLINE HYCLATE INJ 100 MG in SODIUM CHLORIDE 0.9% 100 ML IV SCH ×3 (00:19→23:06)
[2020-12-16] MEDS: LEVALBUTEROL 1.25 MG/3 ML NEB RESP TX SCH ×4 (00:34→19:38)
[2020-12-16 06:28] LABS: Hematocrit 48.8 VOL% (42.0-52.0); Hemoglobin 16.2 GM/DL (14.0-18.0); Immature Granulocytes % 1.5 %; Immature Granulocytes Absolute 0.11 #; Lymphocytes # 0.3 10*3/uL (1.4-4.0); Lymphocytes % 4.1 % (21.2-54.2); Mean Corpuscular HGB Conc 33.2 GM/DL (32-36); Mean Platelet Volume 10.7 FL (9.6-12.0); Monocytes % 4.1 % (1.7-12.7); Neutrophils % 90.3 % (38.7-73.9); Platelet Count 169 T/CUMM (130-400); Red Blood Count 4.93 MC/CUMM (3.8-5.5); Red Cell Distribution Width 14.8 % (9.3-17.3); White Blood Count 7.3 T/CUMM (4-12)
[2020-12-16 06:57] LABS: Calcium 8.3 MG/DL (8.5-10.1)
[2020-12-16 07:13] LABS: Anisocytosis Slight; Band Neutrophils 11 % (0-10); Lymphocytes 4 % (20-55); Macrocytosis 1+; Platelet Estimate Normal; Segmented Neutrophils 80 % (50-85); Total Cells Counted 100
[2020-12-16 07:22] LABS: Albumin 3.3 G/DL (3.4-5.0); Calcium 8.8 MG/DL (8.5-10.1); Total Protein 7.1 G/DL (6.4-8.3)
[2020-12-16] MEDS: METOPROLOL TARTRATE 25 MG TABLET PO SCH ×2 (09:25→21:12)
[2020-12-16] MEDS: VERAPAMIL SR 180 MG TABLET PO SCH (09:25)
[2020-12-16] MEDS: methylPREDNISolone SOD SUC 40 MG/1 ML VIAL IV SCH ×2 (09:25→21:12)
[2020-12-16] MEDS: CYCLOBENZAPRINE 10 MG TABLET PO SCH (09:25)
[2020-12-16] MEDS: FINASTERIDE 5 MG TABLET PO SCH (09:25)
[2020-12-16] MEDS: TAMSULOSIN 0.4 MG CAPSULE PO SCH ×2 (09:25→21:12)
[2020-12-16] MEDS: PANTOPRAZOLE 40 MG TABLET PO SCH (09:25)
[2020-12-16] MEDS: FOLIC ACID 1 MG TABLET PO SCH (09:25)
[2020-12-16] MEDS: FLUTICASONE/SALMETEROL 500-50 DISKUS 14 DOSE INH SCH ×2 (09:25→21:11)
[2020-12-16] MEDS: OFLOXACIN 0.3% OPH SOLN 5 ML BOTTLE BOTH EYES SCH ×2 (09:25→21:12)
[2020-12-16] MEDS: AZITHROMYCIN 250 MG TABLET PO SCH (09:26)
[2020-12-16] MEDS: THIAMINE 100 MG TABLET PO SCH ×2 (09:26→21:12)
[2020-12-16] MEDS: LEVOFLOXACIN INJ 750 MG in PREMIX 1 EACH IV SCH (21:12)
[2020-12-16] MEDS: ENOXAPARIN 40 MG/0.4 ML SYRINGE SUBCUT SCH (23:06)
[2020-12-17 06:21] LABS: Hematocrit 48.1 VOL% (42.0-52.0); Hemoglobin 15.8 GM/DL (14.0-18.0); Immature Granulocytes % 0.4 %; Immature Granulocytes Absolute 0.02 #; Lymphocytes # 0.2 10*3/uL (1.4-4.0); Lymphocytes % 3.7 % (21.2-54.2); Mean Corpuscular HGB Conc 32.8 GM/DL (32-36); Mean Corpuscular Volume 99.6 FL (87-102); Monocytes % 4.1 % (1.7-12.7); Neutrophils % 91.8 % (38.7-73.9); Platelet Count 147 T/CUMM (130-400); Red Blood Count 4.83 MC/CUMM (3.8-5.5); Red Cell Distribution Width 14.4 % (9.3-17.3); White Blood Count 5.7 T/CUMM (4-12)
[2020-12-17 06:35] LABS: Calcium 8.5 MG/DL (8.5-10.1); Osmolality,Calculated 278.1 MOS/KG (273-304)
[2020-12-17 06:46] LABS: Lymphocytes 6 % (20-55); Platelet Estimate Adequate; Segmented Neutrophils 92 % (50-85); Total Cells Counted 100
[2020-12-17] MEDS: LEVALBUTEROL 1.25 MG/3 ML NEB RESP TX SCH ×3 (07:28→13:03)
[2020-12-17] MEDS: THIAMINE 100 MG TABLET PO SCH ×2 (09:33→20:54)
[2020-12-17] MEDS: CYCLOBENZAPRINE 10 MG TABLET PO SCH (09:33)
[2020-12-17] MEDS: METOPROLOL TARTRATE 25 MG TABLET PO SCH ×2 (09:33→20:54)
[2020-12-17] MEDS: AZITHROMYCIN 250 MG TABLET PO SCH (09:33)
[2020-12-17] MEDS: TAMSULOSIN 0.4 MG CAPSULE PO SCH ×2 (09:33→20:54)
[2020-12-17] MEDS: OFLOXACIN 0.3% OPH SOLN 5 ML BOTTLE BOTH EYES SCH ×2 (09:34→20:54)
[2020-12-17] MEDS: FOLIC ACID 1 MG TABLET PO SCH (09:34)
[2020-12-17] MEDS: PANTOPRAZOLE 40 MG TABLET PO SCH (09:34)
[2020-12-17] MEDS: methylPREDNISolone SOD SUC 40 MG/1 ML VIAL IV SCH (09:34)
[2020-12-17] MEDS: FINASTERIDE 5 MG TABLET PO SCH (09:34)
[2020-12-17] MEDS: VERAPAMIL SR 180 MG TABLET PO SCH (09:34)
[2020-12-17] MEDS: DOXYCYCLINE HYCLATE INJ 100 MG in SODIUM CHLORIDE 0.9% 100 ML IV SCH (11:58)
[2020-12-17] MEDS: FLUTICASONE/SALMETEROL 500-50 DISKUS 14 DOSE INH SCH ×2 (19:04→20:53)
[2020-12-17] MEDS: LEVOFLOXACIN INJ 750 MG in PREMIX 1 EACH IV SCH (20:54)
[2020-12-17] MEDS: ENOXAPARIN 40 MG/0.4 ML SYRINGE SUBCUT SCH (22:13)
[2020-12-18] MEDS: DOXYCYCLINE HYCLATE INJ 100 MG in SODIUM CHLORIDE 0.9% 100 ML IV SCH ×2 (00:46→12:03)
[2020-12-18] MEDS: CYCLOBENZAPRINE 10 MG TABLET PO SCH (09:17)
[2020-12-18] MEDS: predniSONE 20 MG TABLET PO SCH (09:17)
[2020-12-18] MEDS: METOPROLOL TARTRATE 25 MG TABLET PO SCH ×2 (09:18→21:17)
[2020-12-18] MEDS: VERAPAMIL SR 180 MG TABLET PO SCH (09:18)
[2020-12-18] MEDS: THIAMINE 100 MG TABLET PO SCH ×2 (09:18→21:17)
[2020-12-18] MEDS: TAMSULOSIN 0.4 MG CAPSULE PO SCH ×2 (09:18→21:17)
[2020-12-18] MEDS: PANTOPRAZOLE 40 MG TABLET PO SCH (09:18)
[2020-12-18] MEDS: FLUTICASONE/SALMETEROL 500-50 DISKUS 14 DOSE INH SCH ×2 (09:18→21:21)
[2020-12-18] MEDS: FOLIC ACID 1 MG TABLET PO SCH (09:18)
[2020-12-18] MEDS: FINASTERIDE 5 MG TABLET PO SCH (09:18)
[2020-12-18] MEDS: OFLOXACIN 0.3% OPH SOLN 5 ML BOTTLE BOTH EYES SCH ×2 (09:19→21:22)
[2020-12-19] MEDS: ENOXAPARIN 40 MG/0.4 ML SYRINGE SUBCUT SCH (00:43)
[2020-12-19] MEDS: DOXYCYCLINE HYCLATE INJ 100 MG in SODIUM CHLORIDE 0.9% 100 ML IV SCH (00:43)
[2020-12-19 08:07] VITALS: BP 167/104
[2020-12-19] MEDS: FOLIC ACID 1 MG TABLET PO SCH (08:31)
[2020-12-19] MEDS: CYCLOBENZAPRINE 10 MG TABLET PO SCH (08:31)
[2020-12-19] MEDS: FINASTERIDE 5 MG TABLET PO SCH (08:31)
[2020-12-19] MEDS: METOPROLOL TARTRATE 25 MG TABLET PO SCH (08:31)
[2020-12-19] MEDS: VERAPAMIL SR 180 MG TABLET PO SCH (08:31)
[2020-12-19] MEDS: predniSONE 20 MG TABLET PO SCH (08:31)
[2020-12-19] MEDS: PANTOPRAZOLE 40 MG TABLET PO SCH (08:31)
[2020-12-19] MEDS: TAMSULOSIN 0.4 MG CAPSULE PO SCH (08:31)
[2020-12-19] MEDS: THIAMINE 100 MG TABLET PO SCH (08:32)
[2020-12-19] MEDS: FLUTICASONE/SALMETEROL 500-50 DISKUS 14 DOSE INH SCH (08:33)
[2020-12-19] MEDS: OFLOXACIN 0.3% OPH SOLN 5 ML BOTTLE BOTH EYES SCH (08:34)
== END 2020-12-19 10:41 | disposition home or self-care (01) | DRG 194 ==
LOC: EDBD → EDUNIT# → N.ED 18:31 → N.EDINP 18:31 → N.3E 12-15 00:02 → SUATTDRO 12-15 01:16
PROVIDERS: ADMIT Emergency Medicine; ATTEND Internal Medicine

== ENCOUNTER 2021-01-01 10:26 | Observation (INO) ==
[2021-01-01] MEDS ORDERED: ASPIRIN 325 MG TABLET PO STA (11:22)
[2021-01-01] MEDS ORDERED: NITROGLYCERIN SL 0.4 MG TABLET SL PRN (11:22)
[2021-01-01] MEDS ORDERED: METOPROLOL TARTRATE 5 MG/5 ML VIAL IV STA ×2 (11:25→13:25)
[2021-01-01 11:29] LABS: Basophils % 0.3 % (0.0-0.8); Eosinophils # 0.1 10*3/uL (0.0-0.87); Eosinophils % 0.5 % (0.00-10.9); Hematocrit 53.3 VOL% (42.0-52.0); Hemoglobin 17.9 GM/DL (14.0-18.0); Immature Granulocytes % 0.4 %; Immature Granulocytes Absolute 0.05 #; Lymphocytes % 7.4 % (21.2-54.2); Mean Corpuscular HGB Conc 33.6 GM/DL (32-36); Mean Corpuscular Volume 99.6 FL (87-102); Mean Platelet Volume 10.3 FL (9.6-12.0); Monocytes % 5.4 % (1.7-12.7); Platelet Count 217 T/CUMM (130-400); Red Blood Count 5.35 MC/CUMM (3.8-5.5); Red Cell Distribution Width 13.6 % (9.3-17.3); White Blood Count 13.2 T/CUMM (4-12)
[2021-01-01 11:43] LABS: Bilirubin,Total 0.6 MG/DL (0.2-1.0); Potassium 3.8 MMOL/L (3.5-5.1); Total Protein 7.4 G/DL (6.4-8.3)
[2021-01-01] MEDS ORDERED: DEXTROSE 50% 25 GM/50 ML VIAL IV PRN (15:10)
[2021-01-01] MEDS ORDERED: GLUCAGON 1 MG VIAL IM PRN (15:10)
[2021-01-01] MEDS ORDERED: ENOXAPARIN 40 MG/0.4 ML SYRINGE SUBCUT SCH (15:30)
[2021-01-01] MEDS ORDERED: hydrALAZINE 20 MG/1 ML VIAL IV PRN (16:00)
[2021-01-01] MEDS: VERAPAMIL SR 180 MG TABLET PO SCH (17:53)
[2021-01-01] MEDS: METOPROLOL TARTRATE 25 MG TABLET PO SCH (17:53)
[2021-01-01] MEDS: FINASTERIDE 5 MG TABLET PO SCH (17:53)
[2021-01-01] MEDS: PANTOPRAZOLE 40 MG TABLET PO SCH (17:53)
[2021-01-01] MEDS: ALBUTEROL/IPRATROPIUM 3 ML NEB RESP TX SCH (20:34)
[2021-01-01] MEDS: LORazepam 1 MG TABLET PO SCH (21:02)
[2021-01-02] MEDS: ALBUTEROL/IPRATROPIUM 3 ML NEB RESP TX SCH ×5 (00:24→14:17)
[2021-01-02] MEDS: METOPROLOL TARTRATE 25 MG TABLET PO SCH ×3 (00:42→13:11)
[2021-01-02 05:42] LABS: Basophils % 0.3 % (0.0-0.8); Eosinophils % 0.5 % (0.00-10.9); Hemoglobin 16.6 GM/DL (14.0-18.0); Immature Granulocytes % 0.1 %; Immature Granulocytes Absolute 0.01 #; Lymphocytes # 0.8 10*3/uL (1.4-4.0); Lymphocytes % 10.4 % (21.2-54.2); Mean Corpuscular HGB Conc 33.2 GM/DL (32-36); Mean Platelet Volume 10.6 FL (9.6-12.0); Monocytes % 9.1 % (1.7-12.7); Neutrophils % 79.6 % (38.7-73.9); Platelet Count 194 T/CUMM (130-400); Red Blood Count 5.05 MC/CUMM (3.8-5.5); Red Cell Distribution Width 13.3 % (9.3-17.3); White Blood Count 7.3 T/CUMM (4-12)
[2021-01-02 06:02] LABS: Albumin 3.2 G/DL (3.4-5.0); Bilirubin,Total 1.6 MG/DL (0.2-1.0); Calcium 8.9 MG/DL (8.5-10.1); Potassium 3.3 MMOL/L (3.5-5.1); Risk Ratio 2.39; Total Protein 6.9 G/DL (6.4-8.3); VLDL CHOLESTEROL 16.6 MG/DL
[2021-01-02] MEDS ORDERED: POTASSIUM CHLORIDE RIDER 10 MEQ in PREMIX 1 EACH IV PRN (07:07)
[2021-01-02] MEDS ORDERED: MAGNESIUM SULF RIDER 2 GM in PREMIX 1 EACH IV PRN (07:07)
[2021-01-02] MEDS ORDERED: MAGNESIUM SULF RIDER 4 GM in PREMIX 1 EACH IV PRN (07:07)
[2021-01-02] MEDS: VERAPAMIL SR 180 MG TABLET PO SCH (08:44)
[2021-01-02] MEDS: FINASTERIDE 5 MG TABLET PO SCH (08:44)
[2021-01-02] MEDS: PANTOPRAZOLE 40 MG TABLET PO SCH (08:44)
[2021-01-02] MEDS: LORazepam 1 MG TABLET PO SCH (08:44)
[2021-01-02] MEDS: POTASSIUM CHLORIDE 20 MEQ TABLET PO PRN ×2 (08:44→13:46)
[2021-01-02 12:14] VITALS: BP 144/86
== END 2021-01-02 14:19 | disposition home health service (06) ==
LOC: N.EDINP 10:26 → N.ED 10:26 → N.TELES 15:46
PROVIDERS: ADMIT Internal Medicine; ATTEND Internal Medicine

== ENCOUNTER 2021-02-11 02:23 | Observation (INO) ==
[2021-02-11] MEDS ORDERED: ONDANSETRON 4 MG/2 ML VIAL IV ONE (03:15)
[2021-02-11] MEDS ORDERED: MORPHINE 4 MG/1 ML VIAL IV STA (03:15)
[2021-02-11 03:46] LABS: Basophils # 0.1 10*3/uL (0.0-0.2); Basophils % 0.5 % (0.0-0.8); Eosinophils # 0.1 10*3/uL (0.0-0.87); Eosinophils % 0.6 % (0.00-10.9); Hematocrit 52.8 VOL% (42.0-52.0); Hemoglobin 17.6 GM/DL (14.0-18.0); Immature Granulocytes % 0.3 %; Immature Granulocytes Absolute 0.03 #; Lymphocytes # 0.9 10*3/uL (1.4-4.0); Lymphocytes % 8.9 % (21.2-54.2); Mean Corpuscular HGB Conc 33.3 GM/DL (32-36); Mean Corpuscular Volume 89.5 FL (87-102); Mean Platelet Volume 10.6 FL (9.6-12.0); Monocytes % 9.5 % (1.7-12.7); Neutrophils % 80.2 % (38.7-73.9); Platelet Count 189 T/CUMM (130-400); Red Cell Distribution Width 13.7 % (9.3-17.3); White Blood Count 10.2 T/CUMM (4-12)
[2021-02-11] MEDS ORDERED: hydrALAZINE 20 MG/1 ML VIAL IV STA (04:00)
[2021-02-11 04:07] LABS: Albumin 3.5 G/DL (3.4-5.0); Bilirubin,Total 1.2 MG/DL (0.2-1.0); Osmolality,Calculated 278.5 MOS/KG (273-304); Total Protein 6.7 G/DL (5.0-7.5)
[2021-02-11 04:23] LABS: Hypochromasia Slight; Microcytosis Slight
[2021-02-11 04:24] LABS: Platelet Estimate Adequate
[2021-02-11] MEDS ORDERED: LEVOFLOXACIN INJ 500 MG in PREMIX 1 EACH IV STA (05:07)
[2021-02-11] MEDS ORDERED: FUROSEMIDE 40 MG/4 ML VIAL IV STA ×2 (05:07→05:18)
[2021-02-11] MEDS ORDERED: DEXTROSE 50% 25 GM/50 ML VIAL IV PRN (08:07)
[2021-02-11] MEDS ORDERED: ACETAMINOPHEN 325 MG TABLET PO PRN (08:07)
[2021-02-11] MEDS ORDERED: GLUCAGON 1 MG VIAL IM PRN (08:07)
[2021-02-11] MEDS ORDERED: ONDANSETRON 4 MG/2 ML VIAL IV PRN (08:07)
[2021-02-11] MEDS: ENOXAPARIN 40 MG/0.4 ML SYRINGE SUBCUT SCH (08:31)
[2021-02-11] MEDS: guaiFENesin/DM ER 600-30 MG TABLET PO SCH ×2 (08:44→20:10)
[2021-02-11] MEDS ORDERED: LORazepam 0.5 MG TABLET PO PRN (10:16)
[2021-02-11] MEDS ORDERED: ALBUTEROL 2.5 MG/3 ML NEB RESP TX PRN (10:23)
[2021-02-11] MEDS: METOPROLOL TARTRATE 50 MG TABLET PO SCH ×2 (12:25→21:54)
[2021-02-11] MEDS: ALBUTEROL/IPRATROPIUM 3 ML NEB RESP TX SCH ×2 (14:07→20:00)
[2021-02-11] MEDS: TAMSULOSIN 0.4 MG CAPSULE PO SCH (20:10)
[2021-02-11] MEDS: CYPROHEPTADINE 4 MG TABLET PO SCH (20:14)
[2021-02-12] MEDS: ALBUTEROL/IPRATROPIUM 3 ML NEB RESP TX SCH ×2 (00:58→08:02)
[2021-02-12] MEDS ORDERED: LEVOFLOXACIN INJ 750 MG in PREMIX 1 EACH IV SCH (06:00)
[2021-02-12 06:29] LABS: Basophils % 0.5 % (0.0-0.8); Eosinophils # 0.1 10*3/uL (0.0-0.87); Eosinophils % 0.8 % (0.00-10.9); Hematocrit 56.5 VOL% (42.0-52.0); Hemoglobin 18.6 GM/DL (14.0-18.0); Immature Granulocytes % 0.3 %; Immature Granulocytes Absolute 0.02 #; Lymphocytes # 1.1 10*3/uL (1.4-4.0); Lymphocytes % 14.2 % (21.2-54.2); Mean Corpuscular HGB Conc 32.9 GM/DL (32-36); Mean Corpuscular Volume 90.7 FL (87-102); Mean Platelet Volume 10.9 FL (9.6-12.0); Monocytes % 15.2 % (1.7-12.7); Platelet Count 214 T/CUMM (130-400); Red Blood Count 6.23 MC/CUMM (3.8-5.5); Red Cell Distribution Width 14.3 % (9.3-17.3)
[2021-02-12 06:47] LABS: Calcium 9.3 MG/DL (8.5-10.1); Osmolality,Calculated 274.1 MOS/KG (273-304)
[2021-02-12] MEDS ORDERED: POTASSIUM CHLORIDE 20 MEQ TABLET PO ONE (08:33)
[2021-02-12] MEDS ORDERED: METOPROLOL TARTRATE 25 MG TABLET PO SCH (08:34)
[2021-02-12] MEDS ORDERED: methylPREDNISolone 4 MG TABLET PO SCH (09:00)
[2021-02-12] MEDS ORDERED: MONTELUKAST 10 MG TABLET PO SCH (09:00)
[2021-02-12] MEDS ORDERED: PANTOPRAZOLE 40 MG TABLET PO SCH (09:00)
[2021-02-12] MEDS ORDERED: VERAPAMIL SR 180 MG TABLET PO SCH (09:00)
[2021-02-12] MEDS ORDERED: FOLIC ACID 1 MG TABLET PO SCH (09:00)
[2021-02-12] MEDS: guaiFENesin/DM ER 600-30 MG TABLET PO SCH (09:25)
[2021-02-12] MEDS: CYPROHEPTADINE 4 MG TABLET PO SCH (09:25)
[2021-02-12] MEDS: TAMSULOSIN 0.4 MG CAPSULE PO SCH (09:27)
[2021-02-12] MEDS: ENOXAPARIN 40 MG/0.4 ML SYRINGE SUBCUT SCH (09:28)
[2021-02-12 12:51] VITALS: BP 110/75
== END 2021-02-12 14:57 | disposition home or self-care (01) ==
LOC: EDUNIT# → N.ED 02:23 → N.EDINP 07:53 → INTOOBSV 07:53 → N.4E 08:42
PROVIDERS: ADMIT Hospitalist; ATTEND Hospitalist

== ENCOUNTER 2021-07-22 13:31 | Observation (INO) ==
[2021-07-22] MEDS ORDERED: SODIUM CHLORIDE 0.9% 1,000 ML IV STA (17:18)
[2021-07-22 17:51] LABS: Basophils % 0.3 % (0.0-0.8); Eosinophils # 0.1 10*3/uL (0.0-0.87); Eosinophils % 1.3 % (0.00-10.9); Hematocrit 56.5 VOL% (42.0-52.0); Hemoglobin 18.1 GM/DL (14.0-18.0); Immature Granulocytes % 0.3 %; Immature Granulocytes Absolute 0.02 #; Lymphocytes % 15.6 % (21.2-54.2); Mean Corpuscular Volume 95.4 FL (87-102); Mean Platelet Volume 10.8 FL (9.6-12.0); Monocytes % 13.5 % (1.7-12.7); Platelet Count 243 T/CUMM (130-400); Red Blood Count 5.92 MC/CUMM (3.8-5.5); Red Cell Distribution Width 13.4 % (9.3-17.3); White Blood Count 6.2 T/CUMM (4-12)
[2021-07-22 18:11] LABS: Platelet Estimate Adequate
[2021-07-22 18:30] LABS: Alanine Aminotransferase 23 U/L (16-61); Albumin 3.7 G/DL (3.4-5.0); Alkaline Phosphatase 70 U/L (45-117); Aspartate Amino Transferase 21 U/L (0-37); Blood Urea Nitrogen 12 MG/DL (7-18); Calcium 9.6 MG/DL (8.5-10.1); Carbon Dioxide 30 MMOL/L (21-32); Estimated Glom Filtration Rate 115 ML/MIN; Glucose 105 MG/DL (74-106); Osmolality,Calculated 276.5 MOS/KG (273-304); Potassium 4.2 MMOL/L (3.5-5.1); Sodium 139 MMOL/L (136-145); Total Protein 7.8 G/DL (6.4-8.2)
[2021-07-22 18:55] LABS: INR 1.1; PT Patient Result 11.8 SECS (10.5-12.0); Partial Thromboplastin Time 31.4 SECS (23.9-33.8)
[2021-07-22] MEDS ORDERED: ENOXAPARIN 100 MG/ML SYRINGE SUBCUT STA (19:14)
[2021-07-22] MEDS ORDERED: ONDANSETRON 4 MG/2 ML VIAL IV PRN (19:37)
[2021-07-22] MEDS ORDERED: ACETAMINOPHEN 325 MG TABLET PO PRN (19:37)
[2021-07-22] MEDS ORDERED: ALBUTEROL/IPRATROPIUM 3 ML NEB RESP TX PRN (19:48)
[2021-07-22] MEDS ORDERED: hydrALAZINE 20 MG/1 ML VIAL IV PRN (21:19)
[2021-07-22] MEDS: GABAPENTIN 100 MG CAPSULE PO SCH (21:35)
[2021-07-22] MEDS: METOPROLOL SUCCINATE XL 50 MG TABLET PO SCH (21:35)
[2021-07-22] MEDS: TAMSULOSIN 0.4 MG CAPSULE PO SCH (21:35)
[2021-07-22] MEDS: FLUTICASONE/SALMETEROL 500-50 DISKUS 14 DOSE INH SCH (22:38)
[2021-07-22] MEDS: BUDESONIDE/FORMOTEROL 160-4.5 INHALER 6 GM INH SCH (22:39)
[2021-07-23 06:55] LABS: Basophils % 0.7 % (0.0-0.8); Eosinophils # 0.1 10*3/uL (0.0-0.87); Eosinophils % 1.8 % (0.00-10.9); Hematocrit 53.2 VOL% (42.0-52.0); Hemoglobin 17.5 GM/DL (14.0-18.0); Immature Granulocytes % 0.2 %; Immature Granulocytes Absolute 0.01 #; Lymphocytes # 1.1 10*3/uL (1.4-4.0); Lymphocytes % 20.9 % (21.2-54.2); Mean Corpuscular HGB Conc 32.9 GM/DL (32-36); Mean Corpuscular Volume 95.3 FL (87-102); Mean Platelet Volume 10.5 FL (9.6-12.0); Monocytes % 14.7 % (1.7-12.7); Neutrophils % 61.7 % (38.7-73.9); Platelet Count 211 T/CUMM (130-400); Red Blood Count 5.58 MC/CUMM (3.8-5.5); Red Cell Distribution Width 13.3 % (9.3-17.3); White Blood Count 5.5 T/CUMM (4-12)
[2021-07-23] MEDS ORDERED: HEPARIN DRIP 25,000 UNITS/500 ML PREMIX IV SCH (07:15)
[2021-07-23 07:17] LABS: Albumin 3.3 G/DL (3.4-5.0); Bilirubin,Total 0.9 MG/DL (0.20-1.00); Calcium 9.3 MG/DL (8.5-10.1); Osmolality,Calculated 275.5 MOS/KG (273-304); Potassium 4.8 MMOL/L (3.5-5.1); Total Protein 7.1 G/DL (6.4-8.2)
[2021-07-23] MEDS ORDERED: VERAPAMIL SR 180 MG TABLET PO SCH (09:00)
[2021-07-23] MEDS ORDERED: PANTOPRAZOLE 40 MG TABLET PO SCH (09:00)
[2021-07-23] MEDS ORDERED: MONTELUKAST 10 MG TABLET PO SCH (09:00)
[2021-07-23] MEDS ORDERED: FOLIC ACID 1 MG TABLET PO SCH (09:00)
[2021-07-23] MEDS: BUDESONIDE/FORMOTEROL 160-4.5 INHALER 6 GM INH SCH (09:44)
[2021-07-23] MEDS: METOPROLOL SUCCINATE XL 50 MG TABLET PO SCH (09:44)
[2021-07-23] MEDS: GABAPENTIN 100 MG CAPSULE PO SCH ×2 (09:44→15:07)
[2021-07-23] MEDS: FLUTICASONE/SALMETEROL 500-50 DISKUS 14 DOSE INH SCH (09:44)
[2021-07-23] MEDS: TAMSULOSIN 0.4 MG CAPSULE PO SCH (09:44)
[2021-07-23] MEDS ORDERED: APIXABAN 5 MG TABLET PO SCH (13:00)
[2021-07-23 14:43] VITALS: BP 110/66
== END 2021-07-23 16:00 | disposition home or self-care (01) ==
LOC: N.ED 13:31 → N.EDINP 13:31 → N.TELEN 20:45
PROVIDERS: ADMIT Internal Medicine; ATTEND Internal Medicine

== ENCOUNTER 2022-01-17 14:04 | Observation (INO) ==
[2022-01-17] MEDS ORDERED: ONDANSETRON 4 MG/2 ML VIAL IV STA (14:41)
[2022-01-17] MEDS ORDERED: HYDROmorphone 2 MG/1 ML VIAL IV STA ×3 (14:41→18:50)
[2022-01-17 15:20] LABS: Basophils % 0.4 % (0.0-0.8); Eosinophils # 0.1 10*3/uL (0.0-0.87); Eosinophils % 1.1 % (0.00-10.9); Hematocrit 50.3 VOL% (42.0-52.0); Hemoglobin 16.8 GM/DL (14.0-18.0); Immature Granulocytes % 0.2 %; Immature Granulocytes Absolute 0.01 #; Lymphocytes # 1.3 10*3/uL (1.4-4.0); Lymphocytes % 27.5 % (21.2-54.2); Mean Corpuscular HGB Conc 33.4 GM/DL (32-36); Mean Corpuscular Volume 96.5 FL (87-102); Mean Platelet Volume 10.6 FL (9.6-12.0); Monocytes % 12.1 % (1.7-12.7); Neutrophils % 58.7 % (38.7-73.9); Platelet Count 167 T/CUMM (130-400); Red Blood Count 5.21 MC/CUMM (3.8-5.5); White Blood Count 4.6 T/CUMM (4-12)
[2022-01-17 15:43] LABS: Alanine Aminotransferase 20 U/L (16-61); Albumin 3.5 G/DL (3.4-5.0); Alkaline Phosphatase 86 U/L (45-117); Aspartate Amino Transferase 20 U/L (0-37); Blood Urea Nitrogen 10 MG/DL (7-18); Calcium 9.1 MG/DL (8.5-10.1); Carbon Dioxide 22 MMOL/L (21-32); Estimated Glom Filtration Rate 116 ML/MIN; Glucose 106 MG/DL (74-106); Osmolality,Calculated 271.8 MOS/KG (273-304); Potassium 3.5 MMOL/L (3.5-5.1); Sodium 137 MMOL/L (136-145); Total Protein 7.3 G/DL (6.4-8.2)
[2022-01-17] MEDS ORDERED: SODIUM CHLORIDE 0.9% 1,000 ML IV STA ×2 (17:24→20:08)
[2022-01-17] MEDS ORDERED: cefTRIAXone 1,000 MG in SODIUM CHLORIDE 0.9% 100 ML IV STA (17:24)
[2022-01-17 17:50] LABS: Bilirubin,Urine Negative (Negative); Blood, Urine Negative (Negative); Glucose,Urine (UA) Negative (Negative); Ketones,Urine Negative (Negative); Nitrite,Urine Negative (Negative); Protein,Urine Negative; RBC,Urine 2 /HPF (0-4); Sperm,Urine Occasional /HPF (Negative); Squamous Epithelial Cell,Urine Occasional /HPF (0-10); Urine Appearance CLEAR (Clear); Urine Color Yellow (Yellow); Urine Specific Gravity 1.009 (1.001-1.035); Urine Urobilinogen < 2.0 EU/DL (<2.0)
[2022-01-17 18:09] LABS: Barbiturates Screen,Urine Negative (Negative); Benzodiazepines Screen,Urine Negative (Negative); Cannabinoid Screen,Urine Negative (Negative); Opiate Screen,Urine Positive (Negative); Phencyclidine Screen,Urine Negative (Negative)
[2022-01-17] MEDS ORDERED: MORPHINE 2 MG/1 ML SYRINGE IV PRN (20:09)
[2022-01-17] MEDS ORDERED: ZALEPLON 5 MG CAPSULE PO PRN (20:09)
[2022-01-17] MEDS ORDERED: GLUCAGON 1 MG VIAL IM PRN (20:09)
[2022-01-17] MEDS ORDERED: NICOTINE 21 MG/24 HR PATCH TRANSDERM PRN (20:09)
[2022-01-17] MEDS ORDERED: DEXTROSE 10% 250 ML BAG IV PRN (20:09)
[2022-01-17] MEDS ORDERED: diphenhydrAMINE CAP 25 MG CAPSULE PO PRN (20:09)
[2022-01-17] MEDS ORDERED: guaiFENesin/DM ER 600-30 MG TABLET PO PRN (20:09)
[2022-01-17] MEDS ORDERED: DOCUSATE SODIUM 100 MG CAPSULE PO PRN (20:09)
[2022-01-17] MEDS ORDERED: ONDANSETRON 4 MG/2 ML VIAL IV PRN (20:09)
[2022-01-17] MEDS ORDERED: ACETAMINOPHEN 325 MG TABLET PO PRN (20:09)
[2022-01-17] MEDS ORDERED: hydrALAZINE 20 MG/1 ML VIAL IV PRN (20:09)
[2022-01-17] MEDS ORDERED: SODIUM CHLORIDE 0.9% 1,000 ML IV SCH (20:30)
[2022-01-17] MEDS: metroNIDAZOLE INJ 500 MG/100 ML PREMIX IV SCH (23:02)
[2022-01-17] MEDS: HEPARIN 5,000 UNIT/1 ML VIAL SUBCUT SCH (23:02)
[2022-01-18] MEDS: ALBUTEROL/IPRATROPIUM 3 ML NEB RESP TX SCH ×3 (00:59→14:47)
[2022-01-18 05:30] LABS: Basophils % 0.4 % (0.0-0.8); Eosinophils # 0.1 10*3/uL (0.0-0.87); Eosinophils % 1.2 % (0.00-10.9); Hematocrit 51.4 VOL% (42.0-52.0); Hemoglobin 16.7 GM/DL (14.0-18.0); Immature Granulocytes % 0.2 %; Immature Granulocytes Absolute 0.01 #; Lymphocytes % 17.7 % (21.2-54.2); Mean Corpuscular HGB Conc 32.5 GM/DL (32-36); Mean Corpuscular Volume 97.9 FL (87-102); Mean Platelet Volume 10.6 FL (9.6-12.0); Monocytes % 11.8 % (1.7-12.7); Neutrophils % 68.7 % (38.7-73.9); Platelet Count 174 T/CUMM (130-400); Red Blood Count 5.25 MC/CUMM (3.8-5.5); Red Cell Distribution Width 14.3 % (9.3-17.3); White Blood Count 5.7 T/CUMM (4-12)
[2022-01-18 05:58] LABS: Osmolality,Calculated 278.3 MOS/KG (273-304); Potassium 4.2 MMOL/L (3.5-5.1)
[2022-01-18] MEDS ORDERED: MAGNESIUM SULF RIDER 4 GM/100 ML PREMIX IV PRN (06:34)
[2022-01-18] MEDS ORDERED: MAGNESIUM SULF RIDER 2 GM/50 ML PREMIX IV PRN (06:36)
[2022-01-18] MEDS: metroNIDAZOLE INJ 500 MG/100 ML PREMIX IV SCH (07:31)
[2022-01-18] MEDS ORDERED: PANTOPRAZOLE 40 MG TABLET PO SCH (09:00)
[2022-01-18] MEDS: HEPARIN 5,000 UNIT/1 ML VIAL SUBCUT SCH (09:12)
[2022-01-18 15:43] VITALS: BP 144/79
[2022-01-18] MEDS ORDERED: cefTRIAXone 1,000 MG in SODIUM CHLORIDE 0.9% 100 ML IV SCH (21:00)
== END 2022-01-18 16:55 | disposition home or self-care (01) ==
LOC: N.EDINP 14:04 → N.ED 14:04 → N.5E 21:03
PROVIDERS: ADMIT Internal Medicine; ATTEND Internal Medicine

== ENCOUNTER 2022-03-27 01:57 | Inpatient (IN) ==
[2022-03-27] MEDS ORDERED: SODIUM CHLORIDE 0.9% 500 ML IV STA (02:36)
[2022-03-27] MEDS ORDERED: ASPIRIN 325 MG TABLET PO STA (02:36)
[2022-03-27] MEDS ORDERED: MORPHINE 2 MG/1 ML SYRINGE IV STA (02:36)
[2022-03-27] MEDS ORDERED: ONDANSETRON 4 MG/2 ML VIAL IV STA (02:36)
[2022-03-27] MEDS ORDERED: NITROGLYCERIN 2% OINT 1 INCH/GM PACK TOP STA (02:36)
[2022-03-27 02:51] LABS: Basophils # 0.1 10*3/uL (0.0-0.2); Basophils % 0.5 % (0.0-0.8); Eosinophils # 0.1 10*3/uL (0.0-0.87); Eosinophils % 0.6 % (0.00-10.9); Hematocrit 45.8 VOL% (42.0-52.0); Hemoglobin 16.2 GM/DL (14.0-18.0); Immature Granulocytes % 0.3 %; Immature Granulocytes Absolute 0.03 #; Lymphocytes # 1.5 10*3/uL (1.4-4.0); Mean Corpuscular HGB Conc 35.4 GM/DL (32-36); Mean Corpuscular Volume 93.1 FL (87-102); Mean Platelet Volume 10.9 FL (9.6-12.0); Monocytes # 0.7 10*3/uL (0.11-0.8); Monocytes % 6.1 % (1.7-12.7); Neutrophils % 79.5 % (38.7-73.9); Platelet Count 203 T/CUMM (130-400); Red Blood Count 4.92 MC/CUMM (3.8-5.5); Red Cell Distribution Width 13.9 % (9.3-17.3); White Blood Count 11.8 T/CUMM (4-12)
[2022-03-27 03:12] LABS: Albumin 4.1 G/DL (3.4-5.0); Bilirubin,Total 0.7 MG/DL (0.20-1.00); Calcium 9.2 MG/DL (8.5-10.1); Osmolality,Calculated 288.6 MOS/KG (273-304); Potassium 3.5 MMOL/L (3.5-5.1); Total Protein 7.4 G/DL (6.4-8.2)
[2022-03-27 03:13] LABS: Amylase 74 U/L (25-115)
[2022-03-27] MEDS ORDERED: SODIUM CHLORIDE 0.9% 2,150 ML IV ONE (03:18)
[2022-03-27] MEDS ORDERED: MAGNESIUM SULF RIDER 2 GM/50 ML PREMIX IV STA (03:39)
[2022-03-27] MEDS: PIPERACILLIN/TAZOBACTAM 3,375 MG in SODIUM CHLORIDE 0.9% 100 ML IV SCH ×5 (04:00→22:05)
[2022-03-27] MEDS ORDERED: MORPHINE 2 MG/1 ML SYRINGE IV PRN (04:04)
[2022-03-27] MEDS ORDERED: DEXTROSE 10% 250 ML BAG IV PRN (04:04)
[2022-03-27] MEDS ORDERED: GLUCAGON 1 MG VIAL IM PRN (04:04)
[2022-03-27] MEDS ORDERED: ONDANSETRON 4 MG/2 ML VIAL IV PRN (04:04)
[2022-03-27] MEDS ORDERED: ACETAMINOPHEN 325 MG TABLET PO PRN (04:04)
[2022-03-27 05:00] LABS: Glucose,Urine (UA) Negative (Negative); Hyaline Casts,Urine 1 /LPF (0-3); Mucus,Urine Occasional /LPF (Occasional); Protein,Urine Trace mg/dL (Negative); Squamous Epithelial Cell,Urine Occasional /HPF (0-10); Urine Appearance Clear (Clear); Urine Color Yellow (Yellow); Urine Specific Gravity > 1.030 (1.001-1.035); Urine pH 5.5 (4.5-8.0)
[2022-03-27 05:01] LABS: Bilirubin,Urine Negative (Negative); Blood, Urine Negative (Negative); Ketones,Urine TR mg/dL (Negative); Nitrite,Urine Negative (Negative)
[2022-03-27 05:29] LABS: Barbiturates Screen,Urine Negative (Negative); Benzodiazepines Screen,Urine Negative (Negative); Cannabinoid Screen,Urine Negative (Negative); Opiate Screen,Urine Negative (Negative); Phencyclidine Screen,Urine Negative (Negative)
[2022-03-27 05:38] LABS: Risk Ratio 2.1; VLDL Cholesterol 15.2 MG/DL
[2022-03-27] MEDS: LACTATED RINGERS 1,000 ML IV SCH ×3 (07:10→22:04)
[2022-03-27] MEDS: ALBUTEROL/IPRATROPIUM 3 ML NEB RESP TX SCH ×3 (07:25→19:30)
[2022-03-27] MEDS ORDERED: MAGNESIUM SULF RIDER 2 GM/50 ML PREMIX IV PRN (07:31)
[2022-03-27 07:51] LABS: Basophils % 0.3 % (0.0-0.8); Eosinophils % 0.5 % (0.00-10.9); Hematocrit 42.6 VOL% (42.0-52.0); Hemoglobin 14.5 GM/DL (14.0-18.0); Immature Granulocytes % 0.2 %; Immature Granulocytes Absolute 0.02 #; Lymphocytes # 1.1 10*3/uL (1.4-4.0); Mean Corpuscular Volume 94.7 FL (87-102); Mean Platelet Volume 10.8 FL (9.6-12.0); Monocytes # 0.6 10*3/uL (0.11-0.8); Monocytes % 7.4 % (1.7-12.7); Neutrophils % 78.6 % (38.7-73.9); Platelet Count 159 T/CUMM (130-400); White Blood Count 8.7 T/CUMM (4-12)
[2022-03-27 08:20] LABS: Calcium 8.3 MG/DL (8.5-10.1); Osmolality,Calculated 274.5 MOS/KG (273-304); Potassium 3.5 MMOL/L (3.5-5.1)
[2022-03-27] MEDS: VANCOMYCIN INJ 1,250 MG in SODIUM CHLORIDE 0.9% 250 ML IV SCH ×2 (09:00→22:01)
[2022-03-27] MEDS: PANTOPRAZOLE 40 MG TABLET PO SCH (10:54)
[2022-03-27] MEDS: APIXABAN 5 MG TABLET PO SCH ×2 (10:54→22:00)
[2022-03-27] MEDS: METOPROLOL SUCCINATE XL 50 MG TABLET PO SCH ×2 (10:54→22:00)
[2022-03-27] MEDS ORDERED: FOLIC ACID INJ 1 MG in SYRINGE 1 EACH IV SCH (15:00)
[2022-03-27] MEDS ORDERED: THIAMINE 200 MG/2 ML VIAL IV SCH (15:00)
[2022-03-27] MEDS ORDERED: MULTIVITAMIN INJ 10 ML, FOLIC ACID INJ 1 MG, THIAMINE INJ 100 MG in SODIUM CHLORIDE 0.9... IV SCH (16:00)
[2022-03-27] MEDS: LORazepam 2 MG/1 ML VIAL IV PRN (17:17)
[2022-03-27] MEDS ORDERED: ENOXAPARIN 40 MG/0.4 ML SYRINGE SUBCUT SCH (21:00)
[2022-03-27] MEDS: ATORVASTATIN 10 MG TABLET PO SCH (22:00)
[2022-03-28] MEDS: ALBUTEROL/IPRATROPIUM 3 ML NEB RESP TX SCH ×4 (00:32→18:50)
[2022-03-28] MEDS: LACTATED RINGERS 1,000 ML IV SCH (04:14)
[2022-03-28 05:03] LABS: Basophils % 0.3 % (0.0-0.8); Eosinophils # 0.3 10*3/uL (0.0-0.87); Eosinophils % 5.1 % (0.00-10.9); Hematocrit 44.3 VOL% (42.0-52.0); Hemoglobin 15.1 GM/DL (14.0-18.0); Immature Granulocytes % 0.3 %; Immature Granulocytes Absolute 0.02 #; Lymphocytes % 14.9 % (21.2-54.2); Mean Corpuscular HGB Conc 34.1 GM/DL (32-36); Mean Corpuscular Volume 94.7 FL (87-102); Mean Platelet Volume 11.2 FL (9.6-12.0); Monocytes # 0.8 10*3/uL (0.11-0.8); Monocytes % 11.2 % (1.7-12.7); Neutrophils % 68.2 % (38.7-73.9); Platelet Count 155 T/CUMM (130-400); Red Blood Count 4.68 MC/CUMM (3.8-5.5); Red Cell Distribution Width 13.8 % (9.3-17.3); White Blood Count 6.7 T/CUMM (4-12)
[2022-03-28] MEDS: PIPERACILLIN/TAZOBACTAM 3,375 MG in SODIUM CHLORIDE 0.9% 100 ML IV SCH ×3 (05:15→13:09)
[2022-03-28 05:19] LABS: Calcium 8.8 MG/DL (8.5-10.1); Potassium 3.1 MMOL/L (3.5-5.1)
[2022-03-28] MEDS: METOPROLOL SUCCINATE XL 50 MG TABLET PO SCH ×2 (09:33→20:49)
[2022-03-28] MEDS: APIXABAN 5 MG TABLET PO SCH ×2 (09:33→20:50)
[2022-03-28] MEDS: PANTOPRAZOLE 40 MG TABLET PO SCH (09:33)
[2022-03-28] MEDS: VANCOMYCIN INJ 1,250 MG in SODIUM CHLORIDE 0.9% 250 ML IV SCH ×2 (09:58→20:50)
[2022-03-28] MEDS ORDERED: MAGNESIUM SULF RIDER 2 GM/50 ML PREMIX IV ONE (10:45)
[2022-03-28] MEDS ORDERED: POTASSIUM CHLORIDE 20 MEQ TABLET PO ONE (10:45)
[2022-03-28] MEDS ORDERED: FUROSEMIDE 40 MG/4 ML VIAL IV ONE (10:45)
[2022-03-28] MEDS ORDERED: DICYCLOMINE 20 MG TABLET PO PRN (15:58)
[2022-03-28] MEDS: FUROSEMIDE 20 MG/2 ML VIAL IV SCH (16:36)
[2022-03-28] MEDS: methylPREDNISolone SOD SUC 40 MG/1 ML VIAL IV SCH (16:36)
[2022-03-28] MEDS: LORazepam 2 MG/1 ML VIAL IV PRN (17:45)
[2022-03-28] MEDS: FLUTICASONE/SALMETEROL 500-50 DISKUS 14 DOSE INH SCH (20:48)
[2022-03-28] MEDS: ATORVASTATIN 10 MG TABLET PO SCH (20:50)
[2022-03-28] MEDS ORDERED: FLUTICASONE/SALMETEROL 500-50 DISKUS 14 DOSE INH ONE (22:15)
[2022-03-29] MEDS: ALBUTEROL/IPRATROPIUM 3 ML NEB RESP TX SCH ×4 (00:32→19:24)
[2022-03-29] MEDS: methylPREDNISolone SOD SUC 40 MG/1 ML VIAL IV SCH ×3 (00:57→15:50)
[2022-03-29] MEDS: hydrALAZINE 20 MG/1 ML VIAL IV PRN (06:32)
[2022-03-29 06:35] LABS: Hemoglobin 15.3 GM/DL (14.0-18.0); Immature Granulocytes % 0.4 %; Immature Granulocytes Absolute 0.02 #; Lymphocytes # 0.2 10*3/uL (1.4-4.0); Lymphocytes % 5.2 % (21.2-54.2); Mean Corpuscular Volume 95.1 FL (87-102); Mean Platelet Volume 11.6 FL (9.6-12.0); Monocytes # 0.1 10*3/uL (0.11-0.8); Monocytes % 1.7 % (1.7-12.7); Neutrophils % 92.7 % (38.7-73.9); Platelet Count 149 T/CUMM (130-400); Red Blood Count 4.73 MC/CUMM (3.8-5.5); Red Cell Distribution Width 13.3 % (9.3-17.3); White Blood Count 4.6 T/CUMM (4-12)
[2022-03-29 06:57] LABS: Lymphocytes 5 % (20-55); Platelet Estimate Normal; Total Cells Counted 100
[2022-03-29 06:59] LABS: Calcium 9.6 MG/DL (8.5-10.1); Osmolality,Calculated 273.2 MOS/KG (273-304); Potassium 3.8 MMOL/L (3.5-5.1)
[2022-03-29] MEDS: VANCOMYCIN INJ 1,250 MG in SODIUM CHLORIDE 0.9% 250 ML IV SCH (08:48)
[2022-03-29] MEDS: FUROSEMIDE 20 MG/2 ML VIAL IV SCH ×2 (08:49→15:50)
[2022-03-29] MEDS: FLUTICASONE/SALMETEROL 500-50 DISKUS 14 DOSE INH SCH ×2 (08:49→22:17)
[2022-03-29] MEDS: METOPROLOL SUCCINATE XL 50 MG TABLET PO SCH ×2 (09:12→22:16)
[2022-03-29] MEDS: PANTOPRAZOLE 40 MG TABLET PO SCH (09:12)
[2022-03-29] MEDS: MULTIVITAMIN (CENTRUM) TABLET PO SCH (09:12)
[2022-03-29] MEDS: THIAMINE 100 MG TABLET PO SCH (09:12)
[2022-03-29] MEDS: FOLIC ACID 1 MG TABLET PO SCH (09:12)
[2022-03-29] MEDS: APIXABAN 5 MG TABLET PO SCH ×2 (09:12→22:16)
[2022-03-29] MEDS: LORazepam 2 MG/1 ML VIAL IV PRN ×2 (11:09→22:16)
[2022-03-29] MEDS: NICOTINE 21 MG/24 HR PATCH TRANSDERM SCH (11:09)
[2022-03-29] MEDS: PIPERACILLIN/TAZOBACTAM 3,375 MG in SODIUM CHLORIDE 0.9% 100 ML IV SCH ×3 (11:14→15:49)
[2022-03-29] MEDS ORDERED: HALOPERIDOL 5 MG/ML AMP IM PRN (11:20)
[2022-03-29] MEDS: POTASSIUM CHLORIDE INJ 10 MEQ, MAGNESIUM SULF INJ 1 GM in SODIUM CHLORIDE 0.45% 1,000 ML IV SCH (14:37)
[2022-03-29] MEDS: ATORVASTATIN 10 MG TABLET PO SCH (22:16)
[2022-03-30] MEDS: ALBUTEROL/IPRATROPIUM 3 ML NEB RESP TX SCH ×4 (00:08→19:50)
[2022-03-30] MEDS: methylPREDNISolone SOD SUC 40 MG/1 ML VIAL IV SCH ×4 (00:53→23:49)
[2022-03-30] MEDS: PIPERACILLIN/TAZOBACTAM 3,375 MG in SODIUM CHLORIDE 0.9% 100 ML IV SCH ×4 (00:53→23:48)
[2022-03-30] MEDS: POTASSIUM CHLORIDE INJ 10 MEQ, MAGNESIUM SULF INJ 1 GM in SODIUM CHLORIDE 0.45% 1,000 ML IV SCH ×3 (02:25→20:15)
[2022-03-30] MEDS: VANCOMYCIN INJ 1,250 MG in SODIUM CHLORIDE 0.9% 250 ML IV SCH ×2 (04:40→22:12)
[2022-03-30 06:30] LABS: Basophils % 0.1 % (0.0-0.8); Hematocrit 42.3 VOL% (42.0-52.0); Hemoglobin 14.4 GM/DL (14.0-18.0); Immature Granulocytes % 0.5 %; Immature Granulocytes Absolute 0.05 #; Lymphocytes # 0.4 10*3/uL (1.4-4.0); Lymphocytes % 3.4 % (21.2-54.2); Mean Corpuscular Volume 94.2 FL (87-102); Mean Platelet Volume 11.7 FL (9.6-12.0); Monocytes # 0.7 10*3/uL (0.11-0.8); Monocytes % 6.5 % (1.7-12.7); Neutrophils % 89.5 % (38.7-73.9); Platelet Count 153 T/CUMM (130-400); Red Blood Count 4.49 MC/CUMM (3.8-5.5); Red Cell Distribution Width 13.6 % (9.3-17.3); White Blood Count 10.8 T/CUMM (4-12)
[2022-03-30 06:54] LABS: Lymphocytes 4 % (20-55); Total Cells Counted 100
[2022-03-30 06:55] LABS: Hypochromia Slight
[2022-03-30 06:56] LABS: Platelet Estimate Normal
[2022-03-30 07:01] LABS: Calcium 9.1 MG/DL (8.5-10.1); Potassium 3.3 MMOL/L (3.5-5.1)
[2022-03-30] MEDS: FUROSEMIDE 20 MG/2 ML VIAL IV SCH ×2 (09:10→15:50)
[2022-03-30] MEDS: PANTOPRAZOLE 40 MG TABLET PO SCH (09:11)
[2022-03-30] MEDS: THIAMINE 100 MG TABLET PO SCH (09:11)
[2022-03-30] MEDS: NICOTINE 21 MG/24 HR PATCH TRANSDERM SCH (09:11)
[2022-03-30] MEDS: MULTIVITAMIN (CENTRUM) TABLET PO SCH (09:12)
[2022-03-30] MEDS: METOPROLOL SUCCINATE XL 50 MG TABLET PO SCH ×2 (09:12→20:13)
[2022-03-30] MEDS: APIXABAN 5 MG TABLET PO SCH ×2 (09:12→20:13)
[2022-03-30] MEDS: FLUTICASONE/SALMETEROL 500-50 DISKUS 14 DOSE INH SCH ×2 (09:12→20:13)
[2022-03-30] MEDS: FOLIC ACID 1 MG TABLET PO SCH (09:17)
[2022-03-30] MEDS: LORazepam 2 MG/1 ML VIAL IV PRN ×2 (09:18→22:16)
[2022-03-30] MEDS ORDERED: POTASSIUM CHLORIDE 20 MEQ TABLET PO ONE (15:00)
[2022-03-30] MEDS: ATORVASTATIN 10 MG TABLET PO SCH (20:13)
[2022-03-31] MEDS: ALBUTEROL/IPRATROPIUM 3 ML NEB RESP TX SCH ×4 (00:30→19:15)
[2022-03-31] MEDS: POTASSIUM CHLORIDE INJ 10 MEQ, MAGNESIUM SULF INJ 1 GM in SODIUM CHLORIDE 0.45% 1,000 ML IV SCH ×3 (03:56→16:00)
[2022-03-31] MEDS: hydrALAZINE 20 MG/1 ML VIAL IV PRN (04:36)
[2022-03-31 06:46] LABS: Hematocrit 42.9 VOL% (42.0-52.0); Hemoglobin 14.8 GM/DL (14.0-18.0); Immature Granulocytes % 0.5 %; Immature Granulocytes Absolute 0.04 #; Lymphocytes # 0.2 10*3/uL (1.4-4.0); Lymphocytes % 2.6 % (21.2-54.2); Mean Corpuscular HGB Conc 34.5 GM/DL (32-36); Mean Corpuscular Volume 94.5 FL (87-102); Mean Platelet Volume 11.5 FL (9.6-12.0); Monocytes # 0.4 10*3/uL (0.11-0.8); Neutrophils % 91.9 % (38.7-73.9); Platelet Count 147 T/CUMM (130-400); Red Blood Count 4.54 MC/CUMM (3.8-5.5); Red Cell Distribution Width 13.5 % (9.3-17.3); White Blood Count 8.7 T/CUMM (4-12)
[2022-03-31 07:01] LABS: Calcium 8.8 MG/DL (8.5-10.1); Osmolality,Calculated 281.2 MOS/KG (273-304); Potassium 4.2 MMOL/L (3.5-5.1)
[2022-03-31 07:08] LABS: Lymphocytes 7 % (20-55); Platelet Estimate Adequate; Total Cells Counted 100
[2022-03-31] MEDS: PIPERACILLIN/TAZOBACTAM 3,375 MG in SODIUM CHLORIDE 0.9% 100 ML IV SCH ×3 (08:45→23:48)
[2022-03-31] MEDS: PANTOPRAZOLE 40 MG TABLET PO SCH (08:46)
[2022-03-31] MEDS: METOPROLOL SUCCINATE XL 50 MG TABLET PO SCH ×2 (08:46→21:31)
[2022-03-31] MEDS: FOLIC ACID 1 MG TABLET PO SCH (08:46)
[2022-03-31] MEDS: APIXABAN 5 MG TABLET PO SCH ×2 (08:46→21:31)
[2022-03-31] MEDS: methylPREDNISolone SOD SUC 40 MG/1 ML VIAL IV SCH ×3 (08:46→23:48)
[2022-03-31] MEDS: THIAMINE 100 MG TABLET PO SCH (08:46)
[2022-03-31] MEDS: MULTIVITAMIN (CENTRUM) TABLET PO SCH (08:46)
[2022-03-31] MEDS: FLUTICASONE/SALMETEROL 500-50 DISKUS 14 DOSE INH SCH ×2 (08:48→21:31)
[2022-03-31] MEDS: NICOTINE 21 MG/24 HR PATCH TRANSDERM SCH (08:48)
[2022-03-31] MEDS: FUROSEMIDE 20 MG/2 ML VIAL IV SCH ×2 (08:48→15:14)
[2022-03-31] MEDS: amLODIPine 10 MG TABLET PO SCH (08:49)
[2022-03-31] MEDS: ATORVASTATIN 10 MG TABLET PO SCH (21:31)
[2022-04-01] MEDS: ALBUTEROL/IPRATROPIUM 3 ML NEB RESP TX SCH ×4 (00:20→19:35)
[2022-04-01] MEDS: POTASSIUM CHLORIDE INJ 10 MEQ, MAGNESIUM SULF INJ 1 GM in SODIUM CHLORIDE 0.45% 1,000 ML IV SCH ×3 (02:38→22:44)
[2022-04-01] MEDS ORDERED: DEXTROSE 10% 25 GM/250 ML BAG IV PRN (07:54)
[2022-04-01] MEDS: amLODIPine 10 MG TABLET PO SCH (08:40)
[2022-04-01] MEDS: METOPROLOL SUCCINATE XL 50 MG TABLET PO SCH ×2 (08:40→21:33)
[2022-04-01] MEDS: methylPREDNISolone SOD SUC 40 MG/1 ML VIAL IV SCH ×2 (08:40→16:27)
[2022-04-01] MEDS: THIAMINE 100 MG TABLET PO SCH (08:40)
[2022-04-01] MEDS: APIXABAN 5 MG TABLET PO SCH ×2 (08:40→21:32)
[2022-04-01] MEDS: FOLIC ACID 1 MG TABLET PO SCH (08:40)
[2022-04-01] MEDS: PANTOPRAZOLE 40 MG TABLET PO SCH (08:40)
[2022-04-01] MEDS: MULTIVITAMIN (CENTRUM) TABLET PO SCH (08:40)
[2022-04-01] MEDS: NICOTINE 21 MG/24 HR PATCH TRANSDERM SCH (08:41)
[2022-04-01] MEDS: PIPERACILLIN/TAZOBACTAM 3,375 MG in SODIUM CHLORIDE 0.9% 100 ML IV SCH ×2 (08:41→15:15)
[2022-04-01] MEDS: FUROSEMIDE 20 MG/2 ML VIAL IV SCH ×2 (08:42→15:16)
[2022-04-01] MEDS: FLUTICASONE/SALMETEROL 500-50 DISKUS 14 DOSE INH SCH ×2 (08:42→21:32)
[2022-04-01] MEDS: INSULIN REGULAR 100 UNIT/ML SUBCUT SCH ×3 (12:07→21:32)
[2022-04-01] MEDS: ATORVASTATIN 10 MG TABLET PO SCH (21:32)
[2022-04-02] MEDS: ALBUTEROL/IPRATROPIUM 3 ML NEB RESP TX SCH ×4 (00:08→19:00)
[2022-04-02] MEDS: methylPREDNISolone SOD SUC 40 MG/1 ML VIAL IV SCH (00:11)
[2022-04-02] MEDS: PIPERACILLIN/TAZOBACTAM 3,375 MG in SODIUM CHLORIDE 0.9% 100 ML IV SCH (00:11)
[2022-04-02 05:47] LABS: Hematocrit 43.7 VOL% (42.0-52.0); Hemoglobin 14.7 GM/DL (14.0-18.0); Immature Granulocytes % 0.5 %; Immature Granulocytes Absolute 0.05 #; Lymphocytes # 0.3 10*3/uL (1.4-4.0); Lymphocytes % 3.3 % (21.2-54.2); Mean Corpuscular HGB Conc 33.6 GM/DL (32-36); Mean Corpuscular Volume 95.6 FL (87-102); Mean Platelet Volume 12.1 FL (9.6-12.0); Monocytes # 0.5 10*3/uL (0.11-0.8); Monocytes % 5.2 % (1.7-12.7); Platelet Count 156 T/CUMM (130-400); Red Blood Count 4.57 MC/CUMM (3.8-5.5); Red Cell Distribution Width 13.5 % (9.3-17.3); White Blood Count 9.8 T/CUMM (4-12)
[2022-04-02 06:03] LABS: Calcium 9.4 MG/DL (8.5-10.1); Osmolality,Calculated 275.4 MOS/KG (273-304); Potassium 4.2 MMOL/L (3.5-5.1)
[2022-04-02 06:11] LABS: Lymphocytes 8 % (20-55); Platelet Estimate Adequate; Total Cells Counted 100
[2022-04-02] MEDS: INSULIN REGULAR 100 UNIT/ML SUBCUT SCH ×4 (08:45→21:19)
[2022-04-02] MEDS: NICOTINE 21 MG/24 HR PATCH TRANSDERM SCH (08:46)
[2022-04-02] MEDS: MULTIVITAMIN (CENTRUM) TABLET PO SCH (08:46)
[2022-04-02] MEDS: APIXABAN 5 MG TABLET PO SCH ×2 (08:46→21:19)
[2022-04-02] MEDS: predniSONE 20 MG TABLET PO SCH ×2 (08:47→21:19)
[2022-04-02] MEDS: THIAMINE 100 MG TABLET PO SCH (08:47)
[2022-04-02] MEDS: FUROSEMIDE 40 MG TABLET PO SCH (08:47)
[2022-04-02] MEDS: METOPROLOL SUCCINATE XL 50 MG TABLET PO SCH ×2 (08:47→21:19)
[2022-04-02] MEDS: PANTOPRAZOLE 40 MG TABLET PO SCH (08:47)
[2022-04-02] MEDS: amLODIPine 10 MG TABLET PO SCH (08:47)
[2022-04-02] MEDS: FOLIC ACID 1 MG TABLET PO SCH (08:48)
[2022-04-02] MEDS: AZITHROMYCIN 250 MG TABLET PO SCH (08:50)
[2022-04-02] MEDS ORDERED: FUROSEMIDE 40 MG/4 ML VIAL IV SCH (09:00)
[2022-04-02] MEDS: FLUTICASONE/SALMETEROL 500-50 DISKUS 14 DOSE INH SCH ×2 (12:27→21:19)
[2022-04-02] MEDS: POTASSIUM CHLORIDE INJ 10 MEQ, MAGNESIUM SULF INJ 1 GM in SODIUM CHLORIDE 0.45% 1,000 ML IV SCH (14:41)
[2022-04-02] MEDS: ATORVASTATIN 10 MG TABLET PO SCH (21:19)
[2022-04-03] MEDS: ALBUTEROL/IPRATROPIUM 3 ML NEB RESP TX SCH ×2 (00:30→07:44)
[2022-04-03 05:50] LABS: Calcium 9.2 MG/DL (8.5-10.1); Osmolality,Calculated 283.8 MOS/KG (273-304)
[2022-04-03 07:55] VITALS: BP 146/94
[2022-04-03] MEDS: MULTIVITAMIN (CENTRUM) TABLET PO SCH (09:01)
[2022-04-03] MEDS: FOLIC ACID 1 MG TABLET PO SCH (09:01)
[2022-04-03] MEDS: predniSONE 20 MG TABLET PO SCH (09:01)
[2022-04-03] MEDS: PANTOPRAZOLE 40 MG TABLET PO SCH (09:01)
[2022-04-03] MEDS: FUROSEMIDE 40 MG TABLET PO SCH (09:01)
[2022-04-03] MEDS: amLODIPine 10 MG TABLET PO SCH (09:03)
[2022-04-03] MEDS: METOPROLOL SUCCINATE XL 50 MG TABLET PO SCH (09:03)
[2022-04-03] MEDS: AZITHROMYCIN 250 MG TABLET PO SCH (09:03)
[2022-04-03] MEDS: NICOTINE 21 MG/24 HR PATCH TRANSDERM SCH (09:03)
[2022-04-03] MEDS: APIXABAN 5 MG TABLET PO SCH (09:03)
[2022-04-03] MEDS: INSULIN REGULAR 100 UNIT/ML SUBCUT SCH (09:04)
[2022-04-03] MEDS: FLUTICASONE/SALMETEROL 500-50 DISKUS 14 DOSE INH SCH (09:06)
[2022-04-03] MEDS: THIAMINE 100 MG TABLET PO SCH (09:07)
== END 2022-04-03 11:30 | disposition home or self-care (01) | DRG 191 ==
LOC: N.ED 01:57 → N.EDINP 04:04 → SUATTDRO 04:04 → N.3E 15:30
PROVIDERS: ADMIT Internal Medicine; ATTEND Emergency Medicine

== ENCOUNTER 2022-08-10 19:20 | Inpatient (IN) ==
[2022-08-10 20:05] LABS: Basophils % 0.4 % (0.0-0.8); Hematocrit 53.7 VOL% (42.0-52.0); Immature Granulocytes % 0.3 %; Immature Granulocytes Absolute 0.02 #; Lymphocytes # 1.4 10*3/uL (1.4-4.0); Mean Corpuscular HGB Conc 33.5 GM/DL (32-36); Mean Corpuscular Volume 91.2 FL (87-102); Mean Platelet Volume 10.3 FL (9.6-12.0); Monocytes # 0.4 10*3/uL (0.11-0.8); Monocytes % 5.3 % (1.7-12.7); Platelet Count 157 T/CUMM (130-400); Red Blood Count 5.89 MC/CUMM (3.8-5.5); Red Cell Distribution Width 14.7 % (9.3-17.3); White Blood Count 7.6 T/CUMM (4-12)
[2022-08-10] MEDS ORDERED: ONDANSETRON 4 MG/2 ML VIAL IV STA (20:12)
[2022-08-10] MEDS ORDERED: ALBUTEROL/IPRATROPIUM 3 ML NEB RESP TX STA (20:12)
[2022-08-10] MEDS ORDERED: SODIUM CHLORIDE 0.9% 500 ML IV STA (20:12)
[2022-08-10] MEDS ORDERED: methylPREDNISolone SOD SUC 125 MG/2 ML VIAL IV STA (20:12)
[2022-08-10 20:16] LABS: INR 1.1; PT Patient Result 11.8 SECS (10.1-12.1)
[2022-08-10 20:22] LABS: Albumin 3.7 G/DL (3.4-5.0); Bilirubin,Total 1.3 MG/DL (0.20-1.00); Calcium 9.2 MG/DL (8.5-10.1); Osmolality,Calculated 272.7 MOS/KG (273-304); Potassium 3.4 MMOL/L (3.5-5.1); Total Protein 7.5 G/DL (6.4-8.2)
[2022-08-10] MEDS ORDERED: THIAMINE INJ 100 MG, FOLIC ACID INJ 1 MG, MAGNESIUM SULF INJ 2 GM, MULTIVITAMIN INJ 10 ... IV ONE (20:36)
[2022-08-10 20:46] LABS: ABG Base Excess 0.4 MMOL/L (-2.5-2.5); ABG HCO3 24.7 MMOL/L (20-26); ABG Oxygen Saturation 94.4 % (95-100); ABG PCO2 32.1 MM HG (35-48); ABG PH 7.464 (7.35-7.45); ABG PO2 77.1 MM HG (80-95); ABG TCO2 18.8 MMOL/L (23-27)
[2022-08-10] MEDS ORDERED: ENOXAPARIN 100 MG/ML SYRINGE SUBCUT STA (22:27)
[2022-08-10] MEDS ORDERED: MAGNESIUM SULF RIDER 4 GM/100 ML PREMIX IV PRN (22:44)
[2022-08-10] MEDS ORDERED: MAGNESIUM SULF RIDER 2 GM/50 ML PREMIX IV PRN (22:44)
[2022-08-10 22:50] LABS: Bacteria,Urine Occasional /HPF (Few); Bilirubin,Urine Negative (Negative); Blood, Urine Trace mg/dL (Negative); Glucose,Urine (UA) Negative (Negative); Hyaline Casts,Urine 4 /LPF (0-3); Ketones,Urine Trace mg/dL (Negative); Mucus,Urine Occasional /LPF (Occasional); Nitrite,Urine Negative (Negative); Protein,Urine Negative (Negative); RBC,Urine 18 /HPF (0-4); Squamous Epithelial Cell,Urine Occasional /HPF (0-10); Urine Appearance Clear (Clear); Urine Color Yellow (Yellow)
[2022-08-10 23:03] LABS: Barbiturates Screen,Urine Negative (Negative); Benzodiazepines Screen,Urine Negative (Negative); Cannabinoid Screen,Urine Negative (Negative); Opiate Screen,Urine Negative (Negative); Phencyclidine Screen,Urine Negative (Negative)
[2022-08-10] MEDS ORDERED: ACETAMINOPHEN 325 MG TABLET PO PRN (23:56)
[2022-08-10] MEDS ORDERED: ZALEPLON 5 MG CAPSULE PO PRN (23:56)
[2022-08-10] MEDS ORDERED: GLUCAGON 1 MG VIAL IM PRN (23:56)
[2022-08-10] MEDS ORDERED: guaiFENesin/DM ER 600-30 MG TABLET PO PRN (23:56)
[2022-08-10] MEDS ORDERED: NICOTINE 21 MG/24 HR PATCH TRANSDERM PRN (23:56)
[2022-08-10] MEDS ORDERED: diphenhydrAMINE CAP 25 MG CAPSULE PO PRN (23:56)
[2022-08-10] MEDS ORDERED: DEXTROSE 10% 250 ML BAG IV PRN (23:56)
[2022-08-10] MEDS ORDERED: ONDANSETRON 4 MG/2 ML VIAL IV PRN (23:56)
[2022-08-10] MEDS ORDERED: hydrALAZINE 20 MG/1 ML VIAL IV PRN (23:56)
[2022-08-11] MEDS: ENOXAPARIN 80 MG/0.8 ML SYRINGE SUBCUT SCH ×2 (01:04→12:12)
[2022-08-11] MEDS: ALBUTEROL/IPRATROPIUM 3 ML NEB RESP TX SCH ×4 (01:14→19:16)
[2022-08-11 06:11] LABS: Basophils % 0.2 % (0.0-0.8); Hematocrit 51.2 VOL% (42.0-52.0); Hemoglobin 16.9 GM/DL (14.0-18.0); Immature Granulocytes % 0.4 %; Immature Granulocytes Absolute 0.02 #; Lymphocytes # 0.2 10*3/uL (1.4-4.0); Lymphocytes % 3.4 % (21.2-54.2); Mean Corpuscular Volume 91.8 FL (87-102); Mean Platelet Volume 10.8 FL (9.6-12.0); Monocytes # 0.1 10*3/uL (0.11-0.8); Monocytes % 0.9 % (1.7-12.7); Neutrophils % 95.1 % (38.7-73.9); Platelet Count 138 T/CUMM (130-400); Red Blood Count 5.58 MC/CUMM (3.8-5.5); Red Cell Distribution Width 14.4 % (9.3-17.3); White Blood Count 5.6 T/CUMM (4-12)
[2022-08-11 06:17] LABS: INR 1.1; PT Patient Result 11.7 SECS (10.1-12.1); Partial Thromboplastin Time 44.1 SECS (23.7-32.9)
[2022-08-11 06:35] LABS: Calcium 9.4 MG/DL (8.5-10.1); Osmolality,Calculated 269.1 MOS/KG (273-304); Potassium 4.3 MMOL/L (3.5-5.1)
[2022-08-11 06:36] LABS: Lymphocytes 1 % (20-55); Platelet Estimate Normal; Total Cells Counted 100
[2022-08-11] MEDS ORDERED: LORazepam 2 MG/1 ML VIAL IV PRN (08:27)
[2022-08-11] MEDS ORDERED: THIAMINE INJ 100 MG, FOLIC ACID INJ 1 MG, MULTIVITAMIN INJ 10 ML in SODIUM CHLORIDE 0.4... IV SCH (08:30)
[2022-08-11] MEDS: chlordiazePOXIDE 25 MG CAPSULE PO SCH ×3 (09:29→21:07)
[2022-08-11] MEDS: TAMSULOSIN 0.4 MG CAPSULE PO SCH ×2 (09:30→21:06)
[2022-08-11] MEDS: amLODIPine 10 MG TABLET PO SCH (09:30)
[2022-08-11] MEDS: METOPROLOL SUCCINATE XL 50 MG TABLET PO SCH ×2 (09:30→21:08)
[2022-08-11] MEDS: BUDESONIDE/FORMOTEROL 160-4.5 INHALER 6 GM INH SCH ×2 (09:33→21:08)
[2022-08-11] MEDS: 1: THIAMINE INJ 100 MG, FOLIC ACID INJ 1 MG, MULTIVITAMIN INJ 10 ML in SODIUM CHLORIDE 0 IV SCH ×2 (10:12→21:06)
[2022-08-11] MEDS: GABAPENTIN 600 MG TABLET PO SCH ×2 (15:33→21:08)
[2022-08-11] MEDS ORDERED: FLUTICASONE/SALMETEROL 500-50 DISKUS 14 DOSE INH SCH (21:00)
[2022-08-11] MEDS: methylPREDNISolone SOD SUC 125 MG/2 ML VIAL IV SCH (21:05)
[2022-08-11] MEDS: PIPERACILLIN/TAZOBACTAM 3,375 MG in SODIUM CHLORIDE 0.9% 100 ML IV SCH (21:05)
[2022-08-11] MEDS: ATORVASTATIN 10 MG TABLET PO SCH (21:07)
[2022-08-12] MEDS: ENOXAPARIN 80 MG/0.8 ML SYRINGE SUBCUT SCH (00:55)
[2022-08-12] MEDS: PIPERACILLIN/TAZOBACTAM 3,375 MG in SODIUM CHLORIDE 0.9% 100 ML IV SCH ×3 (04:17→20:37)
[2022-08-12] MEDS: 1: THIAMINE INJ 100 MG, FOLIC ACID INJ 1 MG, MULTIVITAMIN INJ 10 ML in SODIUM CHLORIDE 0 IV SCH ×2 (05:29→20:42)
[2022-08-12 05:54] LABS: Basophils % 0.2 % (0.0-0.8); Eosinophils % 0.2 % (0.00-10.9); Hematocrit 50.1 VOL% (42.0-52.0); Hemoglobin 16.5 GM/DL (14.0-18.0); Immature Granulocytes % 0.2 %; Immature Granulocytes Absolute 0.01 #; Lymphocytes % 17.5 % (21.2-54.2); Mean Corpuscular HGB Conc 32.9 GM/DL (32-36); Mean Corpuscular Volume 92.6 FL (87-102); Mean Platelet Volume 11.5 FL (9.6-12.0); Monocytes # 0.3 10*3/uL (0.11-0.8); Neutrophils % 75.9 % (38.7-73.9); Platelet Count 105 T/CUMM (130-400); Red Blood Count 5.41 MC/CUMM (3.8-5.5); Red Cell Distribution Width 14.4 % (9.3-17.3); White Blood Count 5.7 T/CUMM (4-12)
[2022-08-12 06:21] LABS: Calcium 8.3 MG/DL (8.5-10.1); Osmolality,Calculated 266.4 MOS/KG (273-304)
[2022-08-12] MEDS: ALBUTEROL/IPRATROPIUM 3 ML NEB RESP TX SCH ×4 (07:25→22:31)
[2022-08-12] MEDS ORDERED: POTASSIUM CHLORIDE 20 MEQ TABLET PO ONE ×3 (07:27→11:00)
[2022-08-12] MEDS ORDERED: MAGNESIUM SULF RIDER 2 GM/50 ML PREMIX IV ONE (08:06)
[2022-08-12] MEDS ORDERED: predniSONE 10 MG TABLET PO SCH (09:00)
[2022-08-12] MEDS: TAMSULOSIN 0.4 MG CAPSULE PO SCH ×2 (10:45→20:37)
[2022-08-12] MEDS: chlordiazePOXIDE 25 MG CAPSULE PO SCH ×3 (10:45→20:37)
[2022-08-12] MEDS: methylPREDNISolone SOD SUC 125 MG/2 ML VIAL IV SCH ×2 (10:45→20:36)
[2022-08-12] MEDS: amLODIPine 10 MG TABLET PO SCH (10:46)
[2022-08-12] MEDS: GABAPENTIN 600 MG TABLET PO SCH ×3 (10:46→20:38)
[2022-08-12] MEDS: PANTOPRAZOLE 40 MG TABLET PO SCH (10:46)
[2022-08-12] MEDS: BUDESONIDE/FORMOTEROL 160-4.5 INHALER 6 GM INH SCH ×2 (10:47→20:38)
[2022-08-12] MEDS: MONTELUKAST 10 MG TABLET PO SCH (10:50)
[2022-08-12] MEDS: METOPROLOL SUCCINATE XL 50 MG TABLET PO SCH ×2 (10:56→20:38)
[2022-08-12] MEDS: ATORVASTATIN 10 MG TABLET PO SCH (20:37)
[2022-08-12] MEDS: APIXABAN 5 MG TABLET PO SCH (20:37)
[2022-08-13] MEDS: ALBUTEROL/IPRATROPIUM 3 ML NEB RESP TX SCH ×4 (00:19→19:23)
[2022-08-13] MEDS: 1: THIAMINE INJ 100 MG, FOLIC ACID INJ 1 MG, MULTIVITAMIN INJ 10 ML in SODIUM CHLORIDE 0 IV SCH ×3 (02:24→22:30)
[2022-08-13] MEDS: PIPERACILLIN/TAZOBACTAM 3,375 MG in SODIUM CHLORIDE 0.9% 100 ML IV SCH ×3 (04:39→20:30)
[2022-08-13 06:13] LABS: Basophils % 0.1 % (0.0-0.8); Hematocrit 49.8 VOL% (42.0-52.0); Hemoglobin 16.4 GM/DL (14.0-18.0); Immature Granulocytes % 0.2 %; Immature Granulocytes Absolute 0.02 #; Lymphocytes # 0.6 10*3/uL (1.4-4.0); Lymphocytes % 6.2 % (21.2-54.2); Mean Corpuscular HGB Conc 32.9 GM/DL (32-36); Mean Platelet Volume 11.1 FL (9.6-12.0); Monocytes # 0.5 10*3/uL (0.11-0.8); Neutrophils % 87.5 % (38.7-73.9); Platelet Count 105 T/CUMM (130-400); Red Blood Count 5.47 MC/CUMM (3.8-5.5); Red Cell Distribution Width 14.2 % (9.3-17.3); White Blood Count 8.9 T/CUMM (4-12)
[2022-08-13 06:28] LABS: INR 1.2; PT Patient Result 12.6 SECS (10.1-12.1)
[2022-08-13 06:41] LABS: Albumin 3.6 G/DL (3.4-5.0); Bilirubin,Total 0.9 MG/DL (0.20-1.00); Calcium 9.2 MG/DL (8.5-10.1); Osmolality,Calculated 264.7 MOS/KG (273-304); Potassium 5.2 MMOL/L (3.5-5.1); Total Protein 7.6 G/DL (6.4-8.2)
[2022-08-13] MEDS ORDERED: SODIUM POLYSTYRENE SULFATE 15 GM/60 ML BOTTLE PO STA (07:33)
[2022-08-13] MEDS: BUDESONIDE/FORMOTEROL 160-4.5 INHALER 6 GM INH SCH ×2 (08:02→21:40)
[2022-08-13] MEDS: chlordiazePOXIDE 25 MG CAPSULE PO SCH (08:03)
[2022-08-13] MEDS: APIXABAN 5 MG TABLET PO SCH ×2 (08:03→21:39)
[2022-08-13] MEDS: GABAPENTIN 600 MG TABLET PO SCH ×3 (08:03→21:39)
[2022-08-13] MEDS: PANTOPRAZOLE 40 MG TABLET PO SCH (08:03)
[2022-08-13] MEDS: methylPREDNISolone SOD SUC 125 MG/2 ML VIAL IV SCH ×2 (08:03→21:39)
[2022-08-13] MEDS: TAMSULOSIN 0.4 MG CAPSULE PO SCH ×2 (08:03→21:39)
[2022-08-13] MEDS: METOPROLOL SUCCINATE XL 50 MG TABLET PO SCH ×2 (08:03→21:39)
[2022-08-13] MEDS: MONTELUKAST 10 MG TABLET PO SCH (08:04)
[2022-08-13] MEDS: amLODIPine 10 MG TABLET PO SCH (08:04)
[2022-08-13] MEDS ORDERED: chlordiazePOXIDE 25 MG CAPSULE PO SCH (21:00)
[2022-08-13] MEDS: ATORVASTATIN 10 MG TABLET PO SCH (21:39)
[2022-08-14] MEDS: ALBUTEROL/IPRATROPIUM 3 ML NEB RESP TX SCH ×4 (00:48→19:08)
[2022-08-14] MEDS: PIPERACILLIN/TAZOBACTAM 3,375 MG in SODIUM CHLORIDE 0.9% 100 ML IV SCH ×2 (04:00→11:50)
[2022-08-14 05:35] LABS: Basophils % 0.1 % (0.0-0.8); Hematocrit 47.7 VOL% (42.0-52.0); Hemoglobin 15.9 GM/DL (14.0-18.0); Immature Granulocytes % 0.5 %; Immature Granulocytes Absolute 0.05 #; Lymphocytes # 0.2 10*3/uL (1.4-4.0); Lymphocytes % 2.5 % (21.2-54.2); Mean Corpuscular HGB Conc 33.3 GM/DL (32-36); Mean Corpuscular Volume 91.6 FL (87-102); Mean Platelet Volume 12.3 FL (9.6-12.0); Monocytes # 0.4 10*3/uL (0.11-0.8); Monocytes % 4.4 % (1.7-12.7); Neutrophils % 92.5 % (38.7-73.9); Platelet Count 54 T/CUMM (130-400); Red Blood Count 5.21 MC/CUMM (3.8-5.5); Red Cell Distribution Width 14.3 % (9.3-17.3); White Blood Count 9.5 T/CUMM (4-12)
[2022-08-14 05:55] LABS: Bilirubin,Total 0.8 MG/DL (0.20-1.00); Calcium 9.4 MG/DL (8.5-10.1); Osmolality,Calculated 276.4 MOS/KG (273-304); Potassium 4.5 MMOL/L (3.5-5.1); Total Protein 6.7 G/DL (6.4-8.2)
[2022-08-14 06:31] LABS: Lymphocytes 4 % (20-55); Total Cells Counted 100
[2022-08-14 06:32] LABS: Hypochromia Slight; Microcytosis Slight
[2022-08-14] MEDS: 1: THIAMINE INJ 100 MG, FOLIC ACID INJ 1 MG, MULTIVITAMIN INJ 10 ML in SODIUM CHLORIDE 0 IV SCH (09:40)
[2022-08-14] MEDS: chlordiazePOXIDE 25 MG CAPSULE PO SCH (09:45)
[2022-08-14] MEDS: amLODIPine 10 MG TABLET PO SCH (09:45)
[2022-08-14] MEDS: APIXABAN 5 MG TABLET PO SCH ×2 (09:45→21:45)
[2022-08-14] MEDS: TAMSULOSIN 0.4 MG CAPSULE PO SCH ×2 (09:46→21:45)
[2022-08-14] MEDS: METOPROLOL SUCCINATE XL 50 MG TABLET PO SCH ×2 (09:46→21:45)
[2022-08-14] MEDS: GABAPENTIN 600 MG TABLET PO SCH ×3 (09:46→21:45)
[2022-08-14] MEDS: MONTELUKAST 10 MG TABLET PO SCH (09:46)
[2022-08-14] MEDS: PANTOPRAZOLE 40 MG TABLET PO SCH (09:46)
[2022-08-14] MEDS: methylPREDNISolone SOD SUC 125 MG/2 ML VIAL IV SCH ×2 (09:48→21:45)
[2022-08-14] MEDS: BUDESONIDE/FORMOTEROL 160-4.5 INHALER 6 GM INH SCH ×2 (09:55→21:45)
[2022-08-14] MEDS: ATORVASTATIN 10 MG TABLET PO SCH (21:45)
[2022-08-15] MEDS: ALBUTEROL/IPRATROPIUM 3 ML NEB RESP TX SCH ×3 (02:20→14:21)
[2022-08-15 05:53] LABS: Basophils % 0.1 % (0.0-0.8); Hematocrit 45.1 VOL% (42.0-52.0); Hemoglobin 14.7 GM/DL (14.0-18.0); Immature Granulocytes % 0.4 %; Immature Granulocytes Absolute 0.04 #; Lymphocytes # 0.3 10*3/uL (1.4-4.0); Lymphocytes % 3.4 % (21.2-54.2); Mean Corpuscular HGB Conc 32.6 GM/DL (32-36); Mean Corpuscular Volume 93.6 FL (87-102); Mean Platelet Volume 11.8 FL (9.6-12.0); Monocytes # 0.6 10*3/uL (0.11-0.8); Monocytes % 6.1 % (1.7-12.7); Platelet Count 96 T/CUMM (130-400); Red Blood Count 4.82 MC/CUMM (3.8-5.5); Red Cell Distribution Width 14.7 % (9.3-17.3); White Blood Count 9.4 T/CUMM (4-12)
[2022-08-15 06:35] LABS: Calcium 9.6 MG/DL (8.5-10.1); Osmolality,Calculated 278.4 MOS/KG (273-304); Potassium 4.7 MMOL/L (3.5-5.1)
[2022-08-15 06:45] LABS: Hypochromia Slight; Lymphocytes 2 % (20-55); Total Cells Counted 100
[2022-08-15 06:46] LABS: Microcytosis Slight; Platelet Estimate Decreased
[2022-08-15] MEDS ORDERED: LEVOFLOXACIN 500 MG TABLET PO SCH (09:00)
[2022-08-15] MEDS: chlordiazePOXIDE 25 MG CAPSULE PO SCH (10:25)
[2022-08-15] MEDS: methylPREDNISolone SOD SUC 125 MG/2 ML VIAL IV SCH (10:25)
[2022-08-15] MEDS: GABAPENTIN 600 MG TABLET PO SCH ×2 (10:26→15:18)
[2022-08-15] MEDS: APIXABAN 5 MG TABLET PO SCH (10:26)
[2022-08-15] MEDS: amLODIPine 10 MG TABLET PO SCH (10:26)
[2022-08-15] MEDS: METOPROLOL SUCCINATE XL 50 MG TABLET PO SCH (10:26)
[2022-08-15] MEDS: TAMSULOSIN 0.4 MG CAPSULE PO SCH (10:26)
[2022-08-15] MEDS: PANTOPRAZOLE 40 MG TABLET PO SCH (10:26)
[2022-08-15] MEDS: MONTELUKAST 10 MG TABLET PO SCH (10:26)
[2022-08-15] MEDS: BUDESONIDE/FORMOTEROL 160-4.5 INHALER 6 GM INH SCH (10:28)
[2022-08-15 14:43] VITALS: BP 138/71
== END 2022-08-15 15:00 | disposition home health service (06) | DRG 191 ==
LOC: N.ED 19:20 → N.EDINP 23:56 → SUATTDRO 23:56 → N.EDINP 08-11 02:30 → N.TELES 08-11 03:24
PROVIDERS: ADMIT Internal Medicine; ATTEND Family Medicine

== ENCOUNTER 2022-11-29 07:05 | Inpatient (IN) ==
[2022-11-29 07:43] LABS: Basophils % 0.4 % (0.0-0.8); Eosinophils % 0.2 % (0.00-10.9); Hemoglobin 15.8 GM/DL (14.0-18.0); Immature Granulocytes % 0.2 %; Immature Granulocytes Absolute 0.02 #; Lymphocytes # 1.5 10*3/uL (1.4-4.0); Lymphocytes % 18.3 % (21.2-54.2); Mean Corpuscular HGB Conc 33.6 GM/DL (32-36); Mean Corpuscular Volume 92.3 FL (87-102); Mean Platelet Volume 10.4 FL (9.6-12.0); Monocytes # 0.5 10*3/uL (0.11-0.8); Monocytes % 6.2 % (1.7-12.7); Neutrophils % 74.7 % (38.7-73.9); Platelet Count 272 T/CUMM (130-400); Red Blood Count 5.09 MC/CUMM (3.8-5.5); Red Cell Distribution Width 15.2 % (9.3-17.3); White Blood Count 8.3 T/CUMM (4-12)
[2022-11-29 08:00] LABS: Albumin 4.4 G/DL (3.4-5.0); Osmolality,Calculated 274.7 MOS/KG (273-304); Potassium 3.9 MMOL/L (3.5-5.1); Total Protein 7.7 G/DL (6.4-8.2)
[2022-11-29] MEDS ORDERED: cefTRIAXone 1,000 MG in SODIUM CHLORIDE 0.9% 100 ML IV STA (09:19)
[2022-11-29] MEDS ORDERED: SODIUM CHLORIDE 0.9% 2,000 ML IV STA (10:00)
[2022-11-29] MEDS ORDERED: VANCOMYCIN INJ 1,000 MG in SODIUM CHLORIDE 0.9% 250 ML IV SCH (10:00)
[2022-11-29] MEDS ORDERED: ONDANSETRON 4 MG/2 ML VIAL IV PRN (10:01)
[2022-11-29] MEDS ORDERED: MORPHINE 2 MG/1 ML SYRINGE IV PRN (10:01)
[2022-11-29] MEDS ORDERED: hydrALAZINE 20 MG/1 ML VIAL IV PRN (10:01)
[2022-11-29] MEDS ORDERED: ACETAMINOPHEN 325 MG TABLET PO PRN (10:01)
[2022-11-29] MEDS ORDERED: NICOTINE 21 MG/24 HR PATCH TRANSDERM PRN (10:01)
[2022-11-29] MEDS: ALBUTEROL/IPRATROPIUM 3 ML NEB RESP TX SCH ×4 (10:22→23:25)
[2022-11-29] MEDS ORDERED: diphenhydrAMINE 50 MG/1 ML VIAL ONE (10:51)
[2022-11-29] MEDS ORDERED: diphenhydrAMINE 50 MG/1 ML VIAL IV STA (10:55)
[2022-11-29] MEDS: AZITHROMYCIN INJ 500 MG in SODIUM CHLORIDE 0.9% 250 ML IV SCH (11:30)
[2022-11-29] MEDS ORDERED: MAGNESIUM SULF RIDER 1 GM/100 ML PREMIX IV ONE ×2 (13:39→15:00)
[2022-11-29] MEDS: PIPERACILLIN/TAZOBACTAM 3,375 MG in SODIUM CHLORIDE 0.9% 100 ML IV SCH ×2 (14:22→21:25)
[2022-11-29] MEDS: METOPROLOL SUCCINATE XL 50 MG TABLET PO SCH (21:25)
[2022-11-29] MEDS: APIXABAN 5 MG TABLET PO SCH (21:25)
[2022-11-29] MEDS: DOCUSATE SODIUM 100 MG CAPSULE PO SCH (21:25)
[2022-11-29] MEDS: ATORVASTATIN 10 MG TABLET PO SCH (21:25)
[2022-11-29] MEDS: BUDESONIDE/FORMOTEROL 160-4.5 INHALER 6 GM INH SCH (21:27)
[2022-11-30] MEDS: ALBUTEROL/IPRATROPIUM 3 ML NEB RESP TX SCH ×5 (03:15→19:50)
[2022-11-30 03:36] LABS: Arterial Base Excess iSTAT 3 MMOL/L (-2.5-2.5); Arterial O2 Saturation iSTAT 96 % (95-100); Arterial PCO2 iSTAT 39 MM HG (35-48); Arterial PO2 iSTAT 79 MM HG (80-95); Arterial Total CO2 iSTAT 28 MMO/L (23-27); Arterial pH iSTAT 7.445 (7.35-7.45)
[2022-11-30 05:12] LABS: Basophils % 0.2 % (0.0-0.8); Eosinophils # 0.1 10*3/uL (0.0-0.87); Eosinophils % 1.6 % (0.00-10.9); Hematocrit 43.3 VOL% (42.0-52.0); Hemoglobin 14.3 GM/DL (14.0-18.0); Immature Granulocytes % 0.2 %; Immature Granulocytes Absolute 0.01 #; Lymphocytes # 1.2 10*3/uL (1.4-4.0); Lymphocytes % 20.1 % (21.2-54.2); Mean Corpuscular Volume 95.2 FL (87-102); Mean Platelet Volume 10.4 FL (9.6-12.0); Monocytes # 0.5 10*3/uL (0.11-0.8); Monocytes % 8.2 % (1.7-12.7); Neutrophils % 69.7 % (38.7-73.9); Platelet Count 209 T/CUMM (130-400); Red Blood Count 4.55 MC/CUMM (3.8-5.5); White Blood Count 6.1 T/CUMM (4-12)
[2022-11-30 05:34] LABS: Calcium 9.2 MG/DL (8.5-10.1); Osmolality,Calculated 273.7 MOS/KG (273-304); Potassium 3.4 MMOL/L (3.5-5.1)
[2022-11-30] MEDS: PIPERACILLIN/TAZOBACTAM 3,375 MG in SODIUM CHLORIDE 0.9% 100 ML IV SCH ×3 (07:29→22:51)
[2022-11-30] MEDS: guaiFENesin/DM ER 600-30 MG TABLET PO PRN (09:09)
[2022-11-30] MEDS: METOPROLOL SUCCINATE XL 50 MG TABLET PO SCH ×2 (09:09→21:27)
[2022-11-30] MEDS: PANTOPRAZOLE 40 MG TABLET PO SCH (09:09)
[2022-11-30] MEDS: APIXABAN 5 MG TABLET PO SCH ×2 (09:10→21:26)
[2022-11-30] MEDS: DOCUSATE SODIUM 100 MG CAPSULE PO SCH ×2 (09:10→21:26)
[2022-11-30] MEDS: amLODIPine 10 MG TABLET PO SCH (09:10)
[2022-11-30] MEDS: BUDESONIDE/FORMOTEROL 160-4.5 INHALER 6 GM INH SCH ×2 (09:11→21:32)
[2022-11-30] MEDS: FOLIC ACID 1 MG TABLET PO SCH (09:11)
[2022-11-30] MEDS: MONTELUKAST 10 MG TABLET PO SCH (09:11)
[2022-11-30] MEDS ORDERED: LEVOFLOXACIN INJ 500 MG/100 ML PREMIX IV SCH (13:00)
[2022-11-30 13:28] LABS: Risk Ratio 1.79; VLDL Cholesterol 15.6 MG/DL
[2022-11-30] MEDS: AZITHROMYCIN INJ 500 MG in SODIUM CHLORIDE 0.9% 250 ML IV SCH (14:06)
[2022-11-30] MEDS: diphenhydrAMINE CAP 25 MG CAPSULE PO PRN (14:12)
[2022-11-30] MEDS: ATORVASTATIN 10 MG TABLET PO SCH (21:27)
[2022-12-01] MEDS: ALBUTEROL/IPRATROPIUM 3 ML NEB RESP TX SCH ×6 (00:18→19:08)
[2022-12-01] MEDS: guaiFENesin/DM ER 600-30 MG TABLET PO PRN (04:02)
[2022-12-01 06:05] LABS: Basophils % 0.2 % (0.0-0.8); Eosinophils # 0.1 10*3/uL (0.0-0.87); Eosinophils % 1.2 % (0.00-10.9); Hematocrit 42.3 VOL% (42.0-52.0); Hemoglobin 14.1 GM/DL (14.0-18.0); Immature Granulocytes % 0.2 %; Immature Granulocytes Absolute 0.02 #; Lymphocytes # 1.2 10*3/uL (1.4-4.0); Lymphocytes % 14.8 % (21.2-54.2); Mean Corpuscular HGB Conc 33.3 GM/DL (32-36); Mean Corpuscular Volume 95.1 FL (87-102); Mean Platelet Volume 10.4 FL (9.6-12.0); Monocytes # 0.7 10*3/uL (0.11-0.8); Monocytes % 8.3 % (1.7-12.7); Neutrophils % 75.3 % (38.7-73.9); Platelet Count 191 T/CUMM (130-400); Red Blood Count 4.45 MC/CUMM (3.8-5.5); Red Cell Distribution Width 14.6 % (9.3-17.3); White Blood Count 8.3 T/CUMM (4-12)
[2022-12-01 06:21] LABS: Calcium 9.1 MG/DL (8.5-10.1); Osmolality,Calculated 273.8 MOS/KG (273-304); Potassium 3.9 MMOL/L (3.5-5.1)
[2022-12-01] MEDS: MONTELUKAST 10 MG TABLET PO SCH (09:09)
[2022-12-01] MEDS: amLODIPine 10 MG TABLET PO SCH (09:09)
[2022-12-01] MEDS: FOLIC ACID 1 MG TABLET PO SCH (09:09)
[2022-12-01] MEDS: APIXABAN 5 MG TABLET PO SCH ×2 (09:09→22:07)
[2022-12-01] MEDS: PIPERACILLIN/TAZOBACTAM 3,375 MG in SODIUM CHLORIDE 0.9% 100 ML IV SCH ×3 (09:09→23:14)
[2022-12-01] MEDS: METOPROLOL SUCCINATE XL 50 MG TABLET PO SCH ×2 (09:09→22:07)
[2022-12-01] MEDS: PANTOPRAZOLE 40 MG TABLET PO SCH (09:09)
[2022-12-01] MEDS: BUDESONIDE/FORMOTEROL 160-4.5 INHALER 6 GM INH SCH ×2 (09:10→22:09)
[2022-12-01] MEDS: DOCUSATE SODIUM 100 MG CAPSULE PO SCH ×2 (11:07→22:07)
[2022-12-01] MEDS: ATORVASTATIN 10 MG TABLET PO SCH (22:07)
[2022-12-01] MEDS: ZALEPLON 5 MG CAPSULE PO PRN (22:14)
[2022-12-02] MEDS: ALBUTEROL/IPRATROPIUM 3 ML NEB RESP TX SCH ×7 (00:09→20:41)
[2022-12-02] MEDS: diphenhydrAMINE CAP 25 MG CAPSULE PO PRN (03:10)
[2022-12-02 05:04] LABS: Basophils % 0.2 % (0.0-0.8); Eosinophils # 0.2 10*3/uL (0.0-0.87); Eosinophils % 2.9 % (0.00-10.9); Hematocrit 42.7 VOL% (42.0-52.0); Hemoglobin 14.5 GM/DL (14.0-18.0); Immature Granulocytes % 0.2 %; Immature Granulocytes Absolute 0.01 #; Lymphocytes # 1.6 10*3/uL (1.4-4.0); Lymphocytes % 25.1 % (21.2-54.2); Mean Corpuscular Volume 96.4 FL (87-102); Mean Platelet Volume 10.9 FL (9.6-12.0); Monocytes # 0.6 10*3/uL (0.11-0.8); Monocytes % 8.5 % (1.7-12.7); Neutrophils % 63.1 % (38.7-73.9); Platelet Count 180 T/CUMM (130-400); Red Blood Count 4.43 MC/CUMM (3.8-5.5); Red Cell Distribution Width 14.7 % (9.3-17.3); White Blood Count 6.5 T/CUMM (4-12)
[2022-12-02 05:30] LABS: Calcium 8.9 MG/DL (8.5-10.1); Osmolality,Calculated 261.7 MOS/KG (273-304); Potassium 4.3 MMOL/L (3.5-5.1)
[2022-12-02] MEDS: PANTOPRAZOLE 40 MG TABLET PO SCH (09:46)
[2022-12-02] MEDS: FOLIC ACID 1 MG TABLET PO SCH (09:46)
[2022-12-02] MEDS: MONTELUKAST 10 MG TABLET PO SCH (09:46)
[2022-12-02] MEDS: amLODIPine 10 MG TABLET PO SCH (09:46)
[2022-12-02] MEDS: METOPROLOL SUCCINATE XL 50 MG TABLET PO SCH ×2 (09:46→20:46)
[2022-12-02] MEDS: PIPERACILLIN/TAZOBACTAM 3,375 MG in SODIUM CHLORIDE 0.9% 100 ML IV SCH ×3 (09:46→23:17)
[2022-12-02] MEDS: APIXABAN 5 MG TABLET PO SCH ×2 (09:46→20:46)
[2022-12-02] MEDS: BUDESONIDE/FORMOTEROL 160-4.5 INHALER 6 GM INH SCH ×2 (09:47→20:49)
[2022-12-02] MEDS: DOCUSATE SODIUM 100 MG CAPSULE PO SCH ×2 (11:16→20:46)
[2022-12-02] MEDS: ATORVASTATIN 10 MG TABLET PO SCH (20:46)
[2022-12-02] MEDS: ZALEPLON 5 MG CAPSULE PO PRN (20:48)
[2022-12-03] MEDS: ALBUTEROL/IPRATROPIUM 3 ML NEB RESP TX SCH ×4 (03:24→14:14)
[2022-12-03 05:12] LABS: Basophils % 0.2 % (0.0-0.8); Eosinophils # 0.2 10*3/uL (0.0-0.87); Eosinophils % 3.3 % (0.00-10.9); Hematocrit 40.4 VOL% (42.0-52.0); Hemoglobin 13.4 GM/DL (14.0-18.0); Immature Granulocytes % 0.3 %; Immature Granulocytes Absolute 0.02 #; Lymphocytes # 1.6 10*3/uL (1.4-4.0); Lymphocytes % 24.6 % (21.2-54.2); Mean Corpuscular HGB Conc 33.2 GM/DL (32-36); Mean Corpuscular Volume 97.6 FL (87-102); Mean Platelet Volume 10.7 FL (9.6-12.0); Monocytes # 0.8 10*3/uL (0.11-0.8); Monocytes % 12.7 % (1.7-12.7); Neutrophils % 58.9 % (38.7-73.9); Platelet Count 166 T/CUMM (130-400); Red Blood Count 4.14 MC/CUMM (3.8-5.5); Red Cell Distribution Width 14.7 % (9.3-17.3); White Blood Count 6.6 T/CUMM (4-12)
[2022-12-03 05:44] LABS: Calcium 9.2 MG/DL (8.5-10.1); Osmolality,Calculated 276.7 MOS/KG (273-304); Potassium 3.8 MMOL/L (3.5-5.1)
[2022-12-03] MEDS: PIPERACILLIN/TAZOBACTAM 3,375 MG in SODIUM CHLORIDE 0.9% 100 ML IV SCH (09:28)
[2022-12-03] MEDS: FOLIC ACID 1 MG TABLET PO SCH (09:30)
[2022-12-03] MEDS: amLODIPine 10 MG TABLET PO SCH (09:30)
[2022-12-03] MEDS: APIXABAN 5 MG TABLET PO SCH (09:30)
[2022-12-03] MEDS: MONTELUKAST 10 MG TABLET PO SCH (09:30)
[2022-12-03] MEDS: PANTOPRAZOLE 40 MG TABLET PO SCH (09:30)
[2022-12-03] MEDS: METOPROLOL SUCCINATE XL 50 MG TABLET PO SCH (09:30)
[2022-12-03] MEDS: BUDESONIDE/FORMOTEROL 160-4.5 INHALER 6 GM INH SCH (09:30)
[2022-12-03] MEDS: DOCUSATE SODIUM 100 MG CAPSULE PO SCH (09:30)
[2022-12-03] MEDS ORDERED: MAGNESIUM SULF RIDER 1 GM/100 ML PREMIX IV ONE (11:30)
[2022-12-03 12:03] VITALS: BP 106/45
== END 2022-12-03 15:43 | disposition home or self-care (01) | DRG 194 ==
LOC: N.ED 07:05 → N.EDINP 10:01 → SUATTDRO 10:01 → N.TELEN 11:40
PROVIDERS: ADMIT Internal Medicine; ATTEND Emergency Medicine